=== PATIENT | female | born 1995 | race Hispanic/Latino ===

== ENCOUNTER 2017-10-05 07:33 | Emergency (ER) | payer SELFPAY ==
[2017-10-05] MEDS ORDERED: IBUPROFEN 400 MG TAB ONE (08:00)
[2017-10-05] MEDS ORDERED: NA CHLORIDE 0.9% 1,000 ML ONE (08:00)
[2017-10-05] MEDS ORDERED: LEVALBUTEROL 1.25 MG/3 ML NEB ONE ×2 (08:00→10:41)
--- NOTE | 2017-10-05 08:24 | RAD REPORT ---
EXAM DESCRIPTION: RAD - Chest Single View - 10/05/2017 8:13 am CLINICAL HISTORY: Cough, fever, shortness of breath COMPARISON: May 2016 TECHNIQUE: AP portable chest image was obtained 0756 hours . FINDINGS: Lungs are clear. Heart and vasculature are normal. No measurable pleural effusion and no p neumothorax. No gross bony abnormality seen. No acute aortic findings suspected. IMPRESSION: No acute cardiopulmonary process. No significant interval change.
[2017-10-05 08:41] LABS: Bicarbonate 22 mEq/L (21-31); Glucose Level 141 mg/dL (65-120); Lipase 32 U/L (22-51); Potassium 4.2 mEq/L (3.6-5.0); Sodium Level 136 mEq/L (135-145)
[2017-10-05 08:47] LABS: ALT/SGPT 35 IU/L (10-60); AST/SGOT 32 IU/L (10-42); Albumin 4.2 g/dL (3.2-5.5); Alkaline Phosphatase 101 IU/L (42-121); BUN Blood Urea Nitrogen 18 mg/dL (6-20); Bilirubin Direct 0.1 mg/dL (0-0.2); Protein, Total 8.4 g/dL (6.0-8.3)
--- NOTE | 2017-10-05 09:14 | EKG ---
Test Date: 2017-10-05 Test Time: 08:14:39 Customs Investigator: CINDY MEASUREMENT RESULTS: Intervals: Rate: 118 MD: 120 QRSD: 72 QT: 322 QTc: 451 Roscoe: P: 45 MD: 120 QRS: 79 T: 17 INTERPRETIVE STATEMENTS: Sinus tachycardia Otherwise normal ECG Compared to ECG 06/10/2016 01:25:26 No significant changes Electronically Signed On 10-05-17 09:14:18 CDT by Scott Donovan
[2017-10-05 09:23] LABS: Hematocrit 37.9 % (36.0-45.0); MCH 31.1 pg (27.0-35.0); MCV 90.8 fL (80-100); MPV 8.6 fL (7.6-11.3); RBC Red Blood Cell Count 4.17 M/uL (3.86-4.86)
[2017-10-05 09:47] LABS: Urine Blood 2+ (NEG); Urine Glucose NEGATIVE (NEG); Urine Protein 3+ (NEG); Urine Specific Gravity >1.030 (1.005-1.030); Urine pH 7.5 (5.0-7.0)
--- NOTE | 2017-10-05 10:00 | RAD REPORT ---
EXAM DESCRIPTION: CT - Chest For Pe Angio - 10/05/2017 9:49 am CLINICAL HISTORY: Cough, fever, shortness of breath COMPARISON: Chest films same date, PE study May 2016 TECHNIQUE: Dynamically enhanced 3 mm thick images of the chest were obtained during administration o f approximately 150mL Isovue 370 IV contrast. Coronal and oblique reconstruction images were generate d and reviewed. Exam utilizes a protocol to evaluate the pulmonary arterial tree. All CT scans are performed using dose optimization technique as appropriate and may include automated exposure control or mA/KV adjustment according to patient size. FINDINGS: Contrast density within the pulmonary arterial tree is not optimal but is felt to be suffi cient for diagnostic purposes. No pulmonary emboli seen. The aorta as imaged shows no acute or suspicious finding. No pericardial thickening or effusion. No infiltrate or mass in the lung parenchyma. Minimal scarring or atelectasis changes noted. No pleur al effusion or pleural thickening. No pneumothorax seen. No mediastinal or hilar suspicious masses. No chest wall masses or abnormal axillary lymphadenopathy. Limited imaging of the upper abdomen shows a pronounced fatty infiltration pattern of an enlarged saranya er. IMPRESSION: No pulmonary emboli identified. No other significant CT chest finding. Pronounced fatty infiltration of a partially imaged liver. Liver appears prominent in size.
[2017-10-05 10:23] LABS: Blood Morphology Comment NOT SEEN (NOT SEEN); Platelet Estimate ADEQ
[2017-10-05] MEDS ORDERED: METHYLPREDNISOLONE 125 MG INJ ONE (10:40)
[2017-10-05] MEDS ORDERED: AZITHROMYCIN 500 MG/250 ML BAG IV ONE (10:45)
--- NOTE | 2017-10-05 11:24 | ER ---
Nurse's Notes [facility] Name: Mckenzie Ornelas Age: 22 yrs Sex: Female : 1995 Arrival Date: 10/05/2017 Time: 07:35 Bed 6 Private MD: Diagnosis: Bronchitis, not specified as acute or chronic;Wheezing Presentation: 10/05 07:39 Presenting complaint: Patient states: fever, cough and shortness of breath that began ss approx 5-6 days ago. Transition of care: patient was not received from another setting of care. Onset of symptoms was September 30, 2017. Initial Sepsis Screen: Does the patient meet any 2 criteria? RR > 20 per min. HR > 90 bpm. Does the patient have a suspected source of infection? Yes: Productive cough/pneumonia. Care prior to arrival: None. 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 - Social history:: Smoking status: Patient/guardian denies using tobacco. - Family history:: not pertinent. - Hospitalizations: : No recent hospitalization is reported. Screenin:15 Abuse screen: Denies threats or abuse. Denies injuries from another. Nutritional sv screening: No deficits noted. Tuberculosis screening: No symptoms or risk factors identified. Fall Risk None identified. Assessment: 08:03 General: Appears in no apparent distress. uncomfortable, well developed, Behavior is sv calm, cooperative, appropriate for age. General: Reports fever. Pain: Denies pain. Neuro: Level of Consciousness is awake, alert, obeys commands, Oriented to person, place, time, situation, Moves all extremities. Full function Speech is normal. Cardiovascular: Thorax. Respiratory: Reports cough that is non-productive, Respiratory effort is even, unlabored, Respiratory pattern is regular, symmetrical, Breath sounds are diminished in left posterior upper lobe and left posterior lower lobe Breath sounds with wheezes bilaterally. Derm: Skin is normal. Musculoskeletal: Range of motion: intact in all extremities. 09:00 Reassessment: Patient appears in no apparent distress at this time. No changes from hb previously documented assessment. Patient and/or family updated on plan of care and expected duration. Pain level reassessed. 10:49 Reassessment: Patient appears in no apparent distress at this time. Patient and/or sv family updated on plan of care and expected duration. Pain level reassessed. Patient is alert, oriented x 3, equal unlabored respirations, skin warm/dry/pink. 11:16 Reassessment: Patient appears in no apparent distress at this time. Patient and/or sv family updated on plan of care and expected duration. Pain level reassessed. Patient is alert, oriented x 3, equal unlabored respirations, skin warm/dry/pink. Patient states feeling better. Patient states symptoms have improved. 11:25 Reassessment: Pt up for discharge but pt receiving IV antibiotic and is to receive sv another breathing treatment and magnesium sulfate IV. Vital Signs: 07:40 BP 130 / 88; Pulse 129; Resp 32; Temp 99.3(TE); Pulse Ox 93% on R/A; Height 4 ft. 11 ss in. (149.86 cm); Pain 0/10; 08:41 BP 125 / 67; Pulse 108; Resp 26; Pulse Ox 100% on 10% Nebulizer Mask; jb1 09:16 BP 130 / 82; Pulse 104; Resp 24; Pulse Ox 96% on 2 lpm NC; hb 10:04 BP 121 / 70; Pulse 101; Resp 24; Pulse Ox 96% on 2 lpm NC; jb1 11:02 BP 125 / 68; Pulse 99; Resp 22; Pulse Ox 97% on 2 lpm NC; jb1 ED Course: 07:35 Patient arrived in ED. as 07:40 Triage completed. ss 07:40 Arm band placed on right wrist. ss 07:42 Kvng Mejia MD is Attending Physician. rn 07:56 Amanda Smith RN is Primary Nurse. sv 08:00 Patient has correct armband on for positive identification. Placed in gown. Bed in low hb position. Call light in reach. Side rails up X 1. 08:04 X-ray completed. Portable x-ray completed in exam room. Patient tolerated procedure jb2 well. 08:05 XRAY CXR (1 view) In Process Unspecified. EDMS 08:05 Initial lab(s) drawn, by ED staff, sent to lab. First set of blood cultures drawn by ED sv staff. Inserted saline lock: 20 gauge in right antecubital area, using aseptic technique. ,using aseptic technique. done by Shivani Hayes RN Blood collected. 09:19 Radiology exam delayed due to test not completed at this time. jg1 09:23 Throat Culture Sent. sv 09:23 Urine Dipstick--Ancillary (enter results) Sent. sv 09:44 CT completed. Patient tolerated procedure well. Patient moved to CT via stretcher. jg1 09:50 CT Chest For PE Angio In Process Unspecified. EDMS 12:52 No provider procedures requiring assistance completed. IV discontinued, intact, hb bleeding controlled, No redness/swelling at site. Pressure dressing applied. Administered Medications: 08:05 Drug: Xopenex 1.25 mg Route: Inhalation; hb 08:05 Drug: Ibuprofen 800 mg Route: PO; hb 09:23 Follow up: Response: No adverse reaction sv 08:13 Drug: NS 0.9% 1000 ml Route: IV; Rate: 1000 ml; Site: right antecubital; hb 10:49 Drug: SOLU-Medrol 125 mg Route: IVP; Site: right antecubital; sv 11:16 Follow up: Response: No adverse reaction sv 10:49 Drug: Xopenex (3) 1.25 mg Route: Inhalation; sv 11:16 Follow up: Response: No adverse reaction; Marked relief of symptoms sv 11:16 Drug: Zithromax 500 mg Route: IVPB; Infused Over: 1 hrs; Site: right antecubital; sv 12:16 Follow up: Response: No adverse reaction; IV Status: Completed infusion; IV Intake: sv 250ml 11:30 Drug: AtroVENT Aerosol 0.5 mg Route: Inhalation; sv 11:30 Drug: Magnesium Sulfate 1 grams Route: IVPB; Infused Over: 1 hrs; Site: right sv antecubital; 12:30 Follow up: Response: No adverse reaction; IV Status: Completed infusion; IV Intake: sv 100ml Intake: 12:16 IV: 250ml; Total: 250ml. sv 12:30 IV: 100ml; Total: 350ml. sv Outcome: 11:23 Discharge ordered by MD. hdz 12:52 Discharged to home ambulatory. hb 12:52 Condition: stable 12:52 Discharge instructions given to patient, family, Instructed on discharge instructions, follow up and referral plans. medication usage, Demonstrated understanding of instructions, follow-up care, medications, Prescriptions given X 3. 12:53 Patient left the ED. hb Signatures: Dispatcher [employer] EDMS Sam Devi1 Amanda Smith, JEFFERY RN Bubba Willson2 Rachael Hawkins Amelia as Nieto, Roman, MD MD rn Smirch, Shelby, RN RN Shivani Jiménez RN RN hb
--- NOTE | 2017-10-05 11:24 | EDPHYS ---
Physician Documentation [facility] Name: Mckenzie Ornelas Age: 22 yrs Sex: Female : 1995 Arrival Date: 10/05/2017 Time: 07:35 Bed 6 Private MD: ED Physician Kvng Mejia HPI: 10/05 07:58 This 22 yrs old Female presents to ER via Ambulatory with complaints of Cough, rn Fever. 07:58 The patient or guardian reports cough, described as moderate, with productive sputum. rn Onset: The symptoms/episode began/occurred 3 day(s) ago. Severity of symptoms: At their worst the symptoms were moderate, in the emergency department the symptoms are unchanged. Modifying factors: The symptoms are alleviated by nothing, the symptoms are aggravated by nothing. The patient has not experienced similar symptoms in the past. Reports fever, cough, sob, for 3 days, worsening, green sputum, no sick contacts, no hx of dvt/PE, no risk factors for dvt/pe.. 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 - Social history:: Smoking status: Patient/guardian denies using tobacco. - Family history:: not pertinent. - Hospitalizations: : No recent hospitalization is reported. ROS: 07:58 Constitutional: Negative for weight loss, Eyes: Negative for injury, pain, redness, and furnace helper, ENT: + sore throat Neck: Negative for injury, pain, and swelling, Cardiovascular: Negative for chest pain, palpitations, and edema, Respiratory: + sob and cough Abdomen/GI: Negative for abdominal pain, nausea, vomiting, diarrhea, and constipation, Back: Negative for injury and pain, MS/Extremity: Negative for injury and deformity, Skin: Negative for injury, rash, and discoloration, Neuro: Negative for headache, weakness, numbness, tingling, and seizure. Exam: 07:58 Constitutional: This is a well developed, well nourished patient who is awake, alert, rn moderate tachypnea Head/Face: Normocephalic, atraumatic. Eyes: Pupils equal round and reactive to light, extra-ocular motions intact. Lids and lashes normal. Conjunctiva and sclera are non-icteric and not injected. Cornea within normal limits. Periorbital areas with no swelling, redness, or edema. ENT: mild pharyngela erythema, no stridor, no oral swelling, absent tonsils Neck: + cervical LAD Cardiovascular: tachycardic, regular, no murmur Respiratory: + moderate tachypnea, faint exp wheezing at bases. Abdomen/GI: Soft, non-tender, with normal bowel sounds. No distension or tympany. No guarding or rebound. No evidence of tenderness throughout. MS/ Extremity: Pulses equal, no cyanosis. Neurovascular intact. Full, normal range of motion. Equal circumference. Neuro: Awake and alert, GCS 15, oriented to person, place, time, and situation. Cranial nerves II-XII grossly intact. Motor strength 5/5 in all extremities. Sensory grossly intact. Cerebellar exam normal. Normal gait. Vital Signs: 07:40 BP 130 / 88; Pulse 129; Resp 32; Temp 99.3(TE); Pulse Ox 93% on R/A; Height 4 ft. 11 ss in. (149.86 cm); Pain 0/10; 08:41 BP 125 / 67; Pulse 108; Resp 26; Pulse Ox 100% on 10% Nebulizer Mask; jb1 09:16 BP 130 / 82; Pulse 104; Resp 24; Pulse Ox 96% on 2 lpm NC; hb 10:04 BP 121 / 70; Pulse 101; Resp 24; Pulse Ox 96% on 2 lpm NC; jb1 11:02 BP 125 / 68; Pulse 99; Resp 22; Pulse Ox 97% on 2 lpm NC; jb1 MDM: 07:42 Patient medically screened. rn 11:21 Response to treatment: the patient's symptoms have markedly improved after treatment, rn and as a result, I will discharge patient. Special discussion: I discussed with the patient/guardian in detail that at this point there is no indication for admission to the hospital. It is understood, however, that if the symptoms persist or worsen the patient needs to return immediately for re-evaluation. Based on the history and exam findings, there is no indication for further emergent testing or inpatient evaluation. I discussed with the patient/guardian the need to see the primary care provider for further evaluation of the symptoms. I discussed with the patient/guardian the need to see the electronic test technician for further evaluation of the symptoms. ED course: improved air movement both lungs, still faint wheezing, feels better, ct normal, most likely bronchitis with reactive airway disease, will dc home with steroids/abx/inhaler, and recommend outpt pulmonology eval. . 10/05 07:53 Order name: Blood Culture Adult (2) 10/05 07:53 Order name: BMP; Complete Time: 08:58 10/05 07:53 Order name: BNP; Complete Time: 10:10 10/05 07:53 Order name: CBC with Diff 10/05 07:53 Order name: Hepatic Function; Complete Time: 08:58 10/05 07:53 Order name: Lipase; Complete Time: 08:58 10/05 07:53 Order name: Troponin (emerg Dept Use Only); Complete Time: 08:58 10/05 07:53 Order name: Strep; Complete Time: 08:58 10/05 07:53 Order name: Flu; Complete Time: 08:58 10/05 07:53 Order name: Procalcitonin; Complete Time: 10:10 10/05 08:15 Order name: Urine Dipstick--Ancillary (enter results) [facility] 10/05 08:15 Order name: Urine --Ancillary (enter results); Complete Time: 10:10 [facility] 10/05 08:15 Order name: Urine Dipstick-Ancillary; Complete Time: 10:10 [facility] 10/05 08:49 Order name: Throat Culture [facility] 10/05 07:53 Order name: Urine Test (obtain specimen); Complete Time: 08:14 10/05 07:53 Order name: XRAY CXR (1 view); Complete Time: 08:30 10/05 07:53 Order name: EKG; Complete Time: 07:53 10/05 07:53 Order name: Cardiac monitoring; Complete Time: 08:13 10/05 07:53 Order name: EKG - Nurse/Tech; Complete Time: 08:13 10/05 08:31 Order name: CT Chest For PE Angio; Complete Time: 10:10 10/05 09:29 Order name: Manual Differential [facility] 10/05 12:21 Order name: Diet Regular; Complete Time: 12:22 hb 10/05 07:53 Order name: IV Saline Lock; Complete Time: 08:13 rn 10/05 07:53 Order name: Labs collected and sent; Complete Time: 08:14 rn 10/05 07:53 Order name: O2 Per Protocol; Complete Time: 08:14 rn 10/05 07:53 Order name: O2 Sat Monitoring; Complete Time: 08:14 rn 10/05 07:53 Order name: Urine Dipstick-Ancillary (obtain specimen); Complete Time: 08:14 rn Administered Medications: 08:05 Drug: Xopenex 1.25 mg Route: Inhalation; hb 08:05 Drug: Ibuprofen 800 mg Route: PO; hb 09:23 Follow up: Response: No adverse reaction sv 08:13 Drug: NS 0.9% 1000 ml Route: IV; Rate: 1000 ml; Site: right antecubital; hb 10:49 Drug: SOLU-Medrol 125 mg Route: IVP; Site: right antecubital; sv 11:16 Follow up: Response: No adverse reaction sv 10:49 Drug: Xopenex (3) 1.25 mg Route: Inhalation; sv 11:16 Follow up: Response: No adverse reaction; Marked relief of symptoms sv 11:16 Drug: Zithromax 500 mg Route: IVPB; Infused Over: 1 hrs; Site: right antecubital; sv 12:16 Follow up: Response: No adverse reaction; IV Status: Completed infusion; IV Intake: sv 250ml 11:30 Drug: AtroVENT Aerosol 0.5 mg Route: Inhalation; sv 11:30 Drug: Magnesium Sulfate 1 grams Route: IVPB; Infused Over: 1 hrs; Site: right sv antecubital; 12:30 Follow up: Response: No adverse reaction; IV Status: Completed infusion; IV Intake: sv 100ml Disposition: 10/05/17 11:23 Discharged to Home. Impression: Bronchitis, not specified as acute or chronic, Wheezing. - Condition is Stable. - Discharge Instructions: Acute Bronchitis, How to Use an Inhaler, Cough, Adult. - Prescriptions for Prednisone 20 mg Oral Tablet - take 3 tablet by ORAL route once daily for 5 days; 15 tablet. Zithromax Z- Fidel 250 mg Oral Tablet - take 1 tablet by ORAL route as directed for 5 days Day 1 - take two (2) tablets one time. Day 2, 3, 4 , 5 take one (1) tablet once daily.; 6 tablet. Albuterol Sulfate 90 mcg/actuation - inhale 1-2 puff by INHALATION route every 4-6 hours; 1 Inhaler. - Medication Reconciliation Form, Thank You Letter, Antibiotic Education, Prescription Opioid Use, Work release form form. - Follow up: Private Physician; When: As needed; Reason: Recheck today's complaints, Re-evaluation by your physician. - Problem is new. - Symptoms have improved. Signatures: Dispatcher [employer] Amanda Wolf, JEFFERY RN Kvng Weinberg MD MD rn Smirch, Shelby, RN RN ss Baxter, Heather, RN RN
[2017-10-05] MEDS ORDERED: MAGNESIUM SULFATE 1 gm IVPB 1 GM/100 ML BAG IV ONE (11:27)
[2017-10-05] MEDS ORDERED: IPRATROPIUM BROM 0.5MG/2.5ML ONE (11:27)
[2017-10-05 12:59] VITALS: TEMP 99.3
[2017-10-05 13:04] VITALS: BP 125/68; O2SAT 97
== END 2017-10-05 12:53 | disposition home or self-care (01) ==
LOC: ER 07:33
DX: J40 Bronchitis, not specified as acute or chronic (principal); R06.2 Wheezing; Z88.0 Allergy status to penicillin
CPT/HCPCS: 36415; 71045; 71275; 80048; 80076; 81003; 81025; 83690; 83880; 84145; 84484; 85025; 87040; 87070; 87081; 87804; 93005; 96365; 96375; 99285; J0456; J2930; J3475; J7030; Q9967

== ENCOUNTER 2018-01-02 21:31 | Emergency (ER) | payer SELFPAY ==
[2018-01-02 22:26] LABS: Urine Blood TRACE (NEG); Urine Glucose NEGATIVE (NEG); Urine Protein 3+ (NEG); Urine Specific Gravity >1.030 (1.005-1.030); Urine pH 6.5 (5.0-7.0)
[2018-01-02] MEDS ORDERED: predniSONE 20 MG TAB ONE (22:31)
[2018-01-02] MEDS ORDERED: ALBUTEROL 2.5 MG/3 ML NEB SOL ONE (22:31)
[2018-01-02] MEDS ORDERED: IPRATROPIUM BROM 0.5MG/2.5ML ONE (22:31)
[2018-01-02] MEDS ORDERED: ONDANSETRON 4 MG (ODT) TAB ONE (22:32)
[2018-01-02] MEDS ORDERED: NA CHLORIDE 0.9% 1,000 ML ONE (23:20)
--- NOTE | 2018-01-03 00:25 | ER ---
Nurse's Notes [facility] Name: Mckenzie Ornelas Age: 22 yrs Sex: Female : 1995 Arrival Date: 01/02/2018 Time: 21:46 Bed 13 Private MD: Diagnosis: Fever presenting with conditions classified elsewhere;Acute bronchitis;Dehydration Presentation: 01/02 21:46 Presenting complaint: Patient states: fever X2 days. pt c/o vomiting today. pt c/o body ak1 aches and headache. Transition of care: patient was not received from another setting of care. Onset of symptoms was January 01, 2018. Risk Assessment: Do you want to hurt yourself or someone else? Patient reports no desire to harm self or others. Initial Sepsis Screen: Does the patient meet any 2 criteria? No. Patient's initial sepsis screen is negative. Does the patient have a suspected source of infection? No. Patient's initial sepsis screen is negative. Care prior to arrival: None. 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 - Social history:: Smoking status: Patient/guardian denies using tobacco. - Ebola Screening: : No symptoms or risks identified at this time. Screenin:48 Abuse screen: Denies threats or abuse. Denies injuries from another. Nutritional ak1 screening: No deficits noted. Tuberculosis screening: No symptoms or risk factors identified. Fall Risk None identified. Assessment: 22:00 General: Appears in no apparent distress. uncomfortable, ill, Behavior is calm, bs1 cooperative, appropriate for age. Pain: Complains of pain in headache, bilateral ears. Neuro: Level of Consciousness is awake, alert, obeys commands, Oriented to person, place, time, situation, Appropriate for age Reports dizziness, headache weakness. Cardiovascular: Denies chest pain, shortness of breath, Heart tones S1 S2 present Capillary refill < 3 seconds Patient's skin is warm and dry. Respiratory: Airway is patent Trachea midline Respiratory effort is even, unlabored, Respiratory pattern is regular, symmetrical, Breath sounds are clear bilaterally. Respiratory: Reports cough that is non-productive. GI: Abdomen is round non-distended, Bowel sounds present X 4 quads. : No signs and/or symptoms were reported regarding the genitourinary system. EENT: Nares with drainage noted reports chest congestion. Derm: Skin is intact, Skin is pink, warm \T\ dry. normal. Musculoskeletal: No deficits noted. 23:45 Reassessment: Patient appears in no apparent distress at this time. Patient and/or bs1 family updated on plan of care and expected duration. Pain level reassessed. Patient is alert, oriented x 3, equal unlabored respirations, skin warm/dry/pink. Patient states feeling better. Patient states symptoms have improved. 01/03 00:45 Reassessment: Patient states understanding of DC instructions. bs1 Vital Signs: 01/02 21:48 BP 133 / 85; Pulse 119; Resp 18; Temp 99.2; Pulse Ox 96% on R/A; Weight 79.38 kg (R); ak1 Height 4 ft. 11 in. (149.86 cm) (R); Pain 6/10; 22:40 BP 116 / 82; Pulse 105; Resp 18; Pulse Ox 99% on R/A; bs1 23:40 BP 114 / 86; Pulse 101; Resp 18 S; Pulse Ox 99% on R/A; bs1 01/03 00:45 BP 110 / 67; Pulse 100; Resp 18; Temp 98.9(O); Pulse Ox 100% on R/A; Pain 0/10; bs1 01/02 21:48 Body Mass Index 35.35 (79.38 kg, 149.86 cm) ak1 ED Course: 01/02 21:46 Patient arrived in ED. ak1 21:47 Triage completed. ak1 21:48 Arm band placed on Patient placed in an exam room, on a stretcher, Patient notified of ak1 wait time. 21:56 Oliver Islas MD is Attending Physician. 22:00 Becca Max, JEFFERY is Primary Nurse. bs1 22:26 Patient moved to radiology via wheelchair. sw 22:30 X-ray completed. Patient tolerated procedure well. Patient moved back from radiology. sw 22:30 XRAY Chest Pa And Lat (2 Views) In Process Unspecified. EDMS 22:55 Patient has correct armband on for positive identification. Bed in low position. Call bs1 light in reach. Side rails up X 1. Pulse ox on. NIBP on. 23:24 Inserted saline lock: 22 gauge in left antecubital area, using aseptic technique. [id number] 01/03 00:43 No provider procedures requiring assistance completed. IV discontinued, bleeding bs1 controlled, No redness/swelling at site. Pressure dressing applied. Administered Medications: 01/02 22:41 Drug: Zofran 4 mg Route: PO; bs1 01/03 00:45 Follow up: Response: No adverse reaction bs1 01/02 22:41 Drug: Albuterol 2.5 mg Route: Inhalation; bs1 01/03 00:45 Follow up: Response: No adverse reaction bs1 01/02 22:41 Drug: AtroVENT Aerosol 0.5 mg Route: Inhalation; bs1 01/03 00:46 Follow up: Response: No adverse reaction bs1 01/02 22:41 Drug: predniSONE 40 mg Route: PO; bs1 01/03 00:45 Follow up: Response: No adverse reaction bs1 01/02 23:22 Drug: NS 0.9% 1000 ml Route: IV; Rate: 1 bolus; Site: left antecubital; bs1 01/03 00:45 Follow up: IV Status: Completed infusion bs1 Outcome: 00:24 Discharge ordered by MD. 00:43 Discharged to home ambulatory, with family. bs1 00:43 Condition: stable 00:43 Discharge instructions given to patient, Instructed on discharge instructions, follow up and referral plans. medication usage, Demonstrated understanding of instructions, follow-up care, medications, Prescriptions given X 3. 00:48 Patient left the ED. bs1 Signatures: Dispatcher [employer] EDMS Ronna Hassan RN RN ak1 Ivy Bain Oliver Islas MD MD gs Salazar, Brittany, RN RN bs1 Eder Denton ks6 Corrections: (The following items were deleted from the chart) 01/02 21:51 21:46 Acuity: MARY BETH 4 ak1 akBatsheva
--- NOTE | 2018-01-03 00:25 | EDPHYS ---
Physician Documentation [facility] Name: Mckenzie Ornelas Age: 22 yrs Sex: Female : 1995 Arrival Date: 01/02/2018 Time: 21:46 Bed 13 Private MD: ED Physician Oliver Islas HPI: 01/02 23:23 This 22 yrs old Female presents to ER via Ambulatory with unknown complaint. gs 23:23 The patient or guardian reports cough, described as moderate, difficulty breathing, flu gs symptoms, arthralgias, low-grade fever, myalgias. Onset: The symptoms/episode began/occurred gradually. Severity of symptoms: At their worst the symptoms were moderate, in the emergency department the symptoms are unchanged. Modifying factors: The symptoms are alleviated by Tylenol. Associated signs and symptoms: The patient has no apparent associated signs or symptoms, Pertinent positives: fever, vomiting, Pertinent negatives: chest pain, ear ache. The patient has experienced similar episodes in the past, a few times. 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 - Social history:: Smoking status: Patient/guardian denies using tobacco. - Ebola Screening: : No symptoms or risks identified at this time. ROS: 23:23 All other systems are negative. gs Exam: 23:23 Head/Face: Normocephalic, atraumatic. Eyes: Pupils equal round and reactive to light, gs extra-ocular motions intact. Lids and lashes normal. Conjunctiva and sclera are non-icteric and not injected. Cornea within normal limits. Periorbital areas with no swelling, redness, or edema. ENT: Nares patent. No nasal discharge, no septal abnormalities noted. Tympanic membranes are normal and external auditory canals are clear. Oropharynx with no redness, swelling, or masses, exudates, or evidence of obstruction, uvula midline. Mucous membranes moist. Neck: Trachea midline, no thyromegaly or masses palpated, and no cervical lymphadenopathy. Supple, full range of motion without nuchal rigidity, or vertebral point tenderness. No Meningismus. Chest/axilla: Normal chest wall appearance and motion. Nontender with no deformity. No lesions are appreciated. 23:23 Abdomen/GI: Soft, non-tender, with normal bowel sounds. No distension or tympany. No guarding or rebound. No evidence of tenderness throughout. Back: No spinal tenderness. No costovertebral tenderness. Full range of motion. Skin: Warm, dry with normal turgor. Normal color with no rashes, no lesions, and no evidence of cellulitis. MS/ Extremity: Pulses equal, no cyanosis. Neurovascular intact. Full, normal range of motion. Neuro: Awake and alert, GCS 15, oriented to person, place, time, and situation. Cranial nerves II-XII grossly intact. Motor strength 5/5 in all extremities. Sensory grossly intact. Cerebellar exam normal. Normal gait. 23:23 Constitutional: The patient appears alert, awake, non-toxic. 23:23 Cardiovascular: Rate: tachycardic, Rhythm: regular, Pulses: no pulse deficits are appreciated, Heart sounds: normal. 23:23 Respiratory: the patient does not display signs of respiratory distress, Respirations: normal, symetrical, no use of accessory muscles, Breath sounds: wheezing: expiratory is heard diffusely. Vital Signs: 21:48 BP 133 / 85; Pulse 119; Resp 18; Temp 99.2; Pulse Ox 96% on R/A; Weight 79.38 kg (R); ak1 Height 4 ft. 11 in. (149.86 cm) (R); Pain 6/10; 22:40 BP 116 / 82; Pulse 105; Resp 18; Pulse Ox 99% on R/A; bs1 23:40 BP 114 / 86; Pulse 101; Resp 18 S; Pulse Ox 99% on R/A; bs1 01/03 00:45 BP 110 / 67; Pulse 100; Resp 18; Temp 98.9(O); Pulse Ox 100% on R/A; Pain 0/10; bs1 01/02 21:48 Body Mass Index 35.35 (79.38 kg, 149.86 cm) ak1 MDM: 01/02 22:18 Patient medically screened. 23:23 Differential Diagnosis: Bronchitis Influenza Pneumonia. Data reviewed: vital signs, nurses notes. Response to treatment: the patient's symptoms have markedly improved after treatment, and as a result, I will discharge patient. 01/02 22:21 Order name: Urine Dipstick--Ancillary (enter results); Complete Time: 23:03 il 01/02 22:21 Order name: Urine --Ancillary (enter results); Complete Time: 23:03 il 01/02 22:19 Order name: XRAY Chest Pa And Lat (2 Views) Administered Medications: 22:41 Drug: Zofran 4 mg Route: PO; rust 01/03 00:45 Follow up: Response: No adverse reaction rust 01/02 22:41 Drug: Albuterol 2.5 mg Route: Inhalation; bs1 01/03 00:45 Follow up: Response: No adverse reaction rust 01/02 22:41 Drug: AtroVENT Aerosol 0.5 mg Route: Inhalation; 1 01/03 00:46 Follow up: Response: No adverse reaction rust 01/02 22:41 Drug: predniSONE 40 mg Route: PO; rust 01/03 00:45 Follow up: Response: No adverse reaction rust 01/02 23:22 Drug: NS 0.9% 1000 ml Route: IV; Rate: 1 bolus; Site: left antecubital; 1 01/03 00:45 Follow up: IV Status: Completed infusion bs1 Disposition: 01/03/18 00:24 Discharged to Home. Impression: Fever presenting with conditions classified elsewhere, Acute bronchitis, Dehydration. - Condition is Stable. - Discharge Instructions: Acute Bronchitis, Adult, Dehydration, Adult, Fever, Adult. - Prescriptions for Prednisone 20 mg Oral Tablet - take 1 tablet by ORAL route once daily for 5 days; 5 tablet. Zofran 4 mg Oral Tablet - take 1 tablet by ORAL route every 12 hours As needed; 6 tablet. Albuterol Sulfate 90 mcg/actuation - inhale 1-2 puff by INHALATION route every 4-6 hours; 1 Inhaler. - Medication Reconciliation Form, Thank You Letter, Antibiotic Education, Prescription Opioid Use, Work release form form. - Follow up: Private Physician; When: 2 - 3 days; Reason: Re-evaluation by your physician. Signatures: Dispatcher [employer] Ronna Hsu RN RN ak1 Oliver Islas MD MD gs Salazar, Brittany RN RN bs1 Corrections: (The following items were deleted from the chart) 00:48 00:24 01/03/2018 00:24 Discharged to Home. Impression: Fever presenting with conditions bs1 classified elsewhere; Acute bronchitis; Dehydration. Condition is Stable. Forms are Medication Reconciliation Form, Thank You Letter, Antibiotic Education, Prescription Opioid Use. Follow up: Private Physician; When: 2 - 3 days; Reason: Re-evaluation by your physician. gs
[2018-01-03 00:56] VITALS: BP 110/67; TEMP 98.9; O2SAT 100
--- NOTE | 2018-01-03 08:12 | RAD REPORT ---
EXAM DESCRIPTION: Heather Allison (2 Views)01/02/2018 10:34 pm CLINICAL HISTORY: Fever COMPARISON: September 2017 FINDINGS: The lungs appear clear of acute infiltrate. The heart is normal size IMPRESSION: No acute abnormalities displayed
== END 2018-01-03 00:48 | disposition home or self-care (01) ==
LOC: ER 21:31
DX: J20.9 Acute bronchitis, unspecified (principal); E86.0 Dehydration; Z88.0 Allergy status to penicillin
CPT/HCPCS: 71046; 81003; 81025; 96360; 99284; J7030; J7512

== ENCOUNTER 2018-10-07 01:56 | Emergency (ER) | payer SELFPAY ==
[2018-10-07] MEDS ORDERED: FAMOTIDINE 20 MG/2 ML VIAL IV ONE (02:40)
[2018-10-07] MEDS ORDERED: NA CHLORIDE 0.9% 1,000 ML ONE (02:40)
[2018-10-07] MEDS ORDERED: METOCLOPRAMIDE 10 MG/2mL INJ ONE (02:40)
[2018-10-07 03:10] LABS: Absolute Lymphocytes (CBC) 3.2 K/uL (0.7-4.9); Absolute Monocytes 0.4 K/uL (0.1-1.3); Absolute Neutrophil 5.3 K/uL (1.8-8.0); Basophils % 0.3 % (0-1.3); Eosinophils % 4.5 % (0-4.4); Lymphocytes % 34.4 % (15.3-44.8); RBC Red Blood Cell Count 3.93 M/uL (3.86-4.86)
[2018-10-07 03:36] LABS: ALT/SGPT 51 U/L (12-78); AST/SGOT 33 U/L (15-37); Albumin 3.8 g/dL (3.4-5.0); Alkaline Phosphatase 91 U/L (45-117); BUN Blood Urea Nitrogen 21 mg/dL (7-18); Bicarbonate 25 mmol/L (21-32); Bilirubin Direct 0.1 mg/dL (0-0.2); Bilirubin Total 0.8 mg/dL (0.2-1.0); Glucose Level 108 mg/dL (74-106); Lipase 169 U/L (73-393); Potassium 3.5 mmol/L (3.5-5.1); Protein, Total 7.8 g/dL (6.4-8.2); Sodium Level 142 mmol/L (136-145)
--- NOTE | 2018-10-07 03:53 | EDPHYS ---
Physician Documentation [facility] Name: Mckenzie Ornelas Age: 23 yrs Sex: Female : 1995 Arrival Date: 10/07/2018 Time: 01:59 Bed 5 Private MD: ED Physician Lauri Doyle HPI: 10/07 02:25 This 23 yrs old Female presents to ER via Ambulatory with complaints of cp Nausea/Vomiting, Headache, Dizziness, Abdominal Pain. 02:25 The patient presents to the emergency department with nausea, that is moderate, cp vomiting, that is intermittent, described as bilious, diarrhea, that is intermittent. 02:25 Onset: The symptoms/episode began/occurred 3 day(s) ago. cp 02:25 Associated signs and symptoms: Pertinent negatives: constipation, dysuria, fever, GI cp bleeding. [place]: 02:08 LMP 09/30/2018 jd3 Historical: - Allergies: 02:08 PENICILLINS; jd3 - Home Meds: 02:08 None [Active]; jd3 - PMHx: 02:08 None; jd3 - PSHx: 02:08 Tonsillectomy; Cholecystectomy; jd3 - Immunization history:: Adult Immunizations up to date. - Social history:: Smoking status: Patient/guardian denies using tobacco. - Ebola Screening: : Patient negative for fever greater than or equal to 101.5 degrees Fahrenheit, and additional compatible Ebola Virus Disease symptoms. ROS: 02:30 Constitutional: Positive for poor PO intake, Negative for body aches, chills, fever. cp 02:30 Eyes: Negative for injury, pain, redness, and discharge. cp 02:30 ENT: Negative for drainage from ear(s), ear pain, sore throat, difficulty swallowing, difficulty handling secretions. 02:30 Neck: Negative for pain with movement, pain at rest, stiffness, tenderness. 02:30 Cardiovascular: Negative for chest pain. 02:30 Respiratory: Negative for cough, shortness of breath, wheezing. 02:30 Abdomen/GI: Positive for abdominal pain, nausea and vomiting, diarrhea, Negative for constipation, hematemesis, black/tarry stool, rectal bleeding. 02:30 Back: Negative for pain at rest, pain with movement. 02:30 : Negative for urinary symptoms. 02:30 Skin: Negative for rash. 02:30 Neuro: Positive for dizziness, headache, Negative for altered mental status, weakness. cp 02:30 All other systems are negative. Exam: 02:45 Constitutional: The patient appears in no acute distress, alert, awake, non-toxic, well cp developed, well nourished. 02:45 Head/Face: Normocephalic, atraumatic. cp 02:45 Eyes: Periorbital structures: appear normal, Conjunctiva: normal, no exudate, no injection, Sclera: no appreciated abnormality, Lids and lashes: appear normal, bilaterally. 02:45 ENT: External ear(s): are unremarkable, Ear canal(s): are normal, clear, TM's: dullness, bilaterally, Nose: is normal, Mouth: Lips: moist, Oral mucosa: pink and intact, moist, Posterior pharynx: Airway: no evidence of obstruction, patent, Tonsils: are normal in appearance, swelling, is not appreciated, erythema, is not appreciated, exudate, is not appreciated. 02:45 Neck: ROM/movement: is normal, is supple, without pain, no range of motions limitations, no meningismus, no nuchal rigidity, Lymph nodes: no appreciated lymphadenopathy. 02:45 Chest/axilla: Inspection: normal, Palpation: is normal, no crepitus, no tenderness. 02:45 Cardiovascular: Rate: normal, Rhythm: regular. 02:45 Respiratory: the patient does not display signs of respiratory distress, Respirations: normal, no use of accessory muscles, no retractions, no splinting, no tachypnea, labored breathing, is not present, Breath sounds: are clear throughout, no decreased breath sounds, no stridor, no wheezing. 02:45 Abdomen/GI: Inspection: abdomen appears normal, Bowel sounds: active, all quadrants, Palpation: abdomen is soft and non-tender, in all quadrants, voluntary guarding, is not appreciated, involuntary guarding, is not appreciated. 02:45 Back: pain, is absent, ROM is normal. 02:45 Neuro: Orientation: to person, place \T\ time. Mentation: is normal, Cerebellar function: is grossly normal, Motor: moves all fours, strength is normal, Gait: is steady. Vital Signs: 02:08 BP 127 / 80; Pulse 66; Resp 16 S; Temp 98.5(O); Pulse Ox 100% on R/A; Weight 86.18 kg jd3 (R); Height 4 ft. 11 in. (149.86 cm) (R); Pain 0/10; 02:47 BP 115 / 80 Supine; Pulse 80; ao 02:48 BP 123 / 84 Sitting; Pulse 77 LA; ao 02:50 BP 109 / 75 Standing; Pulse 81 RA; ao 03:26 BP 97 / 59; Pulse 78; Resp 16; Pulse Ox 100% on R/A; ao 03:58 BP 104 / 68; Pulse 58; Resp 16; Temp 98.5; Pulse Ox 99% on R/A; ak1 02:08 Body Mass Index 38.37 (86.18 kg, 149.86 cm) jd3 MDM: 02:04 Patient medically screened. cp 03:00 Differential diagnosis: Nonspecific abd pain, gastritis, cholecystitis, pancreatitis, cp appendicitis, viral gastroenteritis, gastroenteritis. 03:51 Data reviewed: vital signs, nurses notes, lab test result(s), and as a result, I will cp discharge patient. 03:51 Counseling: I had a detailed discussion with the patient and/or guardian regarding: the cp historical points, exam findings, and any diagnostic results supporting the discharge/admit diagnosis, lab results, to return to the emergency department if symptoms worsen or persist or if there are any questions or concerns that arise at home. Response to treatment: the patient's symptoms have markedly improved after treatment, VSS. Symptoms markedly improved as patient observed sleeping in exam room. 10/07 02:58 Order name: Basic Metabolic Panel; Complete Time: 03:47 EDMS 10/07 03:48 Interpretation: Normal except: CL 109; GLUC 108; BUN 21. cp 10/07 02:19 Order name: Orthostatics; Complete Time: 02:49 cp 10/07 02:58 Order name: Liver (Hepatic) Function; Complete Time: 03:47 EDMS 10/07 02:58 Order name: Lipase; Complete Time: 03:47 EDMS 10/07 02:58 Order name: Creatinine (Radiology Only); Complete Time: 03:47 EDMS 10/07 02:58 Order name: CBC with Automated Diff; Complete Time: 03:47 EDMS 10/07 03:48 Interpretation: Normal except: MCV 94.2; EOSINOPHIL % 4.5. cp 10/07 02:19 Order name: IV Saline Lock; Complete Time: 02:42 cp 10/07 02:19 Order name: Labs collected and sent; Complete Time: 02:42 cp 10/07 02:19 Order name: Urine Dipstick-Ancillary (obtain specimen); Complete Time: 02:22 cp 10/07 02:19 Order name: Urine Test (obtain specimen); Complete Time: 02:22 cp 10/07 03:48 Order name: PO challenge; Complete Time: 03:52 cp Administered Medications: 02:35 Drug: Pepcid 20 mg Route: IVP; Site: right antecubital; ao 04:05 Follow up: Response: No adverse reaction ak1 02:35 Drug: NS 0.9% 1000 ml Route: IV; Rate: 1 bolus; Site: right antecubital; ao 04:05 Follow up: IV Status: Completed infusion; IV Intake: 1000ml ak1 02:36 Drug: Reglan 10 mg Route: IVP; Site: right antecubital; ao 04:05 Follow up: Response: No adverse reaction ak1 Disposition: 10/07/18 03:52 Discharged to Home. Impression: Nausea and vomiting, Diarrhea, unspecified, Headache. - Condition is Stable. - Discharge Instructions: Food Choices to Help Relieve Diarrhea, Adult, Dehydration, Adult, Diarrhea, Adult, Nausea and Vomiting, Adult. - Prescriptions for Pepcid 20 mg Oral Tablet - take 1 tablet by ORAL route every 12 hours for 10 days; 20 tablet. Zofran 4 mg Oral Tablet - take 1 tablet by ORAL route every 12 hours As needed; 20 tablet. - Family Work Release, Medication Reconciliation Form, Thank You Letter, Antibiotic Education, Prescription Opioid Use form. - Follow up: Private Physician; When: 1 - 2 days; Reason: Worsening of condition. - Problem is new. - Symptoms have improved. Addendum: 10/10/2018 11:11 Co-signature as Attending Physician, Lauri Doyle MD I agree with the assessment and c delaney plan of care. Signatures: Dispatcher [employer] Lauri Perkins MD MD cha Page, Corey, PA PA cp Ortiz, Alex RN Singh Du RN RN jd3 Krenek, Amber RN ak1 Corrections: (The following items were deleted from the chart) 10/07 04:08 03:52 10/07/2018 03:52 Discharged to Home. Impression: Nausea and vomiting; Diarrhea, jd3 unspecified; Headache. Condition is Stable. Forms are Medication Reconciliation Form, Thank You Letter, Antibiotic Education, Prescription Opioid Use. Follow up: Private Physician; When: 1 - 2 days; Reason: Worsening of condition. Problem is new. Symptoms have improved. cp 10/08 00:04 10/07 02:30 Neuro: Positive for headache, Negative for altered mental status, cp dizziness, weakness, cp 10/08 00:10/07 02:30 All other systems are negative, cp cp
--- NOTE | 2018-10-07 03:53 | ER ---
Nurse's Notes [facility] Name: Mckenzie Ornelas Age: 23 yrs Sex: Female : 1995 Arrival Date: 10/07/2018 Time: 01:59 Bed 5 Private MD: Diagnosis: Nausea and vomiting;Diarrhea, unspecified;Headache Presentation: 10/07 02:06 Presenting complaint: Patient states: "I have been feeling dizzy for the past few days jd3 and having nausea, vomiting and diarrhea. I am also getting hot flashes.". Transition of care: patient was not received from another setting of care. Onset of symptoms was October 07, 2018. Risk Assessment: Do you want to hurt yourself or someone else? Patient reports no desire to harm self or others. Initial Sepsis Screen: Does the patient meet any 2 criteria? No. Patient's initial sepsis screen is negative. Does the patient have a suspected source of infection? No. Patient's initial sepsis screen is negative. Care prior to arrival: None. 02:06 Method Of Arrival: Ambulatory jd3 02:06 Acuity: MARY BETH 3 jd3 TAFFY CANDY [employer]KER: 02:08 LMP 09/30/2018 jd3 Historical: - Allergies: 02:08 PENICILLINS; jd3 - Home Meds: 02:08 None [Active]; jd3 - PMHx: 02:08 None; jd3 - PSHx: 02:08 Tonsillectomy; Cholecystectomy; jd3 - Immunization history:: Adult Immunizations up to date. - Social history:: Smoking status: Patient/guardian denies using tobacco. - Ebola Screening: : Patient negative for fever greater than or equal to 101.5 degrees Fahrenheit, and additional compatible Ebola Virus Disease symptoms. Screenin:40 Abuse screen: Denies threats or abuse. Denies injuries from another. Nutritional ao screening: No deficits noted. Tuberculosis screening: No symptoms or risk factors identified. Fall Risk None identified. Assessment: 02:37 General: Appears in no apparent distress. comfortable, Behavior is calm, cooperative, ao appropriate for age. Pain: Denies pain. Neuro: Level of Consciousness is awake, alert, obeys commands, Oriented to person, place, time, situation, Appropriate for age Moves all extremities. Full function Speech is normal, Facial symmetry appears normal. Cardiovascular: Reports None Capillary refill < 3 seconds Patient's skin is warm and dry. Respiratory: Airway is patent Trachea midline Respiratory effort is even, unlabored, Respiratory pattern is regular, symmetrical. GI: Abdomen is non-distended, Reports lower abdominal pain, nausea, vomiting. : No signs and/or symptoms were reported regarding the genitourinary system. EENT: No signs and/or symptoms were reported regarding the EENT system. Derm: No signs and/or symptoms reported regarding the dermatologic system. Musculoskeletal: Circulation, motion, and sensation intact. Range of motion: intact in all extremities. 03:26 Reassessment: Patient appears in no apparent distress at this time. Patient is alert, ao oriented x 3, equal unlabored respirations, skin warm/dry/pink. Vital Signs: 02:08 BP 127 / 80; Pulse 66; Resp 16 S; Temp 98.5(O); Pulse Ox 100% on R/A; Weight 86.18 kg jd3 (R); Height 4 ft. 11 in. (149.86 cm) (R); Pain 0/10; 02:47 BP 115 / 80 Supine; Pulse 80; ao 02:48 BP 123 / 84 Sitting; Pulse 77 LA; ao 02:50 BP 109 / 75 Standing; Pulse 81 RA; ao 03:26 BP 97 / 59; Pulse 78; Resp 16; Pulse Ox 100% on R/A; ao 03:58 BP 104 / 68; Pulse 58; Resp 16; Temp 98.5; Pulse Ox 99% on R/A; ak1 02:08 Body Mass Index 38.37 (86.18 kg, 149.86 cm) jd3 ED Course: 01:59 Patient arrived in ED. am2 02:03 Lauri López PA is PHCP. cp 02:03 Lauri Doyle MD is Attending Physician. cp 02:04 Tawanda Nathan, JEFFERY is Primary Nurse. ao 02:07 Triage completed. jd3 02:10 Arm band placed on. jd3 02:40 Patient has correct armband on for positive identification. Pulse ox on. NIBP on. ao 02:44 Inserted saline lock: 20 gauge in right antecubital area, using aseptic technique. oe Blood collected. 03:59 No provider procedures requiring assistance completed. ak1 04:06 IV discontinued, intact, bleeding controlled, No redness/swelling at site. Pressure ak1 dressing applied. Administered Medications: 02:35 Drug: Pepcid 20 mg Route: IVP; Site: right antecubital; ao 04:05 Follow up: Response: No adverse reaction ak1 02:35 Drug: NS 0.9% 1000 ml Route: IV; Rate: 1 bolus; Site: right antecubital; ao 04:05 Follow up: IV Status: Completed infusion; IV Intake: 1000ml ak1 02:36 Drug: Reglan 10 mg Route: IVP; Site: right antecubital; ao 04:05 Follow up: Response: No adverse reaction ak1 Intake: 04:05 IV: 1000ml; Total: 1000ml. ak1 Outcome: 03:52 Discharge ordered by MD. cp 04:05 Discharged to home ambulatory, with family. ak1 04:05 Condition: good 04:05 Discharge instructions given to patient, family, Instructed on discharge instructions, follow up and referral plans. no drinking with medication, no driving heavy equipment, medication usage, Demonstrated understanding of instructions, follow-up care, medications, Prescriptions given X 2. 04:08 Patient left the ED. jd3 Signatures: Ronna Hassan RN RN ak1 Lauri López PA PA cp Ortiz, Alex, RN RN Arvind Alicea Amanda am2 Davies, Jonathon, RN RN jd3
[2018-10-07 09:27] VITALS: TEMP 98.5
[2018-10-07 09:35] VITALS: BP 104/68; O2SAT 99
== END 2018-10-07 04:08 | disposition home or self-care (01) ==
LOC: ER 01:56
DX: R11.2 Nausea with vomiting, unspecified (principal); R42 Dizziness and giddiness; R19.7 Diarrhea, unspecified; R51 Headache; Z88.0 Allergy status to penicillin
CPT/HCPCS: 36415; 80048; 80076; 83690; 85025; 96361; 96374; 96375; 99284; J2765; J7030

== ENCOUNTER 2019-06-12 23:21 | Emergency (ER) | payer SELFPAY ==
--- NOTE | 2019-06-13 00:03 | ER ---
Nurse's Notes [facility] Name: Mckenzie Ornelas Age: 24 yrs Sex: Female : 1995 Arrival Date: 06/12/2019 Time: 23:23 Bed 13 [facility] MD: Diagnosis: Influenza due to other identified influenza virus-B Presentation: 06/12 23:31 Presenting complaint: Patient states: "I think I have the flu. I have a sore back, jd3 vomiting, running nose and a cough.". Transition of care: patient was not received from another setting of care. Onset of symptoms was June 10, 2019. Risk Assessment: Do you want to hurt yourself or someone else? Patient reports no desire to harm self or others. Initial Sepsis Screen: Does the patient meet any 2 criteria? HR > 90 bpm. No. Patient's initial sepsis screen is negative. Does the patient have a suspected source of infection? No. Patient's initial sepsis screen is negative. Care prior to arrival: Medication(s) given: Tylenol and DayQuil taken at 2100. 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 - Social history:: Smoking status: Patient/guardian denies using tobacco. - Ebola Screening: : Patient negative for fever greater than or equal to 101.5 degrees Fahrenheit, and additional compatible Ebola Virus Disease symptoms. Screenin:36 Abuse screen: Denies threats or abuse. Nutritional screening: No deficits noted. jd3 Tuberculosis screening: No symptoms or risk factors identified. Fall Risk Ambulatory Aid- None/Bed Rest/Nurse Assist (0 pts). Gait- Normal/Bed Rest/Wheelchair (0 pts) Mental Status- Oriented to own ability (0 pts). Total Adames Fall Scale indicates No Risk (0-24 pts). Assessment: 23:34 General: Appears in no apparent distress. uncomfortable, Behavior is calm, cooperative, jd3 appropriate for age. Pain: Complains of pain in head, back and abdomen Quality of pain is described as aching. Neuro: Level of Consciousness is awake, alert, obeys commands, Oriented to person, place, time, situation. Cardiovascular: Denies chest pain, Capillary refill < 3 seconds Patient's skin is warm and dry. Respiratory: Reports cough that is persistent Airway is patent Respiratory effort is even, unlabored, Respiratory pattern is regular, symmetrical, Breath sounds with wheezes bilaterally. Denies shortness of breath. GI: Abdomen is round non-distended, Abd is soft and non tender X 4 quads. Reports nausea, vomiting. : No signs and/or symptoms were reported regarding the genitourinary system. EENT: No signs and/or symptoms were reported regarding the EENT system. Derm: Skin is intact, Skin is dry, Skin is normal, Skin temperature is warm. Musculoskeletal: Circulation, motion, and sensation intact. Range of motion: intact in all extremities. 06/13 00:21 Reassessment: Patient appears in no apparent distress at this time. Patient and/or jd3 family updated on plan of care and expected duration. Pain level reassessed. Patient is alert, oriented x 3, equal unlabored respirations, skin warm/dry/pink. reported understanding of discharge instructions. even and steady gait upon discharge. Vital Signs: 06/12 23:33 BP 120 / 75; Pulse 125; Resp 20 S; Temp 100.7(O); Pulse Ox 98% on R/A; Weight 81.65 kg jd3 (R); Height 4 ft. 11 in. (149.86 cm) (R); Pain 6/10; 06/13 00:24 Pulse 120; Resp 19 S; Pulse Ox 100% on R/A; jd3 06/12 23:33 Body Mass Index 36.36 (81.65 kg, 149.86 cm) jd3 ED Course: 06/12 23:23 Patient arrived in ED. cl3 23:24 [facility]C [facility]. snw 23:24 Cyrus Hubbard MD is Attending Physician. snw 23:30 Singh Castro RN is Primary Nurse. jd3 23:32 Triage completed. jd3 23:33 Arm band placed on. jd3 23:36 Patient has correct armband on for positive identification. Bed in low position. Call jd3 light in reach. Side rails up X 1. Adult w/ patient. 23:40 Flu and/or RSV swab sent to lab. Strep swab sent to lab. lt1 23:41 Strep Sent. lt1 23:41 Flu Sent. lt1 06/13 00:23 No provider procedures requiring assistance completed. Patient did not have IV access jd3 during this emergency room visit. Administered Medications: 00:15 Drug: Phenergan 25 mg Route: PO; jd3 00:24 Follow up: Response: Medication administered at discharge. jd3 00:15 Drug: Motrin 400 mg Route: PO; jd3 00:24 Follow up: Response: Medication administered at discharge. jd3 00:15 Drug: Tamiflu 75 mg Route: PO; jd3 00:25 Follow up: Response: Medication administered at discharge. jd3 Outcome: 00:02 Discharge ordered by . snw 00:23 Discharged to home ambulatory, with family. jd3 00:23 Condition: stable 00:23 Discharge instructions given to patient, family, Instructed on discharge instructions, follow up and referral plans. medication usage, Demonstrated understanding of instructions, follow-up care, medications, Prescriptions given X 2. 00:25 Patient left the ED. jd3 Signatures: Stella Gutierrez, FUNDS DEVELOPMENT DIRECTOR-C FUNDS DEVELOPMENT DIRECTOR-Singh Riley, RN RN jRosalinda Garcia lt1 Harris Mann cl3
--- NOTE | 2019-06-13 00:03 | EDPHYS ---
Physician Documentation [facility] Name: Mckenzie Ornelas Age: 24 yrs Sex: Female : 1995 Arrival Date: 06/12/2019 Time: 23:23 Bed 13 Private MD: ED Physician Cyrus Hubbard HPI: 06/13 00:14 This 24 yrs old Female presents to ER via Ambulatory with complaints of Flu snw Symptoms. 00:14 s/s started yesterday with congestion, fatigue, fever. Onset: The symptoms/episode snw began/occurred suddenly, 2 day(s) ago. Severity of symptoms: At their worst the symptoms were moderate severe in the emergency department the symptoms are unchanged. The patient has not experienced similar symptoms in the past. It is unknown whether or not the patient has recently seen a physician. 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 - Social history:: Smoking status: Patient/guardian denies using tobacco. - Ebola Screening: : Patient negative for fever greater than or equal to 101.5 degrees Fahrenheit, and additional compatible Ebola Virus Disease symptoms. ROS: 06/13 00:14 Eyes: Negative for injury, pain, redness, and discharge, ENT: Negative for injury, snw pain, and discharge, Neck: Negative for injury, pain, and swelling, Cardiovascular: Negative for chest pain, palpitations, and edema, Respiratory: Negative for shortness of breath, cough, wheezing, and pleuritic chest pain, Back: Negative for injury and pain, : Negative for injury, bleeding, discharge, and swelling, MS/Extremity: Negative for injury and deformity, Skin: Negative for injury, rash, and discoloration, Neuro: Negative for headache, weakness, numbness, tingling, and seizure. Constitutional: Positive for body aches, chills, fatigue, fever, malaise, poor PO intake. Abdomen/GI: Positive for nausea and vomiting. Exam: 00:13 Head/Face: Normocephalic, atraumatic. Eyes: Pupils equal round and reactive to light, snw extra-ocular motions intact. Lids and lashes normal. Conjunctiva and sclera are non-icteric and not injected. Cornea within normal limits. Periorbital areas with no swelling, redness, or edema. ENT: Nares patent. No nasal discharge, no septal abnormalities noted. Tympanic membranes are normal and external auditory canals are clear. Oropharynx with no redness, swelling, or masses, exudates, or evidence of obstruction, uvula midline. Mucous membranes moist. Neck: Trachea midline, no thyromegaly or masses palpated, and no cervical lymphadenopathy. Supple, full range of motion without nuchal rigidity, or vertebral point tenderness. No Meningismus. Chest/axilla: Normal chest wall appearance and motion. Nontender with no deformity. No lesions are appreciated. 00:13 Respiratory: Lungs have equal breath sounds bilaterally, clear to auscultation and percussion. No rales, rhonchi or wheezes noted. No increased work of breathing, no retractions or nasal flaring. Abdomen/GI: Soft, non-tender, with normal bowel sounds. No distension or tympany. No guarding or rebound. No evidence of tenderness throughout. Back: No spinal tenderness. No costovertebral tenderness. Full range of motion. MS/ Extremity: Pulses equal, no cyanosis. Neurovascular intact. Full, normal range of motion. Neuro: Awake and alert, GCS 15, oriented to person, place, time, and situation. Cranial nerves II-XII grossly intact. Motor strength 5/5 in all extremities. Sensory grossly intact. Cerebellar exam normal. Normal gait. 00:13 Constitutional: The patient appears alert, febrile, listless. 00:13 Cardiovascular: Rate: tachycardic, Rhythm: regular, Pulses: no pulse deficits are appreciated. 00:13 Skin: Appearance: normal except for affected area, Temperature: hot, Moisture: dry. Vital Signs: 06/12 23:33 BP 120 / 75; Pulse 125; Resp 20 S; Temp 100.7(O); Pulse Ox 98% on R/A; Weight 81.65 kg jd3 (R); Height 4 ft. 11 in. (149.86 cm) (R); Pain 6/10; 06/13 00:24 Pulse 120; Resp 19 S; Pulse Ox 100% on R/A; jd3 06/12 23:33 Body Mass Index 36.36 (81.65 kg, 149.86 cm) jd3 MDM: 06/12 23:35 Patient medically screened. snw 06/13 00:10 Data reviewed: vital signs, nurses notes. Data interpreted: Pulse oximetry: on room air snw is 98 %. Interpretation: normal. Counseling: I had a detailed discussion with the patient and/or guardian regarding: the historical points, exam findings, and any diagnostic results supporting the discharge/admit diagnosis, lab results, the need for outpatient follow up, to return to the emergency department if symptoms worsen or persist or if there are any questions or concerns that arise at home. Special discussion: Based on the history and exam findings, there is no indication for further emergent testing or inpatient evaluation. I discussed with the patient/guardian the need to see the primary care provider for further evaluation of the symptoms. 06/12 23:24 Order name: Flu; Complete Time: 23:59 snw 06/12 23:24 Order name: Strep; Complete Time: 00:09 snw 06/13 00:00 Order name: Throat Culture EDMS Administered Medications: 00:15 Drug: Phenergan 25 mg Route: PO; jd3 00:24 Follow up: Response: Medication administered at discharge. jd3 00:15 Drug: Motrin 400 mg Route: PO; jd3 00:24 Follow up: Response: Medication administered at discharge. jd3 00:15 Drug: Tamiflu 75 mg Route: PO; jd3 00:25 Follow up: Response: Medication administered at discharge. jd3 Disposition: 01:19 Co-signature as Attending Physician, Cyrus Hubbard MD I agree with the assessment and kdr plan of care. Disposition: 06/13/19 00:02 Discharged to Home. Impression: Influenza due to other identified influenza virus - B. - Condition is Stable. - Discharge Instructions: Fever, Adult, Influenza, Adult. - Prescriptions for Tamiflu 75 mg Oral Capsule - take 1 capsule by ORAL route every 12 hours for 5 days; 10 capsule. promethazine 25 mg Oral Tablet - take 1 tablet by ORAL route every 6 hours As needed; 20 tablet. - Work release form, Medication Reconciliation Form, Thank You Letter, Antibiotic Education, Prescription Opioid Use form. - Follow up: Emergency Department; When: As needed; Reason: Worsening of condition. Follow up: Private Physician; When: As needed; Reason: Worsening of condition. Signatures: Dispatcher [employer] Cyrus Lane MD MD [facility] Stella Gutierrez, CALL OUT CLERK-C CALL OUT CLERK-Csnw Singh Castro RN RN jd3 Corrections: (The following items were deleted from the chart) 00:25 00:02 06/13/2019 00:02 Discharged to Home. Impression: Influenza due to other jd3 identified influenza virus - B. Condition is Stable. Forms are Medication Reconciliation Form, Thank You Letter, Antibiotic Education, Prescription Opioid Use. Follow up: Emergency Department; When: As needed; Reason: Worsening of condition. Follow up: Private Physician; When: As needed; Reason: Worsening of condition. snw
[2019-06-13] MEDS ORDERED: IBUPROFEN 400 MG TAB ONE (00:13)
[2019-06-13] MEDS ORDERED: PROMETHAZINE 25 MG TABLET ONE (00:13)
[2019-06-13] MEDS ORDERED: OSELTAMIVIR 75 MG CAP ONE (00:14)
[2019-06-13 00:47] VITALS: BP 120/75; TEMP 100.7
[2019-06-13 00:48] VITALS: O2SAT 100
== END 2019-06-13 00:25 | disposition home or self-care (01) ==
LOC: ER 23:21
DX: J10.1 Influenza due to other identified influenza virus with other respiratory manifestations (principal); Z88.0 Allergy status to penicillin
CPT/HCPCS: 87070; 87081; 87804; 99283; Q0169

== ENCOUNTER 2020-07-07 02:27 | Emergency (ER) | payer SELFPAY ==
[2020-07-07] MEDS ORDERED: NA CHLORIDE 0.9% 1,000 ML ONE (03:42)
[2020-07-07] MEDS ORDERED: ONDANSETRON 4 MG/2 ML VIAL ONE (03:42)
[2020-07-07] MEDS ORDERED: FAMOTIDINE 20 MG/2 ML VIAL IV ONE (03:42)
[2020-07-07] MEDS ORDERED: MORPHINE 2 MG/ML SYR ONE (03:42)
[2020-07-07 04:07] LABS: Absolute Lymphocytes (CBC) 3.1 K/uL (0.7-4.9); Basophils % 0.6 % (0-1.3); Hematocrit 35.5 % (36.0-45.0); Lymphocytes % 38.1 % (15.3-44.8); MPV 8.9 fL (7.6-11.3)
[2020-07-07 04:14] LABS: Albumin 3.9 g/dL (3.4-5.0); Bilirubin Direct 0.1 mg/dL (0-0.2); Bilirubin Total 0.6 mg/dL (0.2-1.0); Potassium 3.5 mmol/L (3.5-5.1); Protein, Total 8.3 g/dL (6.4-8.2)
[2020-07-07 05:41] LABS: Urine Blood TRACE (NEG); Urine Glucose NEGATIVE (NEG); Urine Protein 2+ (NEG); Urine Specific Gravity >1.030 (1.005-1.030); Urine pH 5.5 (5.0-7.0)
[2020-07-07 05:41] LABS: Urine Specific Gravity >1.030 (1.005-1.030)
--- NOTE | 2020-07-07 06:01 | ER ---
Nurse's Notes [facility] Name: Mckenzie Ornelas Age: 25 yrs Sex: Female : 1995 Arrival Date: 07/07/2020 Time: 02:28 Bed 20 Private MD: Diagnosis: Nonspecific mesenteric lymphadenitis;Gastroenteritis Presentation: 07/07 02:44 Chief complaint: Patient states: N/V/D since 4 days ago; Denies fever; Reports son is lp1 now presenting with similar symptoms. Coronavirus screen: Client denies travel out of the [place] in the last 14 days. diarrhea, headache, vomiting. Ebola Screen: No symptoms or risks identified at this time. Initial Sepsis Screen: Does the patient meet any 2 criteria? No. Patient's initial sepsis screen is negative. Does the patient have a suspected source of infection? No. Patient's initial sepsis screen is negative. Risk Assessment: Do you want to hurt yourself or someone else? Patient reports no desire to harm self or others. Onset of symptoms was July 02, 2020. 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 - Social history:: Smoking status: Patient denies any tobacco usage or history of. Screenin:49 Abuse screen: Denies threats or abuse. Denies injuries from another. Nutritional lp1 screening: No deficits noted. Tuberculosis screening: No symptoms or risk factors identified. Fall Risk None identified. Assessment: 02:53 General: Appears in no apparent distress. Behavior is calm, cooperative, appropriate fu for age, Reports feeling ill for 2-3 days, Denies fever. Pain: Complains of pain in headache Pain does not radiate. Pain currently is 3 out of 10 on a pain scale. Quality of pain is described as aching. Neuro: Level of Consciousness is awake, alert, obeys commands, Oriented to person, place, time, situation, Moves all extremities. Gait is steady, Speech is normal, Facial symmetry appears normal. Cardiovascular: Denies chest pain, palpitations. Respiratory: Denies cough, shortness of breath. GI: Abdomen is round Reports lower abdominal pain, diarrhea, nausea, vomiting. EENT: No signs and/or symptoms were reported regarding the EENT system. Derm: No signs and/or symptoms reported regarding the dermatologic system. Musculoskeletal: No signs and/or symptoms reported regarding the musculoskeletal system. 04:19 Reassessment: Patient appears in no apparent distress at this time. Patient and/or fu family updated on plan of care and expected duration. Pain level reassessed. Patient is alert, oriented x 3, equal unlabored respirations, skin warm/dry/pink. patient resting in bed, IVF ongoing. 05:34 Reassessment: Patient and/or family updated on plan of care and expected duration. Pain ea level reassessed. Patient is alert, oriented x 3, equal unlabored respirations, skin warm/dry/pink. awaiting on CT results. 06:14 Reassessment: Patient and/or family updated on plan of care and expected duration. Pain ea level reassessed. Patient is alert, oriented x 3, equal unlabored respirations, skin warm/dry/pink. Discharge instruction given to patient, verbalized the understanding of instruction. Pt left ED ambulatory tolerating well. Vital Signs: 02:44 BP 144 / 98; Pulse 75; Resp 16; Temp 98.3(O); Pulse Ox 99% on R/A; Weight 86.18 kg (R); lp1 Height 4 ft. 11 in. (149.86 cm); Pain 0/10; 02:45 BP 127 / 87; Pulse 68; Resp 18; Temp 98.1(O); Pulse Ox 99% on R/A; Pain 3/10; fu 03:16 BP 117 / 81; Pulse 72; Resp 18; Pulse Ox 98% on R/A; Pain 0/10; fu 04:00 BP 116 / 85; Pulse 64; Resp 16; Pulse Ox 100% on R/A; fu 05:58 BP 124 / 84; Pulse 60; Resp 18; Temp 98.0; Pulse Ox 98% ; ea 02:44 Body Mass Index 38.37 (86.18 kg, 149.86 cm) lp1 ED Course: 02:28 Patient arrived in ED. am2 02:38 Jose E Youngblood MD is Attending Physician. mh7 02:38 Bandar Washburn, RN is Primary Nurse. fu 02:48 Triage completed. lp1 02:48 Arm band placed on. lp1 02:56 Patient has correct armband on for positive identification. Bed in low position. Call fu light in reach. Pulse ox on. NIBP on. 03:40 Inserted saline lock: 20 gauge in right antecubital area, using aseptic technique. ea Blood collected. 04:22 Warm blanket given. fu 06:03 Basic Metabolic Panel Sent. fu 06:03 CBC with Diff Sent. fu 06:03 Hepatic Function Sent. fu 06:04 Lipase Sent. fu 06:05 No provider procedures requiring assistance completed. fu 06:06 IV discontinued, bleeding controlled, Pressure dressing applied. fu 07:06 COVID-19 Sent. fu 12:46 CT Abd/Pelvis - IV Contrast Only In Process Unspecified. EDMS Administered Medications: 03:44 Drug: Pepcid 20 mg Route: IVP; Site: right antecubital; ea 05:06 Follow up: Response: No adverse reaction fu 03:45 Drug: NS 0.9% 1000 ml Route: IV; Rate: 1000 ml; Site: right antecubital; ea 05:05 Follow up: Response: No adverse reaction; IV Intake: 1000ml fu 06:17 Follow up: Response: No adverse reaction; IV Status: Completed infusion; IV Intake: ea 1000ml 03:45 Drug: morphine 2 mg Route: IVP; Site: right antecubital; ea 05:07 Follow up: Response: Pain is decreased fu 03:45 Drug: Zofran (Ondansetron) 4 mg Route: IVP; Site: right antecubital; ea 05:06 Follow up: Response: Nausea is decreased fu Intake: 05:05 IV: 1000ml; Total: 1000ml. fu 06:17 IV: 1000ml; Total: 2000ml. ea Outcome: 06:00 Discharge ordered by . [facility] 06:14 Discharged to home ambulatory. ea 06:14 Condition: stable 06:14 Discharge instructions given to patient, Instructed on discharge instructions, follow up and referral plans. medication usage, Demonstrated understanding of instructions, follow-up care, medications, Prescriptions given X 3. 06:17 Patient left the ED. ea Addendum: 07/10/2020 07:23 Addendum: COVID-19 Result: Negative result given to RN to notify pt. Left voice mail. a a5 12:33 Addendum: COVID-19 Result: Negative result given to RN to notify pt. Notified pt of a a5 negative COVID 19 swab results. Pt advised that even with a negative test result they should remain in isolation until symptom free for 3 days without medication. Pt also advised to return to the ED for worsening symptoms. Signatures: Dispatcher [employer] Karen Mina RN RN aa5 Anna Garrett RN RN lp1 Lupe Lucero am2 Olga Saleh RN RN ea Umadhay, Felix RN Jose E Leach MD MD 7
--- NOTE | 2020-07-07 06:01 | EDPHYS ---
Physician Documentation [facility] Name: Mckenzie Ornelas Age: 25 yrs Sex: Female : 1995 Arrival Date: 07/07/2020 Time: 02:28 Bed 20 Private MD: ED Physician Jose E Youngblood HPI: 07/07 03:24 This 25 yrs old Female presents to ER via Ambulatory with complaints of mh7 Nausea/Vomiting/Diarrhea. 03:24 The patient presents to the emergency department with nausea, that is moderate, mh7 vomiting, that is intermittent, diarrhea, that is intermittent, abdominal pain, of the epigastric area, right upper quadrant and left upper quadrant, described as intermittent, vague,\E\ waxing and waning, and does not radiate. Onset: The symptoms/episode began/occurred 4 day(s) ago. Possible causes: unknown. The symptoms are aggravated by nothing. The symptoms are alleviated by nothing. Associated signs and symptoms: Pertinent positives: abdominal pain, diarrhea, nausea, vomiting, Pertinent negatives: anorexia, belching, constipation, dysuria, fever, flatulence, GI bleeding, hematuria, vaginal discharge. Severity of symptoms: At their worst the symptoms were moderate 3 day(s) ago, in the emergency department the symptoms are unchanged. 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 - Social history:: Smoking status: Patient denies any tobacco usage or history of. ROS: 03:24 Constitutional: Negative for fever, chills, and weight loss, Eyes: Negative for injury, mh7 pain, redness, and discharge, ENT: Negative for injury, pain, and discharge, Neck: Negative for injury, pain, and swelling, Cardiovascular: Negative for chest pain, palpitations, and edema, Respiratory: Negative for shortness of breath, cough, wheezing, and pleuritic chest pain, Back: Negative for injury and pain, : Negative for injury, bleeding, discharge, and swelling, MS/Extremity: Negative for injury and deformity, Skin: Negative for injury, rash, and discoloration, Neuro: Negative for headache, weakness, numbness, tingling, and seizure, Psych: Negative for depression, anxiety, suicide ideation, homicidal ideation, and hallucinations, Allergy/Immunology: Negative for hives, rash, and allergies, Endocrine: Negative for neck swelling, polydipsia, polyuria, polyphagia, and marked weight changes, Hematologic/Lymphatic: Negative for swollen nodes, abnormal bleeding, and unusual bruising. Exam: 03:24 Constitutional: This is a well developed, well nourished patient who is awake, alert, mh7 and in no acute distress. Head/Face: Normocephalic, atraumatic. Eyes: Pupils equal round and reactive to light, extra-ocular motions intact. Lids and lashes normal. Conjunctiva and sclera are non-icteric and not injected. Cornea within normal limits. Periorbital areas with no swelling, redness, or edema. Neck: Trachea midline, no thyromegaly or masses palpated, and no cervical lymphadenopathy. Supple, full range of motion without nuchal rigidity, or vertebral point tenderness. No Meningismus. Chest/axilla: Normal chest wall appearance and motion. Nontender with no deformity. No lesions are appreciated. Cardiovascular: Regular rate and rhythm with a normal S1 and S2. No gallops, murmurs, or rubs. Normal PMI, no JVD. No pulse deficits. Respiratory: Lungs have equal breath sounds bilaterally, clear to auscultation and percussion. No rales, rhonchi or wheezes noted. No increased work of breathing, no retractions or nasal flaring. 03:24 Back: No spinal tenderness. No costovertebral tenderness. Full range of motion. Skin: Warm, dry with normal turgor. Normal color with no rashes, no lesions, and no evidence of cellulitis. MS/ Extremity: Pulses equal, no cyanosis. Neurovascular intact. Full, normal range of motion. Neuro: Awake and alert, GCS 15, oriented to person, place, time, and situation. Cranial nerves II-XII grossly intact. Motor strength 5/5 in all extremities. Sensory grossly intact. Cerebellar exam normal. Normal gait. Psych: Awake, alert, with orientation to person, place and time. Behavior, mood, and affect are within normal limits. 03:24 Abdomen/GI: Inspection: obese Bowel sounds: normal, in all quadrants, Palpation: moderate abdominal tenderness, in the epigastric area, right upper quadrant and left upper quadrant, Rectal exam: the exam is deferred, because of patient request, Indicators: McBurney's point is not tender, Oconnell's sign is negative, Rovsing's sign is negative, Obturator sign is negative, Psoas sign is negative, Liver: no appreciated palpable abnormalities, Hernia: not appreciated. Vital Signs: 02:44 BP 144 / 98; Pulse 75; Resp 16; Temp 98.3(O); Pulse Ox 99% on R/A; Weight 86.18 kg (R); lp1 Height 4 ft. 11 in. (149.86 cm); Pain 0/10; 02:45 BP 127 / 87; Pulse 68; Resp 18; Temp 98.1(O); Pulse Ox 99% on R/A; Pain 3/10; fu 03:16 BP 117 / 81; Pulse 72; Resp 18; Pulse Ox 98% on R/A; Pain 0/10; fu 04:00 BP 116 / 85; Pulse 64; Resp 16; Pulse Ox 100% on R/A; fu 05:58 BP 124 / 84; Pulse 60; Resp 18; Temp 98.0; Pulse Ox 98% ; ea 02:44 Body Mass Index 38.37 (86.18 kg, 149.86 cm) lp1 MDM: 05:57 Differential diagnosis: Nonspecific abd pain, gastritis, pancreatitis, viral mh7 gastroenteritis, gastroenteritis. Data reviewed: vital signs, nurses notes, old medical records, lab test result(s), CBC, electrolytes, urinalysis, radiologic studies, CT scan. Data interpreted: Pulse oximetry: on room air is 100 %. Interpretation: normal. Counseling: I had a detailed discussion with the patient and/or guardian regarding: the historical points, exam findings, and any diagnostic results supporting the discharge/admit diagnosis, lab results, radiology results, the need for outpatient follow up, to return to the emergency department if symptoms worsen or persist or if there are any questions or concerns that arise at home. Response to treatment: the patient's symptoms have resolved after treatment, the patient's blood pressure is in an acceptable range, mental status has returned to baseline, the patient no longer shows bradycardia, the patient is not short of breath, the patient is not tachycardic, the patient's pain is gone, the patient's temperature has normalized, the patient is now symptom free, patient is well hydrated. 06:00 Patient medically screened. [facility] 07/07 03:22 Order name: Basic Metabolic Panel [facility] 07/07 03:22 Order name: CBC with Diff [facility] 07/07 03:22 Order name: Hepatic Function [facility] 07/07 03:22 Order name: Lipase [facility] 07/07 03:41 Order name: Urine Dipstick--Ancillary (enter results) [facility] 07/07 03:41 Order name: Urine --Ancillary (enter results) [facility] 07/07 04:05 Order name: CT Abd/Pelvis - IV Contrast Only [facility] 07/07 04:14 Order name: Basic Metabolic Panel; Complete Time: 05:03 [facility] 07/07 04:14 Order name: Liver (Hepatic) Function; Complete Time: 05:03 [facility] 07/07 04:14 Order name: Lipase; Complete Time: 05:03 [facility] 07/07 04:36 Order name: CBC with Automated Diff; Complete Time: 05:03 [facility] 07/07 05:41 Order name: Urine --Ancillary; Complete Time: 05:42 [facility] 07/07 05:41 Order name: Urine Dipstick-Ancillary; Complete Time: 05:42 [facility] 07/07 06:10 Order name: COVID-19 07/07 03:22 Order name: IV Saline Lock; Complete Time: 03:47 [facility] 07/07 03:22 Order name: Labs collected and sent; Complete Time: 03:47 [facility] 07/07 03:22 Order name: Urine Dipstick-Ancillary (obtain specimen); Complete Time: 03:40 [facility] Administered Medications: 03:44 Drug: Pepcid 20 mg Route: IVP; Site: right antecubital; ea 05:06 Follow up: Response: No adverse reaction fu 03:45 Drug: NS 0.9% 1000 ml Route: IV; Rate: 1000 ml; Site: right antecubital; ea 05:05 Follow up: Response: No adverse reaction; IV Intake: 1000ml fu 06:17 Follow up: Response: No adverse reaction; IV Status: Completed infusion; IV Intake: ea 1000ml 03:45 Drug: morphine 2 mg Route: IVP; Site: right antecubital; ea 05:07 Follow up: Response: Pain is decreased fu 03:45 Drug: Zofran (Ondansetron) 4 mg Route: IVP; Site: right antecubital; ea 05:06 Follow up: Response: Nausea is decreased fu Disposition: 07/07/20 06:00 Discharged to Home. Impression: Nonspecific mesenteric lymphadenitis, Gastroenteritis. - Condition is Stable. - Discharge Instructions: Mesenteric Adenitis, Pediatric, Viral Gastroenteritis, Adult, [id number]. - Prescriptions for Zofran ODT 4 mg Oral tablet,disintegrating - place 1 tablet by TRANSLINGUAL route every 8 hours As needed; 10 tablet. Bentyl 20 mg Oral Tablet - take 1 tablet by ORAL route every 6 hours As needed; 20 tablet. Pepcid 20 mg Oral Tablet - take 1 tablet by ORAL route every 12 hours for 5 days; 10 tablet. - Work release form, Medication Reconciliation Form, Thank You Letter, Antibiotic Education, Prescription Opioid Use form. - Follow up: Private Physician; When: 1 - 2 days; Reason: Worsening of condition, Recheck today's complaints, Continuance of care, Re-evaluation by your physician. - Problem is new. - Symptoms have improved. Signatures: Dispatcher [employer] EDMS Anna Garrett RN RN 1 Olga Saleh RN RN ea Holmes, Maurice, MD MD [facility] Bandar Washburn RN Corrections: (The following items were deleted from the chart) 06:17 06:00 07/07/2020 06:00 Discharged to Home. Impression: Nonspecific mesenteric ea lymphadenitis; Gastroenteritis. Condition is Stable. Forms are Medication Reconciliation Form, Thank You Letter, Antibiotic Education, Prescription Opioid Use. Follow up: Private Physician; When: 1 - 2 days; Reason: Worsening of condition, Recheck today's complaints, Continuance of care, Re-evaluation by your physician. Problem is new. Symptoms have improved. mh7
[2020-07-07 06:27] VITALS: BP 124/84; TEMP 98; O2SAT 98
--- NOTE | 2020-07-07 15:07 | RAD REPORT ---
EXAM DESCRIPTION: CT Abdomen and Pelvis With Intravenous Contrast CLINICAL HISTORY: Abd pain;Nausea / vomiting TECHNIQUE: Axial computed tomography images of the abdomen and pelvis with intravenous contrast. S agittal and coronal reformatted images were created and reviewed. This CT exam was performed using one or more of the following dose reduction techniques: automated exposure control, adjustment of t he mA and/or kV according to patient size, and/or use of iterative reconstruction technique. COMPARISON: No relevant prior studies available. FINDINGS: Limitations: None. Lung bases: No abnormality noted. Pleural space: No abnormality noted. Heart: No abnormality noted. Mediastinum: No abnormality noted. ABDOMEN: Liver: Fatty liver. Gallbladder and bile ducts: Cholecystectomy. Pancreas: Homogeneous enhancement. No mass, inflammation or ductal dilation. Spleen: No abnormality noted. Adrenals: Visualized portions appear normal. Kidneys and ureters: Small cyst right kidney. Left kidney appears normal. No stone or hydrone phrosis. Stomach and bowel: No distension or mucosal thickening. No inflammation noted. PELVIS: Appendix: No findings to suggest acute appendicitis. Bladder: No filling defects to suggest mass or large stone. No inflammation. Reproductive: No abnormalities noted. ABDOMEN and PELVIS: Intraperitoneal space: No free air. No significant fluid collection. Bones/joints: No acute change noted. Soft tissues: No abnormality noted. Vasculature: No abdominal aortic aneurysm. Lymph nodes: There are increased numbers of normal sized lymph nodes in one enlarged lymph node i n the right lower quadrant mesentery measuring short axis dimension 1.2 cm. Tubes, lines and devices: Intrauterine contraceptive device in good position. IMPRESSION: 1. Prominent and minimally enlarged mesenteric lymph nodes which may reflect mesenteri c adenitis. 2. No inflammatory process or intestinal obstruction. Electronically signed by: Lachelle Hale MD 07/07/2020 5:13 AM KEY MAKER Due to temporary technical issues with the PACS/Fluency reporting system, reports are being signed by the in house radiologists without review as a courtesy to insure prompt reporting. The interpreting radiologist is fully responsible for the content of the report.
== END 2020-07-07 06:17 | disposition home or self-care (01) ==
LOC: ER 02:27
DX: K52.9 Noninfective gastroenteritis and colitis, unspecified (principal); I88.0 Nonspecific mesenteric lymphadenitis; E66.9 Obesity, unspecified; Z68.38 Body mass index [BMI] 38.0-38.9, adult; Z20.822 Contact with and (suspected) exposure to COVID-19
CPT/HCPCS: 36415; 74177; 80048; 80076; 81003; 81025; 83690; 85025; 96361; 96374; 96375; 99284; J2270; J2405; J7030; Q9967; U0002

== ENCOUNTER 2021-02-25 16:00 | Emergency (ER) | payer SELFPAY ==
[2021-02-25 16:30] LABS: Urine Blood 3+ (Negative); Urine Glucose Negative (Negative); Urine Protein 3+ (Negative); Urine Specific Gravity 1.025 (1.005-1.030)
[2021-02-25] MEDS ORDERED: ACETAMINOPHEN 500 MG TAB ONE (16:56)
[2021-02-25] MEDS ORDERED: NA CHLORIDE 0.9% 1,000 ML ONE (16:56)
[2021-02-25 17:17] LABS: Absolute Lymphocytes (CBC) 0.8 K/uL (0.7-4.9); Basophils % 0.3 % (0-1.3); Hematocrit 36.2 % (36.0-45.0); Lymphocytes % 6.3 % (15.3-44.8); MPV 8.3 fL (7.6-11.3); RBC Red Blood Cell Count 3.98 M/uL (3.86-4.86); Urine Appearance CLOUDY (Clear); Urine Bilirubin NEGATIVE (Negative); Urine Blood 3+ (Negative); Urine Color DK YELLOW (Yellow); Urine Glucose TRACE (Negative); Urine Protein 2+ (Negative)
[2021-02-25 17:28] LABS: Urine RBC <5 /HPF (NONE SEEN)
[2021-02-25 17:29] LABS: Urine Bacteria 20-50 /HPF (<20)
[2021-02-25 17:31] LABS: Albumin 3.8 g/dL (3.4-5.0); Bilirubin Direct 0.2 mg/dL (0-0.2); Bilirubin Total 1.1 mg/dL (0.2-1.0); Potassium 3.9 mmol/L (3.5-5.1); Protein, Total 8.5 g/dL (6.4-8.2)
[2021-02-25 18:17] LABS: Blood Morphology Comment NOT SEEN (NOT SEEN); Platelet Estimate ADEQ; White Blood Cell Scan OK (OK)
[2021-02-25 18:32] LABS: Urine Specific Gravity/Preg 1.025 (1.005-1.030)
--- NOTE | 2021-02-25 19:05 | RAD REPORT ---
EXAM DESCRIPTION: CTAbdomen Pelvis W Contrast - 02/25/2021 6:55 pm CLINICAL HISTORY: Abdominal pain. lower abdomen pain COMPARISON: Abdomen Pelvis W Contrast dated 07/07/2020 TECHNIQUE: Biphasic CT imaging of the abdomen and pelvis was performed with 100 ml non-ionic IV cont rast. All CT scans are performed using dose optimization technique as appropriate and may include automated exposure control or mA/KV adjustment according to patient size. FINDINGS: The lung bases are clear. Cholecystectomy. The liver demonstrates diffuse fatty infiltration. The spleen, pancreas, adrenal glands and kidneys a re within normal limits. Small benign cysts are present in both kidneys. No bowel obstruction, free air, free fluid or abscess. The appendix is not identified as a discrete structure, however, no secondary findings of appendicitis are identified. No evidence of significan t lymphadenopathy. No suspicious bony findings. IUD is present in the uterus. IMPRESSION: No acute intra-abdominal or pelvic finding. Prominent fatty liver.
[2021-02-25] MEDS ORDERED: CEFTRIAXONE 1000 MG/VIAL ONE (20:42)
[2021-02-25] MEDS ORDERED: NA CHLORIDE 0.9% 0 ML ONE (20:42)
[2021-02-25] MEDS ORDERED: METRONIDAZOLE 500mg IVPB 500 MG/100 ML BAG IV ONE (20:42)
[2021-02-25] MEDS ORDERED: NA CHLORIDE 0.9% 50 ML ONE (20:43)
[2021-02-25] MEDS ORDERED: KETOROLAC 30 MG/ML INJ ONE (20:59)
--- NOTE | 2021-02-25 21:09 | RAD REPORT ---
EXAM DESCRIPTION: US - Transvaginal Study Probe - 02/25/2021 8:58 pm CLINICAL HISTORY: ABD PAIN Pelvic pain. COMPARISON: No comparisons FINDINGS: The uterus is normal in size, shape and echotexture. The uterus measures . IUD is appropriately located in the fundal endometrium. Both ovaries are normal in size, shape and echotexture. The right ovary measures 3.0 x 2.3 cm. The left ovary measures 3.2 x 2.2 cm. No ovarian or parovarian lesions. No adnexal masses. Normal Doppler blood flow was demonstrated to both ovaries. No significant pelvic ascites. IMPRESSION: IUD is appropriately located in the fundal endometrium.Otherwise, unremarkable study.
--- NOTE | 2021-02-25 21:40 | EDPHYS ---
Physician Documentation [facility] Name: Mckenzie Ornelas Age: 25 yrs Sex: Female : 1995 Arrival Date: 02/25/2021 Time: 16:04 Bed 12 Private MD: ED Physician Kvng Mejia HPI: 02/25 17:00 This 25 yrs old Female presents to ER via Ambulatory with complaints of cp Nausea, Fever. 17:00 The patient reports fever, with an emergency department temperature of 101.3 degrees cp Fahrenheit. Onset: The symptoms/episode began/occurred today. 17:00 The patient presents with abdominal pain in the lower abdomen. The symptoms radiate to cp lower back. 17:00 Associated signs and symptoms: Pertinent positives: fever, nausea, vaginal discharge, cp vaginal bleeding, Pertinent negatives: constipation, diarrhea, vomiting. The symptoms are described as achy. Severity of pain: in the emergency department the pain is unchanged despite home interventions. 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 - Social history:: Smoking status: Patient denies any tobacco usage or history of. ROS: 17:05 Constitutional: Positive for fever, Negative for body aches, poor PO intake. cp 17:05 Eyes: Negative for injury, pain, redness, and discharge. cp 17:05 ENT: Positive for sore throat, Negative for drainage from ear(s), ear pain, difficulty swallowing, difficulty handling secretions. 17:05 Cardiovascular: Negative for chest pain. 17:05 Respiratory: Negative for cough, shortness of breath, wheezing. 17:05 Abdomen/GI: Positive for abdominal pain, nausea, Negative for diarrhea, constipation. 17:05 Back: Positive for radiated pain, of the low back area. 17:05 : Positive for vaginal bleeding, vaginal discharge, Negative for urinary symptoms. 17:05 Skin: Negative for rash. 17:05 Neuro: Negative for altered mental status, dizziness, headache, weakness. 17:05 All other systems are negative. Exam: 17:10 Constitutional: The patient appears in no acute distress, alert, awake, non-toxic, well cp developed, well nourished, uncomfortable. 17:10 Head/Face: Normocephalic, atraumatic. cp 17:10 Eyes: Periorbital structures: appear normal, Conjunctiva: normal, no exudate, no injection, Sclera: no appreciated abnormality, Lids and lashes: appear normal, bilaterally. 17:10 ENT: External ear(s): are unremarkable, Ear canal(s): are normal, clear, TM's: dullness, bilaterally, Nose: is normal, Mouth: Lips: moist, Oral mucosa: moist, Posterior pharynx: Airway: no evidence of obstruction, patent, Tonsils: no enlargement, no exudate, swelling, is not appreciated, erythema, that is mild, exudate, is not appreciated. 17:10 Neck: ROM/movement: is normal, is supple, without pain, no range of motions limitations, no meningismus, Lymph nodes: no appreciated lymphadenopathy. 17:10 Chest/axilla: Inspection: normal, Palpation: is normal, no crepitus, no tenderness. 17:10 Cardiovascular: Rate: tachycardic, Rhythm: regular. 17:10 Respiratory: the patient does not display signs of respiratory distress, Respirations: normal, no use of accessory muscles, no retractions, labored breathing, is not present, Breath sounds: are clear throughout, no decreased breath sounds, no stridor, no wheezing. 17:10 Abdomen/GI: Inspection: abdomen appears normal, Bowel sounds: active, all quadrants, Palpation: soft, in all quadrants, moderate abdominal tenderness, in the right lower quadrant and left lower quadrant, rebound tenderness, is not appreciated, involuntary guarding, is not appreciated. 17:10 Back: pain, that is mild, of the low back area, ROM is normal. 17:10 Skin: cellulitis, is not appreciated, no rash present. 20:45 : Pelvic Exam: External exam: is normal, Speculum exam: mild bleeding, no cervicitis, cp os that is closed, IUD string noted, no tissue in cervix is seen, no tissue in vagina is seen, bimanual exam reveals cervical motion tenderness, uterine tenderness, right adnexal tenderness, left adnexal tenderness, discharge, bloody, the nurse was present for the exam, Sexual behavior: the patient is sexually active, and reports a single partner, method of control is IUD. Vital Signs: 16:13 BP 119 / 81; Pulse 116; Resp 19; Temp 101.3(O); Pulse Ox 100% ; Weight 88.45 kg; Height jl7 4 ft. 11 in. (149.86 cm); Pain 0/10; 16:40 BP 124 / 84; Pulse 111; Resp 20; Pulse Ox 100% on R/A; Pain 0/10; ld1 17:52 BP 128 / 79; Pulse 101; Resp 19; Pulse Ox 100% ; ld1 21:51 BP 130 / 80; Pulse 87; Resp 17; Temp 98.2; Pulse Ox 100% on R/A; ch4 16:13 Body Mass Index 39.38 (88.45 kg, 149.86 cm) jl7 MDM: 16:28 Patient medically screened. cp 18:00 Differential diagnosis: bronchitis, pneumonia UTI, meningitis, appendicitis, PID, cp sepsis. 21:38 Data reviewed: vital signs, nurses notes, lab test result(s), radiologic studies, CT cp scan, ultrasound. 21:38 Counseling: I had a detailed discussion with the patient and/or guardian regarding: the cp historical points, exam findings, and any diagnostic results supporting the discharge/admit diagnosis, lab results, radiology results, the need for outpatient follow up, an OB/Gyne specialist, to return to the emergency department if symptoms worsen or persist or if there are any questions or concerns that arise at home. Response to treatment: the patient's symptoms have markedly improved after treatment, VSS. Fever resolved and pain improved. Patient appears non-toxic. Will discharge to home for continued monitoring. 02/25 16:30 Order name: Urine Dipstick-Ancillary; Complete Time: 16:58 EDMS 02/25 16:58 Interpretation: Normal except: UKET Trace; UBLD 3+; UPROT 3+; UESTR Trace. cp 02/25 16:32 Order name: Urine --Ancillary (enter results); Complete Time: 18:35 bd 02/25 17:02 Order name: Basic Metabolic Panel; Complete Time: 17:43 EDMS 02/25 17:43 Interpretation: Normal except: CL 109; GLUC 154; GFR 86. cp 02/25 17:02 Order name: Liver (Hepatic) Function; Complete Time: 17:43 [facility] 02/25 17:44 Interpretation: Normal except: BILIT 1.1; TP 8.5; GLOB 4.7; A/G 0.8. 02/25 17:02 Order name: Lipase; Complete Time: 17:43 [facility] 02/25 17:02 Order name: CBC with Automated Diff [facility] 02/25 17:25 Interpretation: Normal except: WBC 12.60; KVNG% 89.2; LYM% 6.3; NEUT A 11.2. 02/25 16:59 Order name: CT Abd/Pelvis - IV Contrast Only; Complete Time: 19:13 02/25 19:14 Interpretation: Report reviewed. 02/25 17:02 Order name: Urinalysis W/Microscopic; Complete Time: 17:43 [facility] 02/25 17:45 Interpretation: Normal except: UBLD 3+; UPROT 2+; UESTR 1+; UBACT 20-50; SQEPI 5-10. 02/25 17:30 Order name: Urine Culture [facility] 02/25 17:49 Order name: Influenza Screen (A ; Complete Time: 18:35 [facility] 02/25 17:49 Order name: Group A Streptococcus Rapid Sc; Complete Time: 18:35 [facility] 02/25 18:08 Order name: Throat Culture [facility] 02/25 18:17 Order name: CBC Smear Scan; Complete Time: 18:35 [facility] 02/25 19:29 Order name: GC (GONORR/CHLAMYDIA) Probe 02/25 19:29 Order name: Wet Prep; Complete Time: 21:22 02/25 20:05 Order name: SARS-COV-2 RT PCR; Complete Time: 21:22 [facility] 02/25 20:13 Order name: US Transvaginal Study (Probe); Complete Time: 21:22 02/25 16:20 Order name: Urine Dipstick-Ancillary (obtain specimen); Complete Time: 16:31 02/25 16:20 Order name: Urine Test (obtain specimen); Complete Time: 16:31 02/25 16:29 Order name: IV Saline Lock; Complete Time: 16:59 02/25 16:29 Order name: Labs collected and sent; Complete Time: 16:59 02/25 21:38 Order name: PO challenge; Complete Time: 21:46 cp Administered Medications: 16:59 Drug: Tylenol 1000 mg Route: PO; ld1 16:59 Follow up: Response: No adverse reaction ld1 16:59 Drug: NS 0.9% 1000 ml Route: IV; Rate: 1 bolus; Site: left antecubital; ld1 20:21 Drug: Rocephin (cefTRIAXone) 1 grams Route: IV; Rate: bolus; Site: left antecubital; ch4 20:52 Drug: metroNIDAZOLE 500 mg Volume: 100 ml; Route: IVPB; Infused Over: 30 mins; Site: ch4 left antecubital; 20:52 Drug: Ketorolac 15 mg Route: IVP; Site: left antecubital; ch4 21:51 Drug: Doxycycline 100 mg Route: PO; ch4 Disposition Summary: 02/25/21 21:39 Discharge Ordered Location: Home cp Problem: new cp Symptoms: have improved cp Condition: Stable cp Diagnosis - Female pelvic inflammatory disease, unspecified cp Followup: cp - With: Lei Dominguez MD - When: 2 - 3 days - Reason: Recheck today's complaints Discharge Instructions: - Discharge Summary Sheet cp - Pelvic Inflammatory Disease cp - Pelvic Pain, Female cp Forms: - Medication Reconciliation Form cp - Thank You Letter cp - Antibiotic Education cp - Prescription Opioid Use cp Prescriptions: - Naprosyn 500 mg Oral Tablet - take 1 tablet by ORAL route 2 times per day take with food; 20 tablet; Refills: cp 0, Product Selection Permitted - Zofran 4 mg Oral Tablet - take 1 tablet by ORAL route every 12 hours As needed; 20 tablet; Refills: 0, cp Product Selection Permitted - Doxycycline Hyclate 100 mg Oral Tablet - take 1 tablet by ORAL route every 12 hours; 20 tablet; Refills: 0, Product cp Selection Permitted - Metronidazole 500 mg Oral Tablet - take 1 tablet by ORAL route every 8 hours; 30 tablet; Refills: 0, Product cp Selection Permitted Addendum: 03/02/2021 08:26 Co-signature as Attending Physician, Kvng Mejia MD I agree with the assessment and r n plan of care. Attestation: The patient's history, exam findings, diagnostics, and a summary of any interventions or procedures was reviewed in detail with Lauri YE. Signatures: Dispatcher [employer] EDMS Kvng Mejia MD MD rn Lauri López PA PA cp Leal, Jahala RN RN jl7 Charlee Hernandez RN RN ld1 Kim Templeton, JEFFERY RN ch4 Corrections: (The following items were deleted from the chart) 02/25 18:29 18:19 UA MICROSCOPIC+U.LAB.BRZ ordered. EDMS EDMS 18:29 18:19 BASIC METABOLIC PANEL+C.LAB.BRZ ordered. EDMS EDMS 18: 18:19 CBC+H.LAB.BRZ ordered. EDMS EDMS 18:29 18:19 HEPATIC FUNCTION+C.LAB.BRZ ordered. EDMS EDMS 18:29 18:19 LIPASE+C.LAB.BRZ ordered. EDMS EDMS 18:30 18:19 CORONAVIRUS+MR.LAB.BRZ ordered. EDMS EDMS 18:30 18:19 Influenza Screen (A \T\ B)+BA.LAB.BRZ ordered. EDMS EDMS 18:30 18:19 Group A Streptococcus Rapid Sc+BA.LAB.BRZ ordered. EDMS EDMS
--- NOTE | 2021-02-25 21:40 | ER ---
Nurse's Notes [facility] Name: Mckenzie Ornelas Age: 25 yrs Sex: Female : 1995 Arrival Date: 02/25/2021 Time: 16:04 Bed 12 Private MD: Diagnosis: Female pelvic inflammatory disease, unspecified Presentation: 02/25 16:13 Chief complaint: Patient states: Sore throat last night, fever and nausea today. Also jl7 15 days late on menstrual period, normally 28 day cycle, reports starting today and the blood is black, reports having contraction like abdominal cramping about a week ago with no blood noted, currently has an IUD that's been in place 4 years. Coronavirus screen: Vaccine status: Patient reports being unvaccinated. fever, nausea, sore throat, Client presents with at least one sign or symptom that may indicate coronavirus-19. Standard/surgical mask placed on the client. Provider contacted for isolation considerations. Ebola Screen: No symptoms or risks identified at this time. Initial Sepsis Screen: Does the patient meet any 2 criteria? No. Patient's initial sepsis screen is negative. Does the patient have a suspected source of infection? No. Patient's initial sepsis screen is negative. Risk Assessment: Do you want to hurt yourself or someone else? Patient reports no desire to harm self or others. Onset of symptoms was February 24, 2021. 16:13 Method Of Arrival: Ambulatory [facility] 16:13 Acuity: MARY BETH 3 jl7 Triage Assessment: 16:18 General: Appears in no apparent distress. uncomfortable, Behavior is calm, cooperative, jl7 appropriate for age. Pain: Complains of pain in right lower quadrant and left lower quadrant Pain currently is 0 out of 10 on a pain scale. Quality of pain is described as crampy. GI: Reports nausea. 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 - Social history:: Smoking status: Patient denies any tobacco usage or history of. Screenin:40 Abuse screen: Denies threats or abuse. Denies injuries from another. Nutritional ld1 screening: No deficits noted. Tuberculosis screening: No symptoms or risk factors identified. Fall Risk None identified. Assessment: 16:40 General: Appears in no apparent distress. comfortable, Behavior is calm, cooperative, ld1 appropriate for age. 16:40 Pain: Denies pain. Neuro: Level of Consciousness is awake, alert, confused, Oriented to ld1 person, place, time, situation. Cardiovascular: Capillary refill < 3 seconds Patient's skin is warm and dry. Respiratory: Airway is patent Respiratory effort is even, unlabored, Respiratory pattern is regular, symmetrical. GI: Abdomen is round non-distended, Reports nausea. : No signs and/or symptoms were reported regarding the genitourinary system. EENT: No signs and/or symptoms were reported regarding the EENT system. Derm: No signs and/or symptoms reported regarding the dermatologic system. Musculoskeletal: No signs and/or symptoms reported regarding the musculoskeletal system. 17:52 Reassessment:. Reassessment: Patient appears in no apparent distress at this time. No ld1 changes from previously documented assessment. Patient is alert, oriented x 3, equal unlabored respirations, skin warm/dry/pink. 21:52 Reassessment: Patient is alert, oriented x 3, equal unlabored respirations, skin ch4 warm/dry/pink. Patient states feeling better. Patient states symptoms have improved. Vital Signs: 16:13 BP 119 / 81; Pulse 116; Resp 19; Temp 101.3(O); Pulse Ox 100% ; Weight 88.45 kg; Height jl7 4 ft. 11 in. (149.86 cm); Pain 0/10; 16:40 BP 124 / 84; Pulse 111; Resp 20; Pulse Ox 100% on R/A; Pain 0/10; ld1 17:52 BP 128 / 79; Pulse 101; Resp 19; Pulse Ox 100% ; ld1 21:51 BP 130 / 80; Pulse 87; Resp 17; Temp 98.2; Pulse Ox 100% on R/A; ch4 16:13 Body Mass Index 39.38 (88.45 kg, 149.86 cm) jl7 ED Course: 16:04 Patient arrived in ED. mr 16:18 Triage completed. jl7 16:18 Arm band placed on right wrist. jl7 16:20 Lauri López PA is PHCP. cp 16:20 Kvng Mejia MD is Attending Physician. cp 16:40 Patient has correct armband on for positive identification. Placed in gown. Bed in low ld1 position. Call light in reach. Side rails up X2. Pulse ox on. NIBP on. Door closed. Noise minimized. Warm blanket given. 16:40 Inserted saline lock: 20 gauge in left antecubital area, using aseptic technique. Blood ld1 collected. 18:55 CT Abd/Pelvis - IV Contrast Only In Process Unspecified. EDMS 19:18 Charlee Hernandez, RN is Primary Nurse. ld1 19:48 Assist provider with pelvic exam: Set up pelvic tray. Performed by Lauri YE ch4 Specimens sent to lab. Patient tolerated well. 19:56 Wet Prep Sent. ch4 19:56 GC (GONORR/CHLAMYDIA) Probe Sent. ch4 20:58 US Transvaginal Study (Probe) In Process Unspecified. EDMS 21:39 Lei Dominguez MD is Referral Physician. cp 21:52 IV discontinued, intact, bleeding controlled, No redness/swelling at site. ch4 Administered Medications: 16:59 Drug: Tylenol 1000 mg Route: PO; ld1 16:59 Follow up: Response: No adverse reaction ld1 16:59 Drug: NS 0.9% 1000 ml Route: IV; Rate: 1 bolus; Site: left antecubital; ld1 20:21 Drug: Rocephin (cefTRIAXone) 1 grams Route: IV; Rate: bolus; Site: left antecubital; ch4 20:52 Drug: metroNIDAZOLE 500 mg Volume: 100 ml; Route: IVPB; Infused Over: 30 mins; Site: ch4 left antecubital; 20:52 Drug: Ketorolac 15 mg Route: IVP; Site: left antecubital; ch4 21:51 Drug: Doxycycline 100 mg Route: PO; ch4 Outcome: 21:39 Discharge ordered by MD. cp 21:57 Patient left the ED. ch4 Signatures: Dispatcher [employer] EDWA Salome Badillo Lauri López PA PA cp Leal, Jahala, RN RN jl7 Charlee Hernandez, JEFFERY RN ld1 Kim Templeton RN RN ch4 Corrections: (The following items were deleted from the chart) 17:52 17:50 Reassessment: Patient appears in no apparent distress at this time. Patient is ld1 alert/active/playful, equal unlabored respirations, skin warm/dry/pink. ld1 17:53 17:50 Pulse 106bpm; Resp 19bpm; Pulse Ox 100% RA; ld1 ld1
[2021-02-25 22:08] VITALS: O2SAT 100
[2021-02-25 22:12] VITALS: BP 130/80; TEMP 98.2
[2021-02-25] MEDS ORDERED: DOXYCYCLINE 100 MG CAP PO ONE (22:12)
[2021-03-03 03:49] LABS: C.trachomatis RNA,TMA Not Detected (Not Detected)
== END 2021-02-25 21:57 | disposition home or self-care (01) ==
LOC: ER 16:00
DX: N73.9 Female pelvic inflammatory disease, unspecified (principal); Z88.0 Allergy status to penicillin; Z20.822 Contact with and (suspected) exposure to COVID-19
CPT/HCPCS: 36415; 74177; 76830; 80048; 80076; 81001; 81003; 81025; 83690; 85025; 87070; 87081; 87086; 87088; 87210; 87490; 87590; 87804; 96374; 96375; 99284; J7030; Q9967; U0003

== ENCOUNTER 2022-03-10 16:38 | Emergency (ER) | payer SELFPAY ==
--- NOTE | 2022-03-10 17:04 | EDPHYS ---
Physician Documentation [facility] Name: Mckenzie Ornelas Age: 26 yrs Sex: Female : 1995 Arrival Date: 03/10/2022 Time: 16:40 Bed IW1 Private MD: ED Physician Kvng Mejia HPI: 03/10 16:59 This 26 yrs old Female presents to ER via Ambulatory with complaints of Cough, rn Congestion. 16:59 The patient or guardian reports cough. Onset: The symptoms/episode began/occurred 1 rn month(s) ago. Severity of symptoms: At their worst the symptoms were moderate, in the emergency department the symptoms have improved. Modifying factors: The symptoms are alleviated by nothing, the symptoms are aggravated by nothing. The patient has not experienced similar symptoms in the past. The patient has been recently seen by a physician:. Pt reports sick earlier in month, overall much better, s/p abx and steroids. No fever. Reports here because her work told her she needs clearance. Otherwise would not have come to ER. . 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 - Social history:: Smoking status: Patient denies any tobacco usage or history of. - Family history:: not pertinent. - Hospitalizations: : No recent hospitalization is reported. ROS: 16:59 Constitutional: Negative for fever, chills, and weight loss, Eyes: Negative for injury, rn pain, redness, and discharge, ENT: neg for congestion Neck: Negative for injury, pain, and swelling, Cardiovascular: Negative for chest pain, palpitations, and edema, Respiratory: + cough, neg for sob Abdomen/GI: Negative for abdominal pain, nausea, vomiting, diarrhea, and constipation, Back: Negative for injury and pain, MS/Extremity: Negative for injury and deformity, Skin: Negative for injury, rash, and discoloration, Neuro: Negative for headache, weakness, numbness, tingling, and seizure. Exam: 16:59 Constitutional: This is a well developed, well nourished patient who is awake, alert, rn and in no acute distress. Eyes: Periorbital areas with no swelling, redness, or edema. ENT: Clear bilateral TM Cardiovascular: Regular rate and rhythm. No pulse deficits. Respiratory: No increased work of breathing, no retractions or nasal flaring. MS/ Extremity: Pulses equal, no cyanosis. Neuro: Awake and alert, GCS 15 Vital Signs: 16:47 BP 140 / 80; Pulse 86; Resp 16; Temp 98.2(TE); Pulse Ox 100% on R/A; bm7 MDM: 16:41 Patient medically screened. rn 16:59 Differential Diagnosis: Upper Respiratory Infection Viral Syndrome. Differential rn Diagnosis: Allergic Rhinitis. Data reviewed: vital signs, nurses notes. Data reviewed: and as a result, I will discharge patient. Counseling: I had a detailed discussion with the patient and/or guardian regarding: the historical points, exam findings, and any diagnostic results supporting the discharge/admit diagnosis, the need for outpatient follow up, to return to the emergency department if symptoms worsen or persist or if there are any questions or concerns that arise at home. Special discussion: I discussed with the patient/guardian in detail that at this point there is no indication for admission to the hospital. It is understood, however, that if the symptoms persist or worsen the patient needs to return immediately for re-evaluation. 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
--- NOTE | 2022-03-10 17:04 | ER ---
Nurse's Notes [facility] Name: Mckenzie Ornelas Age: 26 yrs Sex: Female : 1995 Arrival Date: 03/10/2022 Time: 16:40 Bed IW1 Private MD: Diagnosis: Cough;Viral illness Presentation: 03/10 16:56 Chief complaint: Patient states: I have had a cough and congestion for a month and I bm7 got sent home from [place] to see what is going on. Coronavirus screen: At this time, the client does not indicate any symptoms associated with coronavirus-19. Ebola Screen: No symptoms or risks identified at this time. Resp Distress? No respiratory distress is noted at this time. Initial Sepsis Screen: Does the patient meet any 2 criteria? No. Patient's initial sepsis screen is negative. Does the patient have a suspected source of infection? No. Patient's initial sepsis screen is negative. Risk Assessment: Do you want to hurt yourself or someone else? Patient reports no desire to harm self or others. Onset of symptoms is unknown. 16:56 Method Of Arrival: Ambulatory [facility] 16:56 Acuity: MARY BETH 4 7 Triage Assessment: 16:48 General: Appears in no apparent distress. uncomfortable, Behavior is calm, cooperative, bm7 appropriate for age. Pain: Complains of pain in right ear and left ear. EENT: Tympanic membrane clear on right ear and left ear Oral mucosa is moist. Reports nasal congestion nasal discharge pain in right ear and left ear. Neuro: No deficits noted. Cardiovascular: No deficits noted. Respiratory: Reports cough that is non-productive, persistent Airway is patent Respiratory effort is even, unlabored, Respiratory pattern is regular, symmetrical, Breath sounds are clear bilaterally. GI: No deficits noted. No signs and/or symptoms were reported involving the gastrointestinal system. : No deficits noted. No signs and/or symptoms were reported regarding the genitourinary system. Derm: No deficits noted. No signs and/or symptoms reported regarding the dermatologic system. Musculoskeletal: No deficits noted. No signs and/or symptoms reported regarding the musculoskeletal system. 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 Historical: - Allergies: 16:48 PENICILLINS; [facility] - Home Meds: 16:48 None [Active]; bm7 - PMHx: 16:48 None; bm7 - PSHx: 16:48 Cholecystectomy; Tonsillectomy; bm7 - Immunization history:: Adult Immunizations up to date. - Social history:: Smoking status: Patient denies any tobacco usage or history of. - Family history:: not pertinent. - Hospitalizations: : No recent hospitalization is reported. Screenin:53 Abuse screen: Denies threats or abuse. Nutritional screening: No deficits noted. bm7 Tuberculosis screening: No symptoms or risk factors identified. Fall Risk None identified. Assessment: 16:53 Reassessment: No changes from previously documented assessment. bm7 Vital Signs: 16:47 BP 140 / 80; Pulse 86; Resp 16; Temp 98.2(TE); Pulse Ox 100% on R/A; bm7 ED Course: 16:40 Patient arrived in ED. rg4 16:41 Kvng Mejia MD is Attending Physician. rn 16:47 Arm band placed on right wrist. bm7 16:53 Patient has correct armband on for positive identification. Client placed on continuous bm7 cardiac and pulse oximetry monitoring. NIBP monitoring applied. 16:53 No provider procedures requiring assistance completed. Patient did not have IV access bm7 during this emergency room visit. Patient maintains SpO2 saturation greater than 95% on room air. 16:57 Triage completed. bm7 17:40 Mame Jacobson RN is Primary Nurse. iw Administered Medications: No medications were administered Medication: 16:53 VIS not applicable for this client. bm7 Outcome: 16:53 Discharged to home ambulatory, with family. bm7 16:53 Condition: good 16:53 Discharge instructions given to patient, family, Instructed on discharge instructions, follow up and referral plans. medication usage, Demonstrated understanding of instructions, follow-up care, medications, Prescriptions given X 17:03 Discharge ordered by . rn 17:40 Patient left the ED. iw Signatures: Mame Jacobson RN RN iw Kvng Mejia MD MD rn Garcia, Rubi 4 Becca Aguiar RN RN 7
[2022-03-12 10:06] VITALS: BP 140/80; TEMP 98.2; O2SAT 100
== END 2022-03-10 17:40 | disposition home or self-care (01) ==
LOC: ER 16:38
DX: B34.9 Viral infection, unspecified (principal); Z88.0 Allergy status to penicillin
CPT/HCPCS: 99284

== ENCOUNTER 2024-05-28 01:03 | Emergency (ER) | payer OTHER, SELFPAY ==
--- OUTSIDE RECORDS SUMMARY | 2024-05-28 01:10 | XMS REPORT | Continuity of Care Document ---
Author Name Unknown Address [address] [facility] [address] [place] [address] [facility] thconnect Address [address] [facility] [address] [place] [address] Care Team Providers Care Head Librarian Name Role Phone ADONAY CHAMPAGNE Primary Care Physician Unav shan Nurse, Anil Childschmelly Rgv [facility] Obgyn Attending Clini JENNIFER Jay Attending Clinician Unavaila hillary NurseAnilchmelly Rgv Cprit Obgyn Attending Clini Jennifer Jay CNM Attending Clinician [phone] ADONAY CHAMPAGNE Attending Clinician Unavail able SAYRA BOOGIE Attending Clinician Unavailable Adonay Garcia Attending Clinician + Doctor Unassigned, [place] Attending Clinician U navailable Visit, Nyasia Nurse Attending Clinician Unava ilNATALIO Beckham Attending Clinician Francine Burrows MD, Natalio Lugo Attending Clinician + [phone] Hallie Sosa MD Attending Clinician [phone] Henrry Phan MD Attending Clinician + LATESHA HARVEY Attending Clinician Unavail able Risk, Obk-Qhfil-Ka/High Attending Clinician Tonyav Latesha Haq NP Attending Clinician [phone] JOHN NAVAS Attending Clinician Unav ailable 1, [facility] Attending Clinician Unavailab flip Navas MD, John Guerrero Attending Clinician + LASHON PRADO Attending Clinician Unavailable LASHON PRADO Attending Clinician Unavailable Mona IGLESIAS, Simon M Attending Clinician + [phone] Lashon Prado MD Attending Clinician + [phone] Gabbi Velazquez RN Attending Clinician Unavailable VITALY LOPEZ Attending Clinician Unavailable Uziel IGLESIAS, Vitaly Lagunas Attending Clinician [phone] Negra Cowart RN Attending Clinician Unavailabl HALLIE Wilson Attending Clinician Unavailable Ultrasound, Ang-Mfm Attending Clinician Unavaila hillary Wheeler MD, Ernestina Attending Clinician + Lab, Ang-Rmchp Attending Clinician Unavailable Amanda Schreiber MD Attending Clinician [phone] AMANDA SCHREIBER Attending Clinician Unavailable Jatin Collado MD Attending Clinician [phone] Alex PAC, K Zaira Attending Clinician [phone] Teena Whaley NP Attending Clinician [phone] TEENA WHALEY Attending Clinician Unavailable Provider, [facility] Temp Attending Clinician Tonya vailable TEETEE WHIPPLE Attending Clinician Unavailable TEETEE WHIPPLE Attending Clinician Unavailable 2, [facility] Attending Clinician Unavailab Teetee Morgan MD Attending Clinician [phone] RAMIN NICE Attending Clinician Unavailable Ramin Nice DO Attending Clinician [phone] ERNESTINA JONES Attending Clinician Unav ailable NATALIO BURROWS Admitting Clinician Unavaildread Burrows MD, Natalio Lugo Admitting Clinician [phone] LASHON PRADO Admitting Clinician Unavailable Lashon Prado MD Admitting Clinician + [phone] John Navas MD Admitting Clinician + VIOLA NAVASMemo ZACARIASUVBOGIAruna Admitting Clinician Unav ailable VITALY LOPEZ Admitting Clinician Unavailable Vitaly Lopez MD Admitting Clinician [phone] HALLIE SOSA Admitting Clinician Unavailable Hallie Sosa MD Admitting Clinician [phone] AMANDA SCHREIBER Admitting Clinician Unavailable Amanda Schreiber MD Admitting Clinician [phone] Payers Payer Name Policy Type Policy Number Effective Date Expirati on Date Source [employer] [facility] [id number] 2022 00:00:00 Problems Condition Name Condition Details Condition Category Status Onset Date Resolution Date Last Treatment Date Treating Clinician Comments Source Elevated blood pressure reading without diagnosis of hypertensi on Elevated blood pressure reading without diagnosis of hypertensi on Disease Active 08-18 00:00: 00 [facility] Need for HPV vaccinatio n Need for HPV vaccinatio n Disease Active 07-08 00:00: 00 [facility] Obesity (BMI 30-39.9) Obesity (BMI 30-39.9) Disease Active 2022-06 00:00: 00 [facility] History of tubal ligation History of tubal ligation Disease Active 2022-06 00:00: 00 [facility] Declines flu vaccine Declines flu vaccine Disease Active 2022-06 00:00: 00 [facility] History of depression History of depression Disease Active 11-30 00:00: 00 Overview: Formattin g of this note might be different from the original. Reports last on meds x1year ago [facility] Obesity (BMI 30-39.9) Obesity (BMI 30-39.9) Disease Active 07-08 00:00: 00 [facility] Abnormal maternal glucose tolerance, antepartum Abnormal maternal glucose tolerance, antepartum Disease Resolve d 2022-0617 00:00: 00 2023-08-19 00:00:00 2023-08-19 08:20:11 [facility] Anemia of mother in , antepartum Anemia of mother in , antepartum Disease Resolve d 2022-06 1-17 00:00: 00 2023-08-19 00:00:00 2023-08-19 08:21:23 [facility] Susceptibl e to varicella (non-immun e), currently Susceptibl e to varicella (non-immun e), currently Disease Resolve d 2022-0 6-21 00:00: 00 2023-08-19 00:00:00 2023-08-19 08:20:20 Overview: Formattin g of this note might be different from the original. Address pp [facility] S/P section S/P section Disease Resolve d 1-10 00:00: 00 2023-07-08 00:00:00 2023-07-08 09:29:31 [facility] Preeclamps ia, third trimester Preeclamps ia, third trimester Disease Resolve d 2022-06 2-20 00:00: 00 2023-07-08 00:00:00 2023-07-08 09:29:32 [facility] Recurrent UTI (urinary tract infection) complicati ng Recurrent UTI (urinary tract infection) complicati ng Disease Resolve d 6-23 00:00: 00 2023-07-08 00:00:00 2023-07-08 09:29:43 Overview: Formattin g of this note might be different from the original. Pending chloe-still positive [facility] History of pre-eclamp jorden History of pre-eclamp jorden Disease Resolve d 6-20 00:00: 00 2023-07-08 00:00:00 2023-07-08 09:29:36 Overview: Formattin g of this note might be different from the original. In both [facility] Supervisio n of high-risk Supervisio n of high-risk Disease Resolve d 6-20 00:00: 00 2023-07-08 00:00:00 2023-07-08 09:29:30 [facility] Multiparit y Multiparit y Disease Resolve d 6-20 00:00: 00 2023-07-08 00:00:00 2023-07-08 09:29:34 [facility] 35 weeks gestation of 35 weeks gestation of Disease Resolve d 2023-0 1-04 00:00: 00 2023-06-22 00:00:00 2023-06-22 19:03:26 [facility] Obesity in Obesity in Disease Resolve d 1- 00:00: 00 2023-06-22 00:00:00 2023-06-22 19:05:36 [facility] 32 weeks gestation of 32 weeks gestation of Disease Resolve d 2022-1 2-20 00:00: 00 2023-06-04 00:00:00 2023-06-04 06:00:28 [facility] Elevated blood pressure affecting , antepartum Elevated blood pressure affecting , antepartum Disease Resolve d 2022-1 2-20 00:00: 00 2023-06-04 00:00:00 2023-06-04 06:00:32 [facility] 30 weeks gestation of 30 weeks gestation of Disease Resolve d 2022-1 2-05 00:00: 00 2023-06-04 00:00:00 2023-06-04 06:00:27 [facility] Normal spontaneou s vaginal delivery Normal spontaneou s vaginal delivery Disease Resolve d 1 00:00: 00 2022-11-30 00:00:00 2022-11-30 14:47:45 [facility] Pre-eclamp jorden in third trimester Pre-eclamp jorden in third trimester Disease Resolve d 07-08 00:00: 00 2016-08-23 00:00:00 2016-08-23 11:05:45 [facility] History of pre-eclamp jorden in prior , currently , third trimester History of pre-eclamp jorden in prior , currently , third trimester Disease Resolve d 07-08 00:00: 00 2016-08-23 00:00:00 2016-08-23 11:05:45 [facility] Anemia affecting in third trimester Anemia affecting in third trimester Disease Resolve d 07-08 00:00: 00 2016-08-23 00:00:00 2016-08-23 11:05:45 [facility] 36 weeks gestation of 36 weeks gestation of Disease Resolve d 07-08 00:00: 00 2016-07-10 00:00:00 2016-07-10 08:29:19 [facility] Insufficie nt care in third trimester Insufficie nt care in third trimester Disease Resolve d 07-08 00:00: 00 2016-07-10 00:00:00 2016-07-10 08:29:11 [facility] History of forceps delivery in prior , currently History of forceps delivery in prior , currently Disease Resolve d 07-08 00:00: 00 2016-07-10 00:00:00 2016-07-10 08:28:30 [facility] Allergies, Adverse Reactions, Alerts Allergy Name Allergy Type Status Severity Reaction(s) Onset Date Inactive Date Treating Clinician Comments Source Penicill ins Propensi ty to adverse reaction s Active Rash 2015-06 00:00: 00 [facility] PENICILL INS Drug Class Active Rash 2015-06 00:00: 00 [facility] Penicill ins Propensi ty to adverse reaction s Active Rash 2015-06 00:00: 00 [facility] Social History Social Habit Start Date Stop Date Quantity Comments Source ASSERTION 2022-10-28 00:00:00 [facility] Gender identity [facility] Exposure to SARS-CoV-2 (event) Not sure [facility] Alcohol intake 2023-08-19 00:00:00 2023-08-19 00:00:00 0 /d [facility] Alcoholic beverage intake 2023-08-19 00:00:00 2023-08-19 00:00:00 0 /d [facility] Tobacco use and exposure 2023-06-16 00:00:00 2023-06-16 00:00:00 Smokeless tobacco non-user [facility] History of Social function 2023-05-17 00:00:00 2023-05-17 00:00:00 [facility] Sex assigned at 1995 00:00:00 1995 00:00:00 [facility] Smoking Status Start Date Stop Date Source Never smoked tobacco [facility] Medications Ordered Medication Name Filled Medication Name Start Date Stop Date Current Medication? Ordering Clinician Indication Dosage Frequency Signature (SIG) Comments Components Source NIFEdipine ER 30 mg tablet 08-18 00:00: 00 Yes [id number] 30mg Take 1 tablet by mouth in the morning. [facility] buPROPion XL 150 mg 24 hr tablet 08-18 00:00: 00 Yes [id number] 150mg Take 1 tablet by mouth in the morning. [facility] vit no.124/iron /folic ( VITAMIN ORAL) 06-20 06:14: 58 06-20 00:00 :00 No Take by mouth. [facility] buPROPion XL (WELLBUTRIN XL) tablet 150 mg 06-20 05:00: 00 Yes 150mg 150 mg, Oral, Q24H ABX, First dose on 06/19/23 at 2300, Until Discontinu ed, Routine [facility] [id number] fum-folic () 27 mg iron- 1 mg folic tablet 06-20 00:00: 00 08-18 00:00 :00 No [id number] 1{tbl} Take 1 tablet by mouth in the morning. [facility] docusate 100 mg capsule 06-20 00:00: 00 08-18 00:00 :00 No [id number] 200mg Take 2 capsules by mouth once daily as needed for Constipati on. [facility] ferrous sulfate 325 mg (65 mg iron) tablet 06-20 00:00: 00 08-18 00:00 :00 No [id number] 325mg Take 1 tablet by mouth in the morning and 1 tablet in the evening. [facility] ibuprofen 600 mg tablet 06-20 00:00: 00 08-18 00:00 :00 No [id number] 600mg Take 1 tablet by mouth every 6 (six) hours as needed (Pain). Take with food or milk. [facility] buPROPion XL 150 mg 24 hr tablet 06-20 00:00: 00 08-18 00:00 :00 No [id number] 150mg Take 1 tablet by mouth in the morning. [facility] NIFEdipine ER 30 mg tablet 06-20 00:00: 00 08-18 00:00 :00 No [id number] 30mg Take 1 tablet by mouth in the morning. [facility] HYDROcodone -acetaminop hen 5-325 mg tablet 06-20 00:00: 00 07-01 05:59 :00 No [id number] 1{tbl} Take 1 tablet by mouth every 6 (six) hours as needed (Pain scale above 4) for up to 10 days. Do not exceed 3 grams of acetaminop hen in 24 hours. Indication s: acute pain [facility] acetaminoph en (TYLENOL) tablet 650 mg 06-19 13:08: 11 Yes 650mg 650 mg, Oral, Q6HPRN, Starting on Tue06/19/23 at 0708, Until Discontinu ed, Routine, Pain (scale 4-6) [facility] polyethylen e glycol 3350 powder 17 g 06-19 12:31: 02 Yes 17g 17 g, Oral, PRN, Starting on Tue06/19/23 at 0631, Until Discontinu ed, Routine, Constipati on [facility] D5W-LR IV infusion 1,000 mL 06-18 01:15: 00 Yes 1000mL at 75 mL/hr, IV Infusion, CONTINUOUS , Starting on Tue06/17/23 at 1915, Until Discontinu ed, Routine [facility] ibuprofen (IBU) tablet 600 mg 06-18 00:00: 00 Yes 600mg 600 mg, Oral, Q6H, First dose on Tue06/17/23 at 1800, Until Discontinu ed, Routine [facility] rho(D) immune globulin (RHOGAM) syringe 300 mcg 06-17 19:47: 57 Yes 300ug 300 mcg, Intramuscu lar, ONCE, For 1 dose, Conditiona l, Routine [facility] human papillomav vac,9-debbi(P F) (GARDASIL-9 ) syringe 0.5 mL 06-17 19:47: 53 Yes .5mL 0.5 mL, Intramuscu lar, ONCE-PRIOR TO DISCHARGE, 1 dose, Starting on Tue06/17/23 at 1347, Until Discontinu ed, Routine, Give vaccine prior to discharge [facility] diphenhydrA MINE (BENADRYL) injection 25 mg 06-17 19:47: 53 Yes 25mg 25 mg, Slow IV Push, Q6HPRN, Starting on Tue06/17/23 at 1347, Until Discontinu ed, Routine, Itching [facility] diphenhydrA MINE (BENADRYL) tablet 25 mg 06-17 19:47: 53 Yes 25mg 25 mg, Oral, Q6HPRN, Starting on Tue06/17/23 at 1347, Until Discontinu ed, Routine, Sleep, Itching [facility] ondansetron (ZOFRAN (PF)) injection 4 mg 06-17 19:47: 53 Yes 4mg 4 mg, Slow IV Push, Q8HPRN, Starting on Tue06/17/23 at 1347, Until Discontinu ed, Routine, Nausea and Vomiting (N/V) [facility] bisacodyL (DULCOLAX) suppository 10 mg 06-17 19:47: 53 Yes 10mg 10 mg, Rectal, QDAILYPRN, Starting on Tue06/17/23 at 1347, Until Discontinu ed, Routine, Constipati on [facility] simethicone (GAS RELIEF (SIMETHICON E)) chewable tablet 160 mg 06-17 19:47: 53 Yes 160mg 160 mg, Oral, PC+HSPRN, Starting on Tue06/17/23 at 1347, Until Discontinu ed, Routine, Gas [facility] docusate (COLACE) capsule 200 mg 06-17 19:47: 53 Yes 200mg 200 mg, Oral, QDAILYPRN, Starting on Tue06/17/23 at 1347, Until Discontinu ed, Routine, Constipati on [facility] magnesium hydroxide (MILK OF MAGNESIA) 400 mg/5 mL suspension 30 mL 06-17 19:47: 53 Yes 30mL 30 mL, Oral, QDAILYPRN, Starting on Tue06/17/23 at 1347, Until Discontinu ed, Routine, Constipati on [facility] lactated ringers IV infusion 1,000 mL 06-17 19:47: 53 Yes 1000mL at 125 mL/hr, 1,000 mL, IV Infusion, PRN, 1 dose, Starting on Tue06/17/23 at 1347, Until Discontinu ed, Routine [facility] HYDROcodone -acetaminop hen (NORCO 5) 5-325 mg tablet 2 tablet 06-17 19:47: 53 06-19 13:08 :32 No 2{tbl} 2 tablet, Oral, Q6HPRN, Starting on Tue06/17/23 at 1347, Until 06/19/23 at 0708, Routine, Pain (scale 7-10), Alternate with Ibuprofen [facility] HYDROcodone -acetaminop hen (NORCO 5) 5-325 mg tablet 1 tablet 06-17 19:47: 53 06-19 13:08 :32 No 1{tbl} 1 tablet, Oral, Q6HPRN, Starting on Tue06/17/23 at 1347, Until 06/19/23 at 0708, Routine, Pain (scale 4-6), Alternate with Ibuprofen [facility] labetaloL (NORMODYNE) injection 40 mg 06-17 16:30: 00 06-17 15:32 :00 No 40mg 40 mg, Slow IV Push, ONCE, 1 dose, On Tue06/17/23 at 1030, Routine [facility] HYDROcodone -acetaminop hen (NORCO) 10-325 mg tablet 1 tablet 06-17 16:23: 48 06-17 19:17 :00 No 1{tbl} 1 tablet, Oral, Q6HPRN, 1 dose, Starting on Tue06/17/23 at 1023, Until Tue06/17/23 at 1317, Routine, Pain (scale 7-10) [facility] sodium citrate-cit madina acid (BICITRA) 500-334 mg/5 mL solution 30 mL 06-17 15:43: 43 06-17 16:05 :00 No 30mL 30 mL, Oral, PRE-PROCED URE ONCE, 1 dose, Starting on Tue06/17/23 at 0943, Until Tue06/17/23 at 1005, Routine, Surgery [facility] ceFAZolin (ANCEF) 2,000 mg in NaCl 0.9% (NS) 100 mL MINI-BAG 06-17 15:43: 21 06-17 19:47 :55 No 2000mg 2,000 mg, IV Piggyback, O.R. HOLDING ONCE, Starting on Tue06/17/23 at 0943, Until Tue06/17/23 at 1347, Administer over 30 Minutes, 100 mL
Reas on for Anti-Infec tive: Surgical Prophylaxi s
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
Duration of therapy: within 24 hours of surgery [facility] labetaloL (NORMODYNE) injection 20 mg 06-17 15:04: 00 06-17 15:11 :00 No 20mg 20 mg, Slow IV Push, ONCE, 1 dose, On Tue06/17/23 at 0915, Routine [facility] vit no.124/iron /folic ( VITAMIN ORAL) 06-17 12:19: 42 Yes Take by mouth. [facility] acetaminoph en (TYLENOL) tablet 1,000 mg 06-17 11:15: 00 06-17 10:26 :00 No 1000mg 1,000 mg, Oral, ONCE, 1 dose, On Tue06/17/23 at 0515, Routine [facility] diphenhydrA MINE (BENADRYL) tablet 25 mg 06-17 03:55: 21 06-17 19:47 :55 No 25mg 25 mg, Oral, Q4HPRN, Starting on Tue06/16/23 at 2155, Until Tue06/17/23 at 1347, Routine, Itching [facility] ropivacaine 0.2 % (NAROPIN (PF)) epidural infusion 06-17 00:58: 00 Yes Epidural, CONTINUOUS PRN, Starting on Tue06/16/23 at 1858, Until Discontinu ed, Routine, Intra-op [facility] lidocaine-e pinephrine (XYLOCAINE W/EPINEPHRI NE) 1.5 %-1:200,000 injection 06-17 00:58: 00 Yes Epidural, ONCE INTRA PROCEDURE, Starting on Samia 06/16/23 at 1858, Until Discontinu ed, Routine, Intra-op [facility] labetaloL (NORMODYNE) injection 20 mg 06-17 00:15: 00 06-16 23:24 :00 No 20mg 20 mg, Slow IV Push, ONCE, 1 dose, On Tue06/16/23 at 1815, Routine [facility] sodium citrate-cit madina acid (BICITRA) 500-334 mg/5 mL solution 30 mL 06-17 00:01: 20 06-17 00:44 :00 No 30mL 30 mL, Oral, PRE-PROCED URE ONCE, 1 dose, Starting on Tue06/16/23 at 1801, Until Discontinu ed, Routine, Surgery/Pr ocedure [facility] lactated ringers IV infusion 500 mL 06-17 00:01: 20 06-17 01:15 :20 No 500mL at 999 mL/hr, 500 mL, IV Infusion, PRN - SEE INSTRUCTIO NS, 1 dose, Starting on Tue06/16/23 at 1801, Until Tue06/16/23 at 1915, Routine [facility] acetaminoph en (TYLENOL) tablet 1,000 mg 06-17 00:00: 00 06-16 23:04 :00 No 1000mg 1,000 mg, Oral, ONCE, 1 dose, On Samia 06/16/23 at 1800, Routine [facility] ondansetron (ZOFRAN (PF)) injection 4 mg 06-16 20:27: 52 06-17 19:47 :55 No 4mg 4 mg, Slow IV Push, Q6HPRN, Nausea and Vomiting (N/V), Starting on Samia 06/16/23 at 1427
Do ses of ondansetro n 16 mg and above need to be administer ed via IV piggyback. For Dose >=24mg ECG monitoring is advisable.
[facility] D5W-LR IV infusion 1,000 mL 06-16 19:45: 00 06-17 19:47 :55 No 1000mL at 75 mL/hr, IV Infusion, CONTINUOUS , Starting on Samia 06/16/23 at 1345, Until Tue06/17/23 at 1347, BRENDA [facility] oxytocin (PITOCIN) 30 units in NS 500 mL IV infusion 06-16 19:34: 38 06-17 16:24 :18 No 2mU/min at 2-40 mL/hr, IV Infusion, TITRATE, Starting on Samia 06/16/23 at 1334, Until 06/17/23 at 1024, BRENDA [facility] D5W-LR IV infusion 1,000 mL 06-16 19:32: 20 06-17 19:47 :55 No 1000mL at 1-125 mL/hr, IV Infusion, TITRATE, Starting on Samia 06/16/23 at 1332, Until 06/17/23 at 1347, Routine [facility] labetaloL (NORMODYNE) injection 20 mg 06-16 19:30: 00 06-16 19:37 :00 No 20mg 20 mg, Slow IV Push, ONCE, 1 dose, On Samia 06/16/23 at 1345, Routine [facility] vit no.124/iron /folic ( VITAMIN ORAL) 06-16 10:58: 44 Yes Take by mouth. [facility] vit no.124/iron /folic ( VITAMIN ORAL) 2022-06 14:34: 28 Yes Take by mouth. [facility] vit no.124/iron /folic ( VITAMIN ORAL) 2022-06 00:02: 03 Yes Take by mouth. [facility] vitamin w/FA tablet 1 tablet 2022-06 15:00: 00 Yes 1{tbl} 1 tablet, Oral, DAILY, First dose on Tue06/02/23 at 0900, Until Discontinu ed, Routine [facility] Nitrofurant oin&Nit. Macrocryst (MACROBID) 100 mg capsule 100 mg 2022-06 14:30: 00 06-03 13:59 :00 No 100mg 100 mg, Oral, BID, 2 doses, First dose on Tue06/02/23 at 0830, Last dose on Tue06/02/23 at 2000, Routine
Reason for Anti-Infec tive: Documented Infection< br>Documen roslyn Infection Site: Urine
D uration of Therapy: Other (see Comments) [facility] vit no.124/iron /folic ( VITAMIN ORAL) 2022-06 12:35: 36 Yes Take by mouth. [facility] alum-mag hydroxide-s imeth (MAG-AL PLUS) 200-200-20 mg/5 mL suspension 30 mL 2022-06 02:14: 18 Yes 30mL 30 mL, Oral, Q6HPRN, Starting on Tue06/01/23 at 2013, Until Discontinu ed, Routine, Indigestio n [facility] docusate (COLACE) capsule 200 mg 2022-06 02:14: 18 Yes 200mg 200 mg, Oral, QHSPRN, Starting on Tue06/01/23 at 2013, Until Discontinu ed, Routine, Constipati on [facility] magnesium hydroxide (MILK OF MAGNESIA) 400 mg/5 mL suspension 30 mL 2022-06 02:14: 18 Yes 30mL 30 mL, Oral, QDAILYPRN, Starting on Tue06/01/23 at 2013, Until Discontinu ed, Routine, Constipati on [facility] Nitrofurant oin&Nit. Macrocryst (MACROBID) 100 mg capsule 2022-06 00:00: 00 06-20 00:00 :00 No [id number] 100mg Take 1 capsule by mouth in the morning for 30 days. [facility] buPROPion XL (WELLBUTRIN XL) 150 mg 24 hr tablet 2022-06 00:00: 00 06-20 00:00 :00 No [id number] 150mg Take 1 tablet by mouth in the morning. [facility] Nitrofurant oin&Nit. Macrocryst (MACROBID) 100 mg capsule 2022-06 00:00: 00 05-31 05:59 :00 No [id number] 100mg Take 1 capsule by mouth in the morning and 1 capsule in the evening. Do all this for 10 days. [facility] SERTraline (ZOLOFT) 50 mg tablet 2022-06 00:00: 00 06-20 00:00 :00 No [id number] 50mg Take 1 tablet by mouth in the morning. [facility] vit no.124/iron /folic ( VITAMIN ORAL) 2022-06 22:56: 39 Yes Take by mouth. [facility] vit no.124/iron /folic ( VITAMIN ORAL) 2022-06 14:08: 25 Yes Take by mouth. [facility] Iron Fum & P-FA-Vit B & C No.9 (INTEGRA PLUS) 125 mg iron- 1 mg Cap 2022-06 00:00: 00 06-20 00:00 :00 No [id number] 1{capsu le} Take 1 capsule by mouth in the morning. [facility] Nitrofurant oin&Nit. Macrocryst 100 mg capsule 2022-06 00:00: 00 06-20 00:00 :00 No [id number] 100mg Take 1 capsule by mouth in the morning and 1 capsule in the evening. [facility] vit no.124/iron /folic ( VITAMIN ORAL) 2022-06 1-03 17:22: 03 Yes Take by mouth. [facility] sulfamethox azole-trime thoprim 800-160 mg per tablet 2022-06 0-05 00:00: 00 03-23 04:59 :00 No [id number] 1{tbl} Take 1 tablet by mouth in the morning and 1 tablet in the evening. Do all this for 5 days. [facility] fluconazole 150 mg tablet 2022-06 0-02 00:00: 00 03-19 04:59 :00 No [id number] 150mg Take 1 tablet by mouth every 72 (seventy-t wo) hours for 2 doses. [facility] acetaminoph en (TYLENOL) tablet 650 mg 02-08 01:00: 00 02-08 01:05 :00 No 650mg 650 mg, Oral, ONCE, 1 dose, On Tue02/07/23 at 2000, BRENDA [facility] Nitrofurant oin&Nit. Macrocryst (MACROBID) 100 mg capsule 02-01 00:00: 00 02-12 04:59 :00 No [id number] 100mg Take 1 capsule by mouth in the morning and 1 capsule in the evening. Do all this for 10 days. [facility] cephALEXin (KEFLEX) 500 mg capsule 12-31 00:00: 00 01-11 04:59 :00 No [id number] 500mg Take 1 capsule by mouth 4 (four) times daily for 10 days. [facility] Nitrofurant oin&Nit. Macrocryst (MACROBID) 100 mg capsule 12-03 00:00: 00 12-14 04:59 :00 No [id number] 100mg Take 1 capsule by mouth in the morning and 1 capsule in the evening. Do all this for 10 days. [facility] vit no.124/iron /folic ( VITAMIN ORAL) 11-30 14:33: 48 Yes Take by mouth. [facility] multivitami n ( VITAMIN) tablet 11-30 00:00: 00 Yes [id number] 1{tbl} Take 1 tablet by mouth in the morning. [facility] multivitami n ( VITAMIN) tablet 11-30 00:00: 00 06-20 00:00 :00 No [id number] 1{tbl} Take 1 tablet by mouth in the morning. [facility] ondansetron 4 mg disintegrat ing tablet 07-08 00:00: 00 06-20 00:00 :00 No [id number] 4mg Take 1 tablet by mouth every 8 (eight) hours as needed for Nausea and Vomiting (N/V). [facility] cephALEXin (KEFLEX) 500 mg capsule 07-08 00:00: 00 07-16 05:59 :00 No [id number] 500mg Take 1 capsule by mouth 3 (three) times daily for 7 days. [facility] Immunizations Ordered Immunization Name Filled Immunization Name Date Status Comments Source HPV9 2016-07-10 00:00:00 Completed [facility] Influenza Virus Vaccine Quad IM 3+ 2016-07-10 00:00:00 Completed [facility] HPV9 2016-07-10 00:00:00 Completed [facility] Influenza Virus Vaccine Quad IM 3+ 2016-07-10 00:00:00 Completed [facility] HPV9 2016-07-10 00:00:00 Completed [facility] Influenza Virus Vaccine Quad IM 3+ 2016-07-10 00:00:00 Completed [facility] HPV9 2016-07-10 00:00:00 Completed [facility] Influenza Virus Vaccine Quad IM 2016-07-10 00:00:00 Completed [facility] HPV9 2016-07-10 00:00:00 Completed [facility] Influenza Virus Vaccine Quad IM 3+ 2016-07-10 00:00:00 Completed [facility] HPV9 2016-07-10 00:00:00 Completed [facility] Influenza Virus Vaccine Quad IM 3+ 2016-07-10 00:00:00 Completed [facility] HPV9 2016-07-10 00:00:00 Completed [facility] Influenza Virus Vaccine Quad IM 3+ YRS 2016-07-10 00:00:00 Completed [facility] HPV9 2016-07-10 00:00:00 Completed [facility] Influenza Virus Vaccine Quad IM 3+ YRS 2016-07-10 00:00:00 Completed [facility] HPV9 2016-07-10 00:00:00 Completed [facility] Influenza Virus Vaccine Quad IM 3+ YRS 2016-07-10 00:00:00 Completed [facility] HPV9 2016-07-10 00:00:00 Completed [facility] HPV9 2016-07-10 00:00:00 Completed [facility] Influenza Virus Vaccine Quad IM 3+ YRS 2016-07-10 00:00:00 Completed [facility] Influenza Virus Vaccine Quad IM 3+ YRS 2016-07-10 00:00:00 Completed [facility] HPV9 2016-07-10 00:00:00 Completed [facility] Influenza Virus Vaccine Quad IM 3+ YRS 2016-07-10 00:00:00 Completed [facility] HPV9 2016-07-10 00:00:00 Completed [facility] Influenza Virus Vaccine Quad IM 3+ YRS 2016-07-10 00:00:00 Completed [facility] HPV9 2016-07-10 00:00:00 Completed [facility] Influenza Virus Vaccine Quad IM 3+ YRS 2016-07-10 00:00:00 Completed [facility] HPV9 2016-07-10 00:00:00 Completed [facility] Influenza Virus Vaccine Quad IM 3+ YRS 2016-07-10 00:00:00 Completed [facility] HPV9 2016-07-10 00:00:00 Completed [facility] Influenza Virus Vaccine Quad IM 3+ YRS 2016-07-10 00:00:00 Completed [facility] HPV9 2016-07-10 00:00:00 Completed [facility] Influenza Virus Vaccine Quad IM 3+ YRS 2016-07-10 00:00:00 Completed [facility] HPV9 2016-07-10 00:00:00 Completed [facility] Influenza Virus Vaccine Quad IM 3+ YRS 2016-07-10 00:00:00 Completed [facility] HPV9 2016-07-10 00:00:00 Completed [facility] Influenza Virus Vaccine Quad IM 3+ YRS 2016-07-10 00:00:00 Completed [facility] HPV9 2016-07-10 00:00:00 Completed [facility] Influenza Virus Vaccine Quad IM 3+ YRS 2016-07-10 00:00:00 Completed [facility] TDAP 2016-06-17 00:00:00 Completed [facility] TDAP 2016-06-17 00:00:00 Completed [facility] TDAP 2016-06-17 00:00:00 Completed [facility] TDAP 2016-06-17 00:00:00 Completed [facility] TDAP 2016-06-17 00:00:00 Completed [facility] TDAP 2016-06-17 00:00:00 Completed [facility] TDAP 2016-06-17 00:00:00 Completed [facility] TDAP 2016-06-17 00:00:00 Completed [facility] TDAP 2016-06-17 00:00:00 Completed [facility] TDAP 2016-06-17 00:00:00 Completed [facility] TDAP 2016-06-17 00:00:00 Completed [facility] TDAP 2016-06-17 00:00:00 Completed [facility] TDAP 2016-06-17 00:00:00 Completed [facility] TDAP 2016-06-17 00:00:00 Completed [facility] TDAP 2016-06-17 00:00:00 Completed [facility] TDAP 2016-06-17 00:00:00 Completed [facility] TDAP 2016-06-17 00:00:00 Completed [facility] TDAP 2016-06-17 00:00:00 Completed [facility] TDAP 2016-06-17 00:00:00 Completed [facility] TDAP 2016-06-17 00:00:00 Completed [facility] Influenza Virus Vaccine Quad IM 3+ YRS Unknown Completed [facility] HPV9 Unknown Completed [facility] TDAP Unknown Completed [facility] TDAP Unknown Completed [facility] HPV9 Unknown Completed [facility] Influenza Virus Vaccine Quad IM 3+ YRS Unknown Completed [facility] TDAP Unknown Completed [facility] HPV9 Unknown Completed [facility] Influenza Virus Vaccine Quad IM 3+ YRS Unknown Completed [facility] TDAP Unknown Completed [facility] HPV9 Unknown Completed [facility] Influenza Virus Vaccine Quad IM 3+ YRS Unknown Completed [facility] HPV9 Unknown Completed [facility] Influenza Virus Vaccine Quad IM 3+ YRS Unknown Completed [facility] TDAP Unknown Completed [facility] TDAP Unknown Completed [facility] HPV9 Unknown Completed [facility] Influenza Virus Vaccine Quad IM 3+ YRS Unknown Completed [facility] TDAP Unknown Completed [facility] HPV9 Unknown Completed [facility] Influenza Virus Vaccine Quad IM 3+ YRS Unknown Completed [facility] TDAP Unknown Completed [facility] HPV9 Unknown Completed [facility] Influenza Virus Vaccine Quad IM 3+ YRS Unknown Completed [facility] HPV9 Unknown Completed [facility] Influenza Virus Vaccine Quad IM 3+ YRS Unknown Completed [facility] TDAP Unknown Completed [facility] TDAP Unknown Completed [facility] HPV9 Unknown Completed [facility] Influenza Virus Vaccine Quad IM 3+ YRS Unknown Completed [facility] TDAP Unknown Completed [facility] HPV9 Unknown Completed [facility] Influenza Virus Vaccine Quad IM 3+ YRS Unknown Completed [facility] TDAP Unknown Completed [facility] HPV9 Unknown Completed [facility] Influenza Virus Vaccine Quad IM 3+ YRS Unknown Completed [facility] TDAP Unknown Completed [facility] HPV9 Unknown Completed [facility] Influenza Virus Vaccine Quad IM 3+ YRS Unknown Completed [facility] HPV9 Unknown Completed [facility] Influenza Virus Vaccine Quad IM 3+ YRS Unknown Completed [facility] TDAP Unknown Completed [facility] TDAP Unknown Completed [facility] HPV9 Unknown Completed [facility] Influenza Virus Vaccine Quad IM 3+ YRS Unknown Completed [facility] TDAP Unknown Completed [facility] HPV9 Unknown Completed [facility] Influenza Virus Vaccine Quad IM 3+ YRS Unknown Completed [facility] TDAP Unknown Completed [facility] HPV9 Unknown Completed [facility] Influenza Virus Vaccine Quad IM 3+ YRS Unknown Completed [facility] TDAP Unknown Completed [facility] HPV9 Unknown Completed [facility] Influenza Virus Vaccine Quad IM 3+ YRS Unknown Completed [facility] TDAP Unknown Completed [facility] HPV9 Unknown Completed [facility] Influenza Virus Vaccine Quad IM 3+ YRS Unknown Completed [facility] TDAP Unknown Completed [facility] HPV9 Unknown Completed [facility] Influenza Virus Vaccine Quad IM 3+ YRS Unknown Completed [facility] TDAP Unknown Completed [facility] HPV9 Unknown Completed [facility] Influenza Virus Vaccine Quad IM 3+ YRS Unknown Completed [facility] TDAP Unknown Completed [facility] HPV9 Unknown Completed [facility] Influenza Virus Vaccine Quad IM 3+ YRS Unknown Completed [facility] TDAP Unknown Completed [facility] HPV9 Unknown Completed [facility] Influenza Virus Vaccine Quad IM 3+ YRS Unknown Completed [facility] TDAP Unknown Completed [facility] HPV9 Unknown Completed [facility] Influenza Virus Vaccine Quad IM 3+ YRS Unknown Completed [facility] TDAP Unknown Completed [facility] HPV9 Unknown Completed [facility] Influenza Virus Vaccine Quad IM 3+ YRS Unknown Completed [facility] TDAP Unknown Completed [facility] HPV9 Unknown Completed [facility] Influenza Virus Vaccine Quad IM 3+ YRS Unknown Completed [facility] TDAP Unknown Completed [facility] HPV9 Unknown Completed [facility] Influenza Virus Vaccine Quad IM 3+ YRS Unknown Completed [facility] TDAP Unknown Completed [facility] HPV9 Unknown Completed [facility] Influenza Virus Vaccine Quad IM 3+ YRS Unknown Completed [facility] TDAP Unknown Completed [facility] HPV9 Unknown Completed [facility] Influenza Virus Vaccine Quad IM 3+ YRS Unknown Completed [facility] TDAP Unknown Completed [facility] HPV9 Unknown Completed [facility] Influenza Virus Vaccine Quad IM 3+ YRS Unknown Completed [facility] TDAP Unknown Completed [facility] HPV9 Unknown Completed [facility] Influenza Virus Vaccine Quad IM 3+ YRS Unknown Completed [facility] Influenza Virus Vaccine Quad IM 3+ YRS Unknown Completed [facility] TDAP Unknown Completed [facility] HPV9 Unknown Completed [facility] TDAP Unknown Completed [facility] HPV9 Unknown Completed [facility] Influenza Virus Vacc[facility] Quad IM 3+ YRS Unknown Completed [facility] TDAP Unknown Completed [facility] HPV9 Unknown Completed [facility] Influenza Virus Vaccine Quad IM 3+ YRS Unknown Completed [facility] TDAP Unknown Completed [facility] HPV9 Unknown Completed [facility] Influenza Virus Vaccine Quad IM 3+ YRS Unknown Completed [facility] TDAP Unknown Completed [facility] HPV9 Unknown Completed [facility] Influenza Virus Vaccine Quad IM 3+ YRS Unknown Completed [facility] TDAP Unknown Completed [facility] HPV9 Unknown Completed [facility] Influenza Virus Vaccine Quad IM 3+ YRS Unknown Completed [facility] TDAP Unknown Completed [facility] HPV9 Unknown Completed [facility] Influenza Virus Vaccine Quad IM 3+ YRS Unknown Completed [facility] TDAP Unknown Completed [facility] HPV9 Unknown Completed [facility] Influenza Virus Vaccine Quad IM 3+ YRS Unknown Completed [facility] TDAP Unknown Completed [facility] HPV9 Unknown Completed [facility] Influenza Virus Vaccine Quad IM 3+ YRS Unknown Completed [facility] TDAP Unknown Completed [facility] HPV9 Unknown Completed [facility] Influenza Virus Vaccine Quad IM 3+ YRS Unknown Completed [facility] TDAP Unknown Completed [facility] HPV9 Unknown Completed [facility] Influenza Virus Vaccine Quad IM 3+ YRS Unknown Completed [facility] TDAP Unknown Completed [facility] HPV9 Unknown Completed [facility] Influenza Virus Vaccine Quad IM 3+ YRS Unknown Completed [facility] TDAP Unknown Completed [facility] HPV9 Unknown Completed [facility] Influenza Virus Vaccine Quad IM 3+ YRS Unknown Completed [facility] TDAP Unknown Completed [facility] HPV9 Unknown Completed [facility] Influenza Virus Vaccine Quad IM 3+ YRS Unknown Completed [facility] TDAP Unknown Completed [facility] HPV9 Unknown Completed [facility] Influenza Virus Vaccine Quad IM 3+ YRS Unknown Completed [facility] TDAP Unknown Completed [facility] HPV9 Unknown Completed [facility] Influenza Virus Vaccine Quad IM 3+ YRS Unknown Completed [facility] TDAP Unknown Completed [facility] HPV9 Unknown Completed [facility] Influenza Virus Vaccine Quad IM 3+ YRS Unknown Completed [facility] TDAP Unknown Completed [facility] HPV9 Unknown Completed [facility] Influenza Virus Vaccine Quad IM 3+ YRS Unknown Completed [facility] TDAP Unknown Completed [facility] HPV9 Unknown Completed [facility] Influenza Virus Vaccine Quad IM 3+ YRS Unknown Completed [facility] TDAP Unknown Completed [facility] HPV9 Unknown Completed [facility] Influenza Virus Vaccine Quad IM 3+ YRS Unknown Completed [facility] TDAP Unknown Completed [facility] HPV9 Unknown Completed [facility] Influenza Virus Vaccine Quad IM 3+ YRS Unknown Completed [facility] TDAP Unknown Completed [facility] HPV9 Unknown Completed [facility] Influenza Virus Vaccine Quad IM 3+ YRS Unknown Completed [facility] TDAP Unknown Completed [facility] HPV9 Unknown Completed [facility] Influenza Virus Vaccine Quad IM 3+ YRS Unknown Completed [facility] TDAP Unknown Completed [facility] HPV9 Unknown Completed [facility] Influenza Virus Vaccine Quad IM 3+ YRS Unknown Completed [facility] TDAP Unknown Completed [facility] HPV9 Unknown Completed [facility] Influenza Virus Vaccine Quad IM 3+ YRS Unknown Completed [facility] HPV9 Unknown Completed [facility] Influenza Virus Vaccine Quad IM 3+ YRS Unknown Completed [facility] TDAP Unknown Completed [facility] TDAP Unknown Completed [facility] HPV9 Unknown Completed [facility] Influenza Virus Vaccine Quad IM 3+ YRS Unknown Completed [facility] TDAP Unknown Completed [facility] HPV9 Unknown Completed [facility] Influenza Virus Vaccine Quad IM 3+ YRS Unknown Completed [facility] TDAP Unknown Completed [facility] HPV9 Unknown Completed [facility] Influenza Virus Vaccine Quad IM 3+ YRS Unknown Completed [facility] Vital Signs Vital Name Observation Time Observation Value Comments S ource Systolic blood pressure 2023-08-19 14:43:00 145 mm[Hg] [facility] Diastolic blood pressure 2023-08-19 14:43:00 85 mm[Hg] [facility] Heart rate 2023-08-19 14:39:00 69 /min [facility] Body temperature 2023-08-19 14:39:00 35.78 Ifrah [facility] Respiratory rate 2023-08-19 14:39:00 18 /min [facility] Body height 2023-08-19 14:39:00 149.9 cm [facility] Body weight 2023-08-19 14:39:00 83.099 kg [facility] BMI 2023-08-19 14:39:00 37.00 kg/m2 [facility] Systolic blood pressure 2023-07-08 14:55:00 137 mm[Hg] [facility] Diastolic blood pressure 2023-07-08 14:55:00 90 mm[Hg] [facility] Heart rate 2023-07-08 14:55:00 90 /min [facility] Body temperature 2023-07-08 14:55:00 35.78 Ifrah [facility] Respiratory rate 2023-07-08 14:55:00 18 /min [facility] Body height 2023-07-08 14:55:00 149.9 cm [facility] Body weight 2023-07-08 14:55:00 79.561 kg [facility] BMI 2023-07-08 14:55:00 35.43 kg/m2 [facility] Systolic blood pressure 2023-06-24 14:23:00 158 mm[Hg] [facility] Diastolic blood pressure 2023-06-24 14:23:00 101 mm[Hg] [facility] Heart rate 2023-06-24 14:23:00 93 /min [facility] Body temperature 2023-06-24 14:22:00 36.11 Ifrah [facility] Respiratory rate 2023-06-24 14:22:00 18 /min [facility] Body height 2023-06-24 14:22:00 149.9 cm [facility] Body weight 2023-06-24 14:22:00 78.926 kg [facility] BMI 2023-06-24 14:22:00 35.14 kg/m2 [facility] Systolic blood pressure 2023-06-20 18:07:00 148 mm[Hg] [facility] Diastolic blood pressure 2023-06-20 18:07:00 81 mm[Hg] [facility] Heart rate 2023-06-20 18:07:00 76 /min [facility] Body temperature 2023-06-20 18:07:00 36.83 Ifrah [facility] Respiratory rate 2023-06-20 18:07:00 18 /min [facility] Oxygen saturation in Arterial blood by Pulse oximetry 2023-06-20 18:07:00 96 /min [facility] Body height 2023-06-16 17:10:00 149.9 cm [facility] Body weight 2023-06-16 17:10:00 88.95 kg [facility] BMI 2023-06-16 17:10:00 39.59 kg/m2 [facility] Systolic blood pressure 2023-06-17 20:17:00 148 mm[Hg] [facility] Diastolic blood pressure 2023-06-17 20:17:00 92 mm[Hg] [facility] Heart rate 2023-06-17 20:17:00 76 /min [facility] Respiratory rate 2023-06-17 20:17:00 19 /min [facility] Oxygen saturation in Arterial blood by Pulse oximetry 2023-06-17 20:17:00 100 /min [facility] Body temperature 2023-06-17 19:14:00 35.44 Ifrah [facility] Body height 2023-06-16 17:10:00 149.9 cm [facility] Body weight 2023-06-16 17:10:00 88.95 kg [facility] BMI 2023-06-16 17:10:00 39.59 kg/m2 [facility] Systolic blood pressure 2023-06-16 15:32:00 162 mm[Hg] [facility] Diastolic blood pressure 2023-06-16 15:32:00 98 mm[Hg] [facility] Heart rate 2023-06-16 14:48:00 81 /min [facility] Body temperature 2023-06-16 14:46:00 35.83 Ifrah [facility] Respiratory rate 2023-06-16 14:46:00 18 /min [facility] Body height 2023-06-16 14:46:00 149.9 cm [facility] Body weight 2023-06-16 14:46:00 88.565 kg [facility] BMI 2023-06-16 14:46:00 39.44 kg/m2 [facility] Systolic blood pressure 2023-06-10 15:09:00 140 mm[Hg] [facility] Diastolic blood pressure 2023-06-10 15:09:00 77 mm[Hg] [facility] Heart rate 2023-06-10 14:35:00 82 /min [facility] Body temperature 2023-06-10 14:35:00 35.5 Ifrah [facility] Respiratory rate 2023-06-10 14:35:00 18 /min [facility] Body height 2023-06-10 14:35:00 149.9 cm [facility] Body weight 2023-06-10 14:35:00 87.363 kg [facility] BMI 2023-06-10 14:35:00 38.90 kg/m2 [facility] Systolic blood pressure 2023-06-08 20:10:00 157 mm[Hg] [facility] Diastolic blood pressure 2023-06-08 20:10:00 95 mm[Hg] [facility] Heart rate 2023-06-08 20:10:00 68 /min [facility] Respiratory rate 2023-06-08 20:10:00 20 /min [facility] Oxygen saturation in Arterial blood by Pulse oximetry 2023-06-08 20:10:00 100 /min [facility] Body temperature 2023-06-08 18:45:00 36.56 Ifrah [facility] Body height 2023-06-08 18:45:00 149.9 cm [facility] Systolic blood pressure 2023-06-08 14:55:00 150 mm[Hg] [facility] Diastolic blood pressure 2023-06-08 14:55:00 100 mm[Hg] [facility] Heart rate 2023-06-08 14:44:00 67 /min [facility] Body temperature 2023-06-08 14:44:00 36 Ifrah [facility] Respiratory rate 2023-06-08 14:44:00 18 /min [facility] Body height 2023-06-08 14:44:00 149.9 cm [facility] Body weight 2023-06-08 14:44:00 87.363 kg [facility] BMI 2023-06-08 14:44:00 38.90 kg/m2 [facility] Systolic blood pressure 2023-06-04 05:30:00 119 mm[Hg] [facility] Diastolic blood pressure 2023-06-04 05:30:00 86 mm[Hg] [facility] Heart rate 2023-06-04 05:30:00 64 /min [facility] Oxygen saturation in Arterial blood by Pulse oximetry 2023-06-04 05:30:00 97 /min [facility] Respiratory rate 2023-06-04 05:00:00 16 /min [facility] Body temperature 2023-06-04 03:25:00 36.56 Ifrah [facility] Body height 2023-06-04 03:25:00 149.9 cm [facility] Body weight 2023-06-04 03:25:00 88.225 kg [facility] BMI 2023-06-04 03:25:00 39.28 kg/m2 [facility] Systolic blood pressure 2023-06-02 17:07:00 140 mm[Hg] [facility] Diastolic blood pressure 2023-06-02 17:07:00 88 mm[Hg] [facility] Heart rate 2023-06-02 17:07:00 70 /min [facility] Body temperature 2023-06-02 17:07:00 36.56 Ifrah [facility] Respiratory rate 2023-06-02 17:07:00 16 /min [facility] Oxygen saturation in Arterial blood by Pulse oximetry 2023-06-02 17:07:00 98 /min [facility] Body height 2023-06-01 22:52:00 149.9 cm [facility] Body weight 2023-06-01 22:52:00 88.587 kg [facility] BMI 2023-06-01 22:52:00 39.45 kg/m2 [facility] Systolic blood pressure 2023-06-01 19:23:00 144 mm[Hg] [facility] Diastolic blood pressure 2023-06-01 19:23:00 106 mm[Hg] [facility] Heart rate 2023-06-01 19:23:00 70 /min [facility] Body temperature 2023-06-01 19:20:00 36.33 Ifrah [facility] Respiratory rate 2023-06-01 19:20:00 18 /min [facility] Body height 2023-06-01 19:20:00 149.9 cm [facility] Body weight 2023-06-01 19:20:00 87.629 kg [facility] BMI 2023-06-01 19:20:00 39.02 kg/m2 [facility] Heart rate 2023-05-19 04:15:00 66 /min [facility] Oxygen saturation in Arterial blood by Pulse oximetry 2023-05-19 04:15:00 99 /min [facility] Systolic blood pressure 2023-05-19 04:00:00 118 mm[Hg] [facility] Diastolic blood pressure 2023-05-19 04:00:00 77 mm[Hg] [facility] Body temperature 2023-05-19 02:41:00 36.78 Ifrah [facility] Respiratory rate 2023-05-19 02:21:00 18 /min [facility] Body height 2023-05-19 02:21:00 149.9 cm [facility] Body weight 2023-05-19 02:21:00 86.32 kg [facility] BMI 2023-05-19 02:21:00 38.44 kg/m2 [facility] Systolic blood pressure 2023-05-17 19:30:00 127 mm[Hg] [facility] Diastolic blood pressure 2023-05-17 19:30:00 84 mm[Hg] [facility] Heart rate 2023-05-17 19:30:00 82 /min [facility] Oxygen saturation in Arterial blood by Pulse oximetry 2023-05-17 19:30:00 99 /min [facility] Body temperature 2023-05-17 18:39:00 36.61 Ifrah [facility] Respiratory rate 2023-05-17 18:39:00 18 /min [facility] Body height 2023-05-17 18:39:00 149.9 cm [facility] Body weight 2023-05-17 18:39:00 84.188 kg [facility] BMI 2023-05-17 18:39:00 37.47 kg/m2 [facility] Systolic blood pressure 2023-05-17 15:32:00 140 mm[Hg] [facility] Diastolic blood pressure 2023-05-17 15:32:00 95 mm[Hg] [facility] Heart rate 2023-05-17 14:55:00 68 /min [facility] Body temperature 2023-05-17 14:55:00 36 Ifrah [facility] Respiratory rate 2023-05-17 14:55:00 18 /min [facility] Body height 2023-05-17 14:55:00 149.9 cm [facility] Body weight 2023-05-17 14:55:00 84.188 kg [facility] BMI 2023-05-17 14:55:00 37.49 kg/m2 [facility] Systolic blood pressure 2023-05-03 14:37:00 124 mm[Hg] [facility] Diastolic blood pressure 2023-05-03 14:37:00 89 mm[Hg] [facility] Heart rate 2023-05-03 14:37:00 77 /min [facility] Body temperature 2023-05-03 14:37:00 36.39 Ifrah [facility] Respiratory rate 2023-05-03 14:37:00 18 /min [facility] Body height 2023-05-03 14:37:00 149.9 cm [facility] Body weight 2023-05-03 14:37:00 83.689 kg [facility] BMI 2023-05-03 14:37:00 37.26 kg/m2 [facility] Systolic blood pressure 2023-04-21 16:44:00 132 mm[Hg] [facility] Diastolic blood pressure 2023-04-21 16:44:00 90 mm[Hg] [facility] Heart rate 2023-04-21 16:44:00 74 /min [facility] Body temperature 2023-04-21 16:44:00 35.83 Ifrah [facility] Respiratory rate 2023-04-21 16:44:00 18 /min [facility] Body height 2023-04-21 16:44:00 149.9 cm [facility] Body weight 2023-04-21 16:44:00 82.918 kg [facility] BMI 2023-04-21 16:44:00 36.92 kg/m2 [facility] Heart rate 2023-04-15 21:30:00 77 /min [facility] Oxygen saturation in Arterial blood by Pulse oximetry 2023-04-15 21:30:00 99 /min [facility] Systolic blood pressure 2023-04-15 19:15:00 112 mm[Hg] [facility] Diastolic blood pressure 2023-04-15 19:15:00 80 mm[Hg] [facility] Body temperature 2023-04-15 19:15:00 37 Ifrah [facility] Respiratory rate 2023-04-15 19:15:00 18 /min [facility] Body height 2023-04-15 18:43:00 149.9 cm [facility] Body weight 2023-04-15 18:43:00 82.101 kg [facility] BMI 2023-04-15 18:43:00 36.56 kg/m2 [facility] Systolic blood pressure 2023-03-14 14:29:00 131 mm[Hg] [facility] Diastolic blood pressure 2023-03-14 14:29:00 88 mm[Hg] [facility] Heart rate 2023-03-14 14:29:00 81 /min [facility] Body temperature 2023-03-14 14:29:00 36.33 Ifrah [facility] Respiratory rate 2023-03-14 14:29:00 18 /min [facility] Body height 2023-03-14 14:29:00 149.9 cm [facility] Body weight 2023-03-14 14:29:00 82.356 kg [facility] BMI 2023-03-14 14:29:00 36.67 kg/m2 [facility] Systolic blood pressure 2023-02-08 00:30:00 125 mm[Hg] [facility] Diastolic blood pressure 2023-02-08 00:30:00 89 mm[Hg] [facility] Heart rate 2023-02-08 00:30:00 113 /min [facility] Body temperature 2023-02-08 00:30:00 38.11 Ifrah [facility] Respiratory rate 2023-02-08 00:30:00 17 /min [facility] Body height 2023-02-08 00:30:00 149.9 cm [facility] Body weight 2023-02-08 00:30:00 83.008 kg [facility] BMI 2023-02-08 00:30:00 36.96 kg/m2 [facility] Oxygen saturation in Arterial blood by Pulse oximetry 2023-02-08 00:30:00 97 /min [facility] Systolic blood pressure 2023-01-27 20:56:00 125 mm[Hg] [facility] Diastolic blood pressure 2023-01-27 20:56:00 69 mm[Hg] [facility] Heart rate 2023-01-27 20:56:00 68 /min [facility] Body temperature 2023-01-27 20:56:00 36.44 Ifrah [facility] Respiratory rate 2023-01-27 20:56:00 20 /min [facility] Body height 2023-01-27 20:56:00 149.9 cm [facility] Body weight 2023-01-27 20:56:00 83.008 kg [facility] BMI 2023-01-27 20:56:00 36.96 kg/m2 [facility] Systolic blood pressure 2022-12-28 15:30:00 130 mm[Hg] [facility] Diastolic blood pressure 2022-12-28 15:30:00 80 mm[Hg] [facility] Heart rate 2022-12-28 15:30:00 69 /min [facility] Body temperature 2022-12-28 15:30:00 35.94 Ifrah [facility] Respiratory rate 2022-12-28 15:30:00 18 /min [facility] Body height 2022-12-28 15:30:00 149.9 cm [facility] Body weight 2022-12-28 15:30:00 83.961 kg [facility] BMI 2022-12-28 15:30:00 37.39 kg/m2 [facility] Systolic blood pressure 2022-11-30 19:22:00 133 mm[Hg] [facility] Diastolic blood pressure 2022-11-30 19:22:00 84 mm[Hg] [facility] Heart rate 2022-11-30 19:22:00 68 /min [facility] Body temperature 2022-11-30 19:22:00 36.06 Ifrah [facility] Respiratory rate 2022-11-30 19:22:00 18 /min [facility] Body height 2022-11-30 19:22:00 149.9 cm [facility] Body weight 2022-11-30 19:22:00 85.367 kg [facility] BMI 2022-11-30 19:22:00 38.01 kg/m2 [facility] Systolic blood pressure 2021-07-08 05:52:00 143 mm[Hg] [facility] Diastolic blood pressure 2021-07-08 05:52:00 106 mm[Hg] [facility] Heart rate 2021-07-08 05:52:00 87 /min [facility] Body temperature 2021-07-08 05:52:00 37.28 Ifrah [facility] Respiratory rate 2021-07-08 05:52:00 20 /min [facility] Body height 2021-07-08 05:52:00 149.9 cm [facility] Body weight 2021-07-08 05:52:00 88.724 kg [facility] BMI 2021-07-08 05:52:00 39.51 kg/m2 [facility] Oxygen saturation in Arterial blood by Pulse oximetry 2021-07-08 05:52:00 98 /min [facility] Procedures Procedure Date / Time Performed Performing Clinician Source GARDASIL 9 (HPV 9V) VACCINE 2023-07-08 15:06:40 Adonay Champagne [facility] DME/SUPPLY JUSTIFICATION 2023-07-07 06:01:00 Doc tor Unassigned, [place] [facility] CBC WITH DIFF 2023-06-18 10:26:00 Chastity Velásquez [facility] CBC WITH DIFF 2023-06-18 10:26:00 Chastity Velásquez [facility] VENOUS CORD GAS 2023-06-17 17:03:00 Vivien Greenwood Mai [facility] VENOUS CORD GAS 2023-06-17 17:03:00 Vivien Greenwood Mai [facility] SECTION 2023-06-17 16:00:00 [facility] 2023-06-17 16:00:00 [facility] 2023-06-17 16:00:00 [facility] T[facility] 2023-06-17 16:00:00 Hallie Sosa [facility] CENTRAL NEURAXIAL BLOCK 2023-06-17 00:40:00 Melly Hirsch [facility] RESPIRATORY PANEL BY PCR 2023-06-16 20:59:00 Jenusaiti s, [facility] COVID-19 (ID NOW RAPID TESTING) 2023-06-16 20:59:00 Jenusaitis, [facility] LAB ONLY COVID INTERPRETATION 2023-06-16 20:59:00 Jenusaitis, [facility] RESPIRATORY PANEL BY PCR 2023-06-16 20:59:00 Jenusaiti s, [facility] COVID-19 (ID NOW RAPID TESTING) 2023-06-16 20:59:00 Jenusaitis, [facility] LAB ONLY COVID INTERPRETATION 2023-06-16 20:59:00 Jenusaitis, [facility] HB ABO GROUPING 2023-06-16 19:59:00 Vivien Greenwood Mai [facility] RHO (D) IMMUNE GLOBULIN 2023-06-16 19:59:00 El-Eishy, Alfarooq Y [facility] HB ABO GROUPING 2023-06-16 19:59:00 Vivien Greenwood Mai [facility] RHO (D) IMMUNE GLOBULIN 2023-06-16 19:59:00 El-Eishy, Alfarooq Y [facility] SGOT (ASPARTATE AMINO TRANSFER) 2023-06-16 17:39:00 Bin [facility] CREATININE 2023-06-16 17:39:00 Sulemapriti [facility] ALANINE AMINO TRANSFERASE(SGPT 2023-06-16 17:39:[facility] LACTATE DEHYDROGENASE 2023-06-16 17:39:00 Bin [facility] URIC ACID 2023-06-16 17:39:00 Bin [facility] CBC WITH DIFF 2023-06-16 17:39:00 Bin [facility] HEPATITIS B SURFACE ANTIGEN 2023-06-16 17:39:00 Frnaces Greenwood Mai [facility] HIV 1/2 AG-AB WITH REFLEX 2023-06-16 17:39:00 Frances Sanchez Mai [facility] SYPHILIS IGG/IGM 2023-06-16 17:39:00 Warren Greenwood Mai [facility] SGOT (ASPARTATE AMINO TRANSFER) 2023-06-16 17:39:00 Bin [facility] CREATININE 2023-06-16 17:39:00 Sulemapriti [facility] ALANINE AMINO TRANSFERASE(SGPT 2023-06-16 17:39:00 Sulemapriti [facility] LACTATE DEHYDROGENASE 2023-06-16 17:39:00 Sulemapriti [facility] URIC ACID 2023-06-16 17:39:00 Bin [facility] CBC WITH DIFF 2023-06-16 17:39:00 Bin [facility] HEPATITIS B SURFACE ANTIGEN 2023-06-16 17:39:00 Frances Greenwood Mai [facility] HIV 1/2 AG-AB WITH REFLEX 2023-06-16 17:39:00 Frances Sanchez Mai [facility] SYPHILIS IGG/IGM 2023-06-16 17:39:00 Warren Greenwood Mai [facility] NON-STRESS TEST 2023-06-16 16:57:51 Maurice Harvey [facility] POCT URINALYSIS 2023-06-16 14:47:00 Adonay Champagne [facility] HOSPITAL ADMISSION 2023-06-16 06:01:00 Doctor Un assigned, [place] [facility] DME/SUPPLY JUSTIFICATION 2023-06-14 06:01:00 Doc tor Unassigned, [place] [facility] DME/SUPPLY JUSTIFICATION 2023-06-14 06:01:00 Doc tor Unassigned, [place] [facility] NON-STRESS TEST 2023-06-10 15:39:22 Mikhail Champagne [facility] NON-STRESS TEST 2023-06-10 15:30:19 Mikhail Champagne [facility] POCT URINALYSIS 2023-06-10 14:38:00 Adonay Champagne [facility] SECOND AND THIRD TRIMESTER ULTRASOUND 2023-06-09 15:34:00 Adonay Champagne [facility] SGOT (ASPARTATE AMINO TRANSFER) 2023-06-08 19:06:00 Luna [facility] CREATININE 2023-06-08 19:06:00 Luna [facility] ALANINE AMINO TRANSFERASE(SGPT 2023-06-08 19:06:00 Luna [facility] LACTATE DEHYDROGENASE 2023-06-08 19:06:00 Luna [facility] URIC ACID 2023-06-08 19:06:00 Luna [facility] CBC WITH DIFF 2023-06-08 19:06:[address] [facility] URINALYSIS 2023-06-08 19:06:00 Luna [facility] PROTEIN CREAT RATIO URINE RANDOM 2023-06-08 19:06:00 Luna carlos alberto [facility] NON-STRESS TEST 2023-06-08 15:52:30 Mikhail Champagne [facility] POCT URINALYSIS 2023-06-08 14:46:00 Adonay Champagne [facility] CONSENT/REFUSAL FOR DIAGNOSIS AND TREATMENT 2023-06-08 06:01:00 Doctor Unassigned, [place] [facility] CONSENT/REFUSAL FOR DIAGNOSIS AND TREATMENT 2023-06-03 06:01:00 Doctor Unassigned, [place] [facility] HB ABO GROUPING 2023-06-02 03:23:00 Nohelia Fabian [facility] SGOT (ASPARTATE AMINO TRANSFER) 2023-06-02 00:20:00 Nola Delgado [facility] CREATININE 2023-06-02 00:20:00 Nola Delgado [facility] ALANINE AMINO TRANSFERASE(SGPT 2023-06-02 00:20:00 Nola Delgado [facility] LACTATE DEHYDROGENASE 2023-06-02 00:20:00 Sindy Delgado [facility] URIC ACID 2023-06-02 00:20:00 Nola Delgado [facility] CBC WITH DIFF 2023-06-02 00:20:00 Nola Delgado [facility] URINALYSIS 2023-06-02 00:20:00 Nola Delgado [facility] PROTEIN CREAT RATIO URINE RANDOM 2023-06-02 00:20:00 Nola Delgado [facility] POCT URINALYSIS 2023-06-01 19:21:00 Adonay Champagne [facility] HOSPITAL ADMISSION 2023-06-01 06:01:00 Doctor Un assigned, [place] [facility] DME/SUPPLY JUSTIFICATION 2023-05-25 06:01:00 Doc tor Unassigned, [place] [facility] NOTICE OF PRIVACY PRACTICES 2023-05-19 02:14:04 Doctor Unassigned, [place] [facility] CONSENT/REFUSAL FOR DIAGNOSIS AND TREATMENT 2023-05-19 02:13:46 Doctor Unassigned, [place] [facility] POCT URINALYSIS 2023-05-17 14:58:00 Adonay Champagne [facility] SECOND AND THIRD TRIMESTER ULTRASOUND 2023-05-17 14:38:00 Adonay Champagne [facility] ONCOLOGY CONSENTS 2023-05-17 06:01:00 Doctor Tonya ssigned, [place] [facility] TDAP VACCINE, >11 YRS, IM 2023-05-03 14:51:52 Jennifer Taveras [facility] POCT URINALYSIS 2023-05-03 14:39:00 Adonay Champagne [facility] POCT URINALYSIS 2023-05-03 14:37:00 Adonay Champagne [facility] STERILIZATION CONSENT FORM 2023-05-03 06:01:00 Doctor Unassigned, [place] [facility] POCT URINALYSIS 2023-04-21 16:46:00 Adonay Champagne [facility] URINALYSIS 2023-04-15 19:50:00 Adum, [facility] ADC CLC OR LCC ONLY - WET PREP 2023-04-15 19:50:00 Adum, Amanda Dacosta [facility] ASSIGNMENT OF BENEFITS 2023-04-15 18:39:07 Docto r Unassigned, [place] [facility] CONSENT/REFUSAL FOR DIAGNOSIS AND TREATMENT 2023-04-15 18:37:57 Doctor Unassigned, [place] [facility] SECOND AND THIRD TRIMESTER ULTRASOUND 2023-04-07 14:07:00 Adonay Champagne [facility] POCT URINALYSIS 2023-03-14 14:30:00 Adonay Champagne [facility] SECOND AND THIRD TRIMESTER ULTRASOUND 2023-02-24 16:23:00 Adonay Champagne [facility] ASSIGNMENT OF BENEFITS 2023-02-08 01:11:05 Docto r Unassigned, [place] [facility] NOTICE OF PRIVACY PRACTICES 2023-02-08 00:30:37 Doctor Unassigned, [place] [facility] CONSENT/REFUSAL FOR DIAGNOSIS AND TREATMENT 2023-02-08 00:30:03 Doctor Unassigned, [place] [facility] POCT URINALYSIS 2023-01-27 00:00:00 Adonay Champagne [facility] NIPT-[id number] GENOTYPING - SEQUENOM 2023-01-25 05:01:00 Doctor Unassigned, [place] [facility] FIRST TRIMESTER TRISOMY SCRN 2023-01-13 14:50:00 Adonay Champange [facility] FIRST TRIMESTER ULTRASOUND 2023-01-13 14:36:00 Adonay Champagne [facility] POCT URINALYSIS 2022-12-28 15:33:00 Adonay Chamapgne [facility] POCT TEST 2022-11-30 19:12:00 Stevie Champagne [facility] POCT URINALYSIS W/O SPECIFIC GRAVITY 2022-11-30 19:12:00 Adonay Champagne [facility] ASSIGNMENT OF BENEFITS 2022-11-30 18:41:56 Docto r Unassigned, [place] [facility] RAPID STREP SCREEN FOR GROUP A 2021-07-08 06:17:00 Ramin Nice [facility] COVID-19 (ID NOW RAPID TESTING) 2021-07-08 06:17:00 Ramin Nice [facility] URINALYSIS 2021-07-08 06:13:00 [facility] RAPID INFLUENZA A/B 2021-07-08 06:13:00 Maria Eugenia Nice [facility] Encounters Start Date/Time End Date/Time Encounter Type Admission Type Attending [facility] Facility Care Department Encounter ID Source 2024-02-08 14:00:00 2024-02-08 14:00:00 Outpatient R [facility] [id number] [facility] 2024-01-26 00:00:00 2024-01-26 13:32:17 Letter (Out) Nurse, Anil Rmchmelly Rgv Cprit Obgyn Nurse, Anil Rmchp Rgv Cprit Obgyn [facility] CONTROL PANEL ASSEMBLER [facility] .[id number] 350.1.13.10 [id number] [id number] [facility] 2024-01-26 13:00:00 2024-01-26 13:00:00 Outpatient R JENNIFER STANTON [facility] [id number] [facility] 2024-01-10 00:00:00 2024-01-10 13:24:07 Letter (Out) Nurse, Anil Rmchp Rgv Cprit Obgyn [facility] CONTROL PANEL ASSEMBLER [facility] ..840.114 350.1.13.10 [id number] [id number] [facility] 2023-11-10 09:30:00 2023-11-10 09:30:00 Outpatient R [facility] [id number] [facility] 2023-08-19 08:00:00 2023-08-19 09:08:56 Outpatient R JENNIFER STANTON [facility] [id number] [facility] 2023-08-19 08:00:00 2023-08-19 09:08:56 Office Visit Jennifer Stanton [facility] CONTROL PANEL ASSEM[employer]ER [facility] ..114 350.1.13.10 [id number] [id number] [facility] 2023-07-08 09:00:00 2023-07-08 09:28:23 Outpatient R ADONAY CHAMPAGNE [facility] [id number] [facility] 2023-07-08 09:00:00 2023-07-08 09:28:23 Routine Visit Adonay Champagne [facility] CONTROL PANEL ASSEM[employer]ER [facility] 1..114 350.1.13.10 4.2.7.2.686 [id number] [facility] 2023-07-07 00:00:00 2023-07-07 00:00:00 Orders Only Doctor Unassigned, [place] [facility] ..114 350.1.13.10 [id number] [id number] [facility] 2023-06-30 00:00:00 2023-06-30 00:00:00 Patient Secure Msg Adonay Champagne [facility] [employer] PANEL ASSEM[employer]ER [facility] 1.0.114 350.1.13.10 4.2.7.2.686 [id number] [facility] 2023-06-26 00:00:00 2023-06-26 00:00:00 Encounter [facility] [id number] 350.1.13.10 4.2.7.2.686 [id number] [facility] 2023-06-24 08:30:00 2023-06-24 09:13:19 Outpatient R JENNIFER STANTON [facility] [id number] [facility] 2023-06-24 08:30:00 2023-06-24 09:13:19 Nurse Visit Visit, Ang-Rmchp Nurse Jennifer Stanton [facility] CONTR[employer] PANEL ASSEM[employer]ER [facility] 1..840.114 350.1.13.10 4.2.7.2.686 [id number] [facility] 2023-06-23 14:30:00 2023-06-23 14:30:00 Outpatient R [facility] [id number] [facility] 2023-06-21 00:00:00 2023-06-21 00:00:00 Telephone Adonay Champagne [facility] CONTROL PANEL ASSEM[employer]ER [facility] 1..840.114 350.1.13.10 4.2.7.2.686 [id number] [facility] 2023-06-16 10:58:00 2023-06-20 12:59:00 Inpatient P NATALIO BURROWS [facility] [id number] [facility] 2023-06-16 10:58:00 2023-06-20 12:59:00 Hospital Encounter Natalio Burrows [facility] [id number] 350.1.13.10 4.2.7.2.686 [id number] [facility] 2023-06-20 08:30:00 2023-06-20 08:30:00 Outpatient R ADONAY CHAMPAGNE [facility] [id number] [facility] 2023-06-20 00:00:00 2023-06-20 00:00:00 Abstract Adonay Champagne [facility] CONTROL PANEL ASSEMBLER [facility] [place] 1.2.840.114 350.1.13.10 4.2.7.2.686 [id number] 107 [id number] [facility] 2023-06-20 00:00:00 2023-06-20 00:00:00 Telephone Adonay Champagne [facility] CONTROL PANEL ASSEMBLER [facility] [place] 1.2.840.114 350.1.13.10 4.2.7.2.686 [id number] [facility] 2023-06-20 00:00:00 2023-06-20 00:00:00 Abstract Adonay Champagne [facility] CONTROL PANEL ASSEMBLER [facility] 1.2.840.114 350.1.13.10 4.2.7.2.686 [id number] 107 [id number] [facility] 2023-06-17 13:15:00 2023-06-17 15:28:00 Surgery Hallie Sosa [facility] 1.2.840.114 350.1.13.10 4.2.7.2.686 [id number] [id number] [facility] 2023-06-17 00:00:00 2023-06-17 00:00:00 Refill Adonay Champagne [facility] CONTROL PANEL ASSEMBLER [facility] 1.2.840.114 350.1.13.10 4.2.7.2.686 [id number] 107 [id number] [facility] 2023-06-16 18:40:00 2023-06-16 18:40:00 Anesthesia Event Henrry Clements [facility] 1.2.840.114 350.1.13.10 4.2.7.2.686 [id number] [facility] 2023-06-16 08:15:00 2023-06-16 09:48:51 Outpatient R LATESHA HARVEY [facility] [id number] [facility] 2023-06-16 08:15:00 2023-06-16 09:48:51 Routine Visit Risk, Ang-Rmchp-N p/High Adonay Champagne Kristin N [facility] CONTROL PANEL ASSEMBLER [facility] [place] .114 350.1.13.10 4.2.7.2.686 [id number] 107 [id number] [facility] 2023-06-16 00:00:00 2023-06-16 00:00:00 Orders Only Doctor Unassigned, [place] [facility] .114 350.1.13.10 4.2.7.2.686 [id number] [facility] 2023-06-10 08:30:00 2023-06-10 09:29:55 Outpatient R ADONAY CHAMPAGNE [facility] [id number] [facility] 2023-06-10 08:30:00 2023-06-10 09:29:55 Routine Visit Adonay Champagne [facility] CONTROL PANEL ASSEMBLER [facility] [place] .114 350.1.13.10 4.2.7.2.686 [id number] 107 [id number] [facility] 2023-06-09 09:15:00 2023-06-09 09:30:19 Outpatient P JOHN NAVAS [facility] [id number] [facility] 2023-06-09 09:15:00 2023-06-09 09:30:19 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 Ikuvsethgiaruna [facility] CONTROL PANEL ASSEMBLER [facility] 1.114 350.1.13.10 4.2.7.2.686 [id number] [facility] 2023-06-08 12:27:00 2023-06-08 14:34:00 Outpatient P NATALIO BURROWS [facility] [id number] [facility] 2023-06-08 12:27:00 2023-06-08 14:34:00 Hospital Encounter Natalio Burrows [facility] 1.840.114 350.1.13.10 4.2.7.2.686 [id number] [facility] 2023-06-08 08:30:00 2023-06-08 09:41:06 Outpatient R ADONAY CHAMPAGNE [facility] [id number] [facility] 2023-06-08 08:30:00 2023-06-08 09:41:06 Routine Visit Adonay Champagne [facility] CONTROL PANEL ASSEMBLER [facility] 1.840.114 350.1.13.10 4.2.7.2.686 [id number] [facility] 2023-06-03 20:48:00 2023-06-04 00:01:00 Outpatient P LASHON PRADO SHANNON [facility] [id number] [facility] 2023-06-03 20:48:00 2023-06-04 00:01:00 Hospital Encounter Simon Dunn Shannon M [facility] 1.840.114 350.1.13.10 4.2.7.2.686 [id number] [facility] 2023-06-03 00:00:00 2023-06-03 00:00:00 Orders Only Doctor Unassigned, [place] [facility] 1.840.114 350.1.13.10 4.2.7.2.686 [id number] [facility] 2023-06-01 16:42:00 2023-06-02 12:30:00 Hospital Encounter Natalio Burrows Chasey Ikuvbogie [facility] 1.840.114 350.1.13.10 4.2.7.2.686 [id number] [facility] 2023-06-01 16:42:00 2023-06-02 12:30:00 Outpatient P JOHN NAVAS [facility] [id number] [facility] 2023-06-01 13:00:00 2023-06-01 14:12:51 Routine Visit Adonay Champagne [facility] CONTROL PANEL ASSEMBLER [facility] 1.0.114 350.1.13.10 4.2.7.2.686 [id number] [facility] 2023-06-01 13:00:00 2023-06-01 14:12:51 Outpatient R ADONAY CHAMPAGNE [facility] [id number] [facility] 2023-06-01 00:00:00 2023-06-01 00:00:00 Orders Only Doctor Unassigned, [place] [facility] 1.20.114 350.1.13.10 4.2.7.2.686 [id number] [facility] 2023-05-27 00:00:00 2023-05-27 00:00:00 Nurse Triage Gabbi Velazquez [facility] 1.2.114 350.1.13.10 4.2.7.2.686 [id number] [id number] [facility] 2023-05-25 00:00:00 2023-05-25 00:00:00 Orders Only Doctor Unassigned, [place] [facility] 1.2840.114 350.1.13.10 4.2.7.2.686 [id number] [facility] 2023-05-23 00:00:00 2023-05-23 00:00:00 Telephone Adonay Champagne [facility] CONTROL PANEL ASSEMBLER [facility] [place] 1.2.840.114 350.1.13.10 4.2.7.2.686 [id number] 107 [id number] [facility] 2023-05-23 00:00:00 2023-05-23 00:00:00 Telephone Adonay Champagne [facility] CONTROL PANEL ASSEMBLER [facility] [place] 1.2.840.114 350.1.13.10 4.2.7.2.686 [id number] 107 [id number] [facility] 2023 00:00:00 2023 00:00:00 Telephone Adonay Champagne [facility] CONTROL PANEL ASSEMBLER [facility] [place] 1.2.840.114 350.1.13.10 4.2.7.2.686 [id number] 107 [id number] [facility] 2023 00:00:00 2023 00:00:00 Abstract Adonay Champagne [facility] CONTROL PANEL ASSEMBLER [facility] [place] 1.2.840.114 350.1.13.10 4.2.7.2.686 [id number] 107 [id number] [facility] 2023-05-19 00:00:00 2023-05-19 00:00:00 Telephone Adonay Champagne [facility] CONTROL PANEL ASSEMBLER [facility] [place] 1.2.840.114 350.1.13.10 4.2.7.2.686 [id number] [facility] 2023-05-18 20:25:00 2023-05-18 22:34:00 Outpatient X VITALY LOPEZ [facility] [id number] [facility] 2023-05-18 20:25:00 2023-05-18 22:34:00 Emergency Vitaly Lopez [facility] 1.2.840.114 350.1.13.10 4.2.7.2.686 [id number] [id number] [facility] 2023-05-18 00:00:00 2023-05-18 00:00:00 Patient Secure Msg Adonay Champagne [facility] CONTROL PANEL ASSEMBLER [facility] [place] 1.2.840.114 350.1.13.10 4.2.7.2.686 [id number] [facility] 2023-05-18 00:00:00 2023-05-18 00:00:00 Nurse Triage Negra Cowart [facility] 1.0.114 350.1.13.10 4.2.7.2.686 [id number] [id number] [facility] 2023-05-18 00:00:00 2023-05-18 00:00:00 Orders Only Doctor Unassigned, [place] [facility] 1.840.114 350.1.13.10 4.2.7.2.686 [id number] [facility] 2023-05-17 09:00:00 2023-05-17 14:51:24 Outpatient R ADONAY CHAMPAGNE [facility] [id number] [facility] 2023-05-17 12:24:00 2023-05-17 14:08:00 Outpatient P HALLIE SOSA [facility] [id number] [facility] 2023-05-17 12:24:00 2023-05-17 14:08:00 Hospital Encounter Saad [facility] 1.840.114 350.1.13.10 4.2.7.2.686 [id number] [facility] 2023-05-17 09:00:00 2023-05-17 09:15:00 Routine Visit Adonay Champagne [facility] CONTROL PANEL ASSEMBLER [facility] [place] 1.2.840.114 350.1.13.10 4.2.7.2.686 [id number] 107 [id number] [facility] 2023-05-17 08:00:00 2023-05-17 08:37:48 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 Ultrasound, Ernestina Rinaldi [facility] CONTROL PANEL ASSEMBLER [facility] [place] 1.2.840.114 350.1.13.10 4.2.7.2.686 [id number] [facility] 2023-05-17 00:00:00 2023-05-17 00:00:00 Patient Secure Msg Adonay Champagne [facility] 1.840.114 350.1.13.10 4.2.7.2.686 [id number] 107 [id number] [facility] 2023-05-03 09:30:00 2023-05-03 09:30:00 Routine Visit Jennifer Stanton [facility] 1.0.114 350.1.13.10 4.2.7.2.686 [id number] 107 [id number] [facility] 2023-05-03 09:30:00 2023-05-03 09:10:11 Outpatient R JENNIFER STANTON [facility] [id number] [facility] 2023-05-03 00:00:00 2023-05-03 00:00:00 Orders Only Doctor Unassigned, [place] [facility] 1.840.114 350.1.13.10 4.2.7.2.686 [id number] [facility] 2023-05-01 00:00:00 2023-05-01 00:00:00 Patient Secure Msg Adonay Champagne [facility] CONTROL PANEL ASSEMBLER [facility] [place] 1.840.114 350.1.13.10 4.2.7.2.686 [id number] [facility] 2023-04-29 00:00:00 2023-04-29 00:00:00 Telephone Jennifer Stanton [facility] CONTROL PANEL ASSEMBLER [facility] [place] ..114 350.1.13.10 4.2.7.2.686 [id number] 107 [id number] [facility] 2023-04-28 08:30:00 2023-04-28 09:37:08 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 Lab, Ang-Rmchp Jennifer Stanton [facility] CONTROL PANEL ASSEMBLER [facility] [place] ..114 350.1.13.10 4.2.7.2.686 [id number] 107 [id number] [facility] 2023-04-28 08:30:00 2023-04-28 08:30:00 Outpatient R JENNIFER STANTON [facility] [id number] [facility] 2023-04-21 10:45:00 2023-04-21 11:12:45 Outpatient R ADONAY CHAMPAGNE [facility] [id number] [facility] 2023-04-21 10:45:00 2023-04-21 11:12:45 Routine Visit Adonay Champagne [facility] CONTROL PANEL ASSEMBLER [facility] [place] ..114 350.1.13.10 4.2.7.2.686 [id number] 107 [id number] [facility] 2023-04-20 00:00:00 2023-04-20 00:00:00 Abstract Adonay Champagne [facility] CONTROL PANEL ASSEMBLER [facility] [place] ..114 350.1.13.10 4.2.7.2.686 [id number] 107 [id number] [facility] 2023-04-18 00:00:00 2023-04-18 00:00:00 Telephone [facility] 1..114 350.1.13.10 4.2.7.2.686 [id number] [facility] 2023-04-17 00:00:00 2023-04-17 00:00:00 Case Management CjAmanda lemus [facility] 1..840.114 350.1.13.10 4.2.7.2.686 [id number] [facility] 2023-04-15 13:48:00 2023-04-15 16:35:00 Outpatient X AMANDA SCHREIBER [facility] [id number] [facility] 2023-04-15 13:48:00 2023-04-15 16:35:00 Emergency HeavenJatin, Maurice Meneses Adallan, Amanda Dacosta [facility] 1..840.114 350.1.13.10 4.2.7.2.686 [id number] [facility] 2023-04-15 00:00:00 2023-04-15 00:00:00 Patient Secure Msg Adonay Champagne [facility] CONTROL PANEL ASSEMBLER [facility] 1..840.114 350.1.13.10 4.2.7.2.686 [id number] 107 [id number] [facility] 2023-04-11 09:45:00 2023-04-11 09:45:00 Outpatient R ADONAY CHAMPAGNE [facility] [id number] [facility] 2023-04-07 10:30:00 2023-04-07 10:30:00 Outpatient P [facility] [id number] [facility] 2023-04-07 09:00:00 2023-04-07 09:17:57 Outpatient P JOHN NAVAS [facility] [id number] [facility] 2023-04-07 09:00:00 2023-04-07 09:17:57 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 Ultrasound, Yaneth Jonessergio John Guerrero [facility] CONTROL PANEL ASSEMBLER [facility] HE[facility] 1.2.840.114 350.1.13.10 4.2.7.2.686 [id number] [facility] 2023-03-24 00:00:00 2023-03-24 00:00:00 Patient Secure Adonay Antoine [facility] CONTROL PANEL ASSEMBLER [facility] HE[facility] 1.2.840.114 350.1.13.10 4.2.7.2.686 [id number] [facility] 2023-03-17 00:00:00 2023-03-17 00:00:00 Telephone Teena Whaley [facility] CONTROL PANEL ASSEMBLER [facility] [place] 1.2.840.114 350.1.13.10 4.2.7.2.686 [id number] [facility] 2023-03-16 00:00:00 2023-03-16 00:00:00 [facility] 1.[facility].840.114 350.1.13.10 4.2.7.2.686 [id number] [facility] 2023-03-14 09:30:00 2023-03-14 10:20:11 Outpatient TEENA OLIVEIRA [facility] [id number] [facility] 2023-03-14 09:30:00 2023-03-14 10:20:11 Routine Visit Provider, Akilachmelly Whaley [facility] CONTROL PANEL ASSEMBLER [facility] [place] 1.2.840.114 350.1.13.10 4.2.7.2.686 [id number] 107 [id number] [facility] 2023-02-28 16:00:00 2023-02-28 16:00:00 Outpatient ADONAY KOCH [facility] [id number] [facility] 2023-02-24 10:45:00 2023-02-24 11:25:49 Outpatient P TEETEE WHIPPLE [facility] [id number] [facility] 2023-02-24 10:45:00 2023-02-24 11:25:49 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 2, [facility] Room Teetee Whipple [facility] CONTROL PANEL ASSEMBLER [facility] HEALTH [facility] 1.2840.114 350.1.13.10 4.2.7.2.686 [id number] [facility] 2023-02-24 00:00:00 2023-02-24 00:00:00 Abstract Adonay Champagne [facility] CONTROL PANEL ASSEMBLER [facility] HE[facility] 1.2840.114 350.1.13.10 4.2.7.2.686 [id number] 107 [id number] [facility] 2023-02-18 10:45:00 2023-02-18 10:45:00 Outpatient R ADONAY CHAMPAGNE [facility] [id number] [facility] 2023-02-07 19:40:00 2023-02-07 20:17:00 Emergency X RAMIN NICE [facility] ERT [id number] [facility] 2023-02-07 19:40:00 2023-02-07 20:17:00 Emergency Ramin Nice [facility] 1.2840.114 350.1.13.10 4.2.7.2.686 [id number] [facility] 2023-02-07 00:00:00 2023-02-07 00:00:00 Letter (Out) Negra Cowart [facility] 1.84.114 350.1.13.10 4.2.7.2.686 [id number] [facility] 2023-02-07 00:00:00 2023-02-07 00:00:00 Patient Secure Msg Adonay Champagne [facility] CONTROL PANEL ASSEMBLER [facility] 1.2840.114 350.1.13.10 4.2.7.2.686 [id number] [facility] 2023-02-03 00:00:00 2023-02-03 00:00:00 Telephone Adonay Champagne [facility] CONTROL PANEL ASSEMBLER [facility] 1.2840.114 350.1.13.10 4.2.7.2.686 [id number] [facility] 2023-02-01 00:00:00 2023-02-01 00:00:00 Telephone Adonay Champagne [facility] CONTROL PANEL ASSEMBLER [facility] 1.0.114 350.1.13.10 4.2.7.2.686 [id number] 107 [id number] [facility] 2023-01-27 16:00:00 2023-01-27 16:24:25 Outpatient R ADONAY CHAMPAGNE [facility] [id number] [facility] 2023-01-27 16:00:00 2023-01-27 16:24:25 Routine Visit Adonay Champagne [facility] CONTROL PANEL ASSEMBLER [facility] 1.0.114 350.1.13.10 4.2.7.2.686 [id number] 107 [id number] [facility] 2023-01-25 00:00:00 2023-01-25 00:00:00 Orders Only Doctor Unassigned, [place] [facility] 1.840.114 350.1.13.10 4.2.7.2.686 [id number] [facility] 2023-01-14 00:00:00 2023-01-14 00:00:00 Telephone Adonay Champagne [facility] CONTROL PANEL ASSEMBLER [facility] 1.2.840.114 350.1.13.10 4.2.7.2.686 [id number] 107 [id number] [facility] 2023-01-14 00:00:00 2023-01-14 00:00:00 Abstract Adonay Champagne [facility] CONTROL PANEL ASSEMBLER [facility] 1.2.840.114 350.1.13.10 4.2.7.2.686 [id number] 107 [id number] [facility] 2023-01-13 10:00:00 2023-01-13 10:00:00 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 Lab, kAilaErnestina Maza [facility] CONTROL PANEL ASSEMBLER [facility] 1.2840.114 350.1.13.10 4.2.7.2.686 [id number] 107 [id number] [facility] 2023-01-13 09:15:00 2023-01-13 09:34:11 Outpatient P ERNESTINA ARCE [facility] [id number] [facility] 2023-01-13 09:15:00 2023-01-13 09:34:11 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 Ultrasound, RafiqErnestina Rocha [facility] CONTROL PANEL ASSEMBLER [facility] 1.840.114 350.1.13.10 4.2.7.2.686 [id number] [facility] 2023-01-13 00:00:00 2023-01-13 00:00:00 Case Management Adonay Champagne [facility] CONTROL PANEL ASSEMBLER [facility] 1.2840.114 350.1.13.10 4.2.7.2.686 [id number] 107 [id number] [facility] 2022-12-31 00:00:00 2022-12-31 00:00:00 Telephone Adonay Champagne [facility] CONTROL PANEL ASSEMBLER [facility] 1.2.840.114 350.1.13.10 4.2.7.2.686 [id number] [facility] 2022-12-28 10:30:00 2022-12-28 11:00:17 Outpatient R ADONAY CHAMPAGNE [facility] [id number] [facility] 2022-12-28 10:30:00 2022-12-28 11:00:17 Routine Visit Ihsan Adonay C [facility] CONTROL PANEL ASSEMBLER [facility] 1.2.840.114 350.1.13.10 4.2.7.2.686 [id number] 107 [id number] [facility] 2022-12-03 00:00:00 2022-12-03 00:00:00 Telephone JavonfreddieAdonay baez [facility] CONTROL PANEL ASSEMBLER [facility] 1.2.840.114 350.1.13.10 4.2.7.2.686 [id number] 107 [id number] [facility] 2022-12-03 00:00:00 2022-12-03 00:00:00 Patient Secure Msg Adonay Champagne Lorri [facility] CONTROL PANEL ASSEMBLER [facility] 1.2.840.114 350.1.13.10 4.2.7.2.686 [id number] 107 [id number] [facility] 2022-12-02 10:30:00 2022-12-02 10:30:00 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 Lab, Ang-Rmchp Adonay Champagne Lorri [facility] CONTROL PANEL ASSEMBLER [facility] 1.2.840.114 350.1.13.10 4.2.7.2.686 [id number] [facility] 2022-12-02 09:30:00 2022-12-02 09:30:00 Outpatient R [facility] [id number] [facility] 2022-12-02 10:30:00 2022-12-02 08:32:06 Outpatient R ADONAY CHAMPAGNE [facility] [id number] [facility] 2022-11-30 13:45:00 2022-11-30 15:29:31 Initial Visit Adonay Champagne Lorri [facility] CONTROL PANEL ASSEMBLER [facility] CH[facility] HEALTH [facility] 1.2.840.114 350.1.13.10 4.2.7.2.686 [id number] 107 [id number] [facility] 2022-11-30 13:15:00 2022-11-30 13:15:00 Outpatient R ADONAY CHAMPAGNE [facility] [id number] [facility] 2022-11-30 00:00:00 2022-11-30 00:00:00 Orders Only Doctor Unassigned, [place] [facility] 1..840.114 350.1.13.10 4.2.7.2.686 [id number] [facility] 2022-11-13 09:31:09 2022-11-13 09:31:09 Outpatient [facility] [id number] Justus 2022-08-25 10:46:55 2022-08-25 10:46:55 Outpatient [facility] [id number] Jerome 2021-07-07 23:56:00 2021-07-08 01:21:00 Emergency [facility] 1..840.114 350.1.13.10 4.2.7.2.686 [id number] [facility] 2021-07-07 23:56:00 2021-07-08 01:21:00 Emergency X RAMIN NICE [facility] ERT [id number] [facility] Results Test Description Test Time Test Comments Results Result Co mments [facility] I[facility] [id number] 20:56:54* Test Item Value Reference Range Interpretation Comme nts RHIG CANDIDATE? (test code = 5188) No- see comment Patient is not a candidate for RhIg- Patient is Rh Positive.Performed at [facility] Laboratory Services - [facility] Blood [address] [id number] Free: [phone] No. [id number] [facility] ONLY - SYPHILIS [id number] 18:02:55* Test Item Value Reference Range Interpretation Comme nts Syphilis IgG/IgM (test code = 47603-0) Non-reactive Non-reactive ERIS (test code = ERIS) Non-reactive - No serologic evidence of T. pallidum infection. Cannot exclude incubating or early syphilis. Submit a second specimen in 2-4 weeks if syphilis is clinically suspected. Equivocal - Further testing to follow. Reactive - Further testing to follow. Lab Interpretation (test code = 49669-1) Normal [facility] ONLY - SYPHILIS [id number] 18:02:55* Test Item Value Reference Range Interpretation Comme nts Syphilis IgG/IgM (test code = 39698-8) Non-reactive Non-reactive ERIS (test code = ERIS) Non-reactive - No serologic evidence of T. pallidum infection. Cannot exclude incubating or early syphilis. Submit a second specimen in 2-4 weeks if syphilis is clinically suspected. Equivocal - Further testing to follow. Reactive - Further testing to follow. Lab Interpretation (test code = 79802-2) [facility] [id number] 17:12:15* Test Item Value Reference Range Interpretation Comme nts VENOUS BASE EXCESS, CORD (test code = 8139798508) -5.5 mEq/L VENOUS PH, CORD (test code = 2465924557) 7.26 7.25-7.45 VENOUS PC02, CORD (test code = 8928965336) 51 See_Comment H [Automated me ssage] The system which generated this result transmitted reference range: 27 - 49 mmHg. The reference range was not used to interpret this result as normal/abnormal. VENOUS PO2, CORD (test code = 9610709648) 19 See_Comment [Automated me ssage] The system which generated this result transmitted reference range: 17 - 41 mmHg. The reference range was not used to interpret this result as normal/abnormal. VENOUS BICARBONATE, CORD (test code = 4460243755) 22 See_Comment [Automa roslyn message] The system which generated this result transmitted reference range: 12 - 29 mEq/L. The reference range was not used to interpret this result as normal/abnormal. Lab Interpretation (test code = 77880-4) [facility]normal [facility] [id number] 17:12:15* Test Item Value Reference Range Interpretation Comme nts VENOUS BASE EXCESS, CORD (test code = 1019908106) -5.5 mEq/L VENOUS PH, CORD (test code = 9996158058) 7.26 7.25-7.45 VENOUS PC02, CORD (test code = 9689769950) 51 See_Comment H [Automated me ssage] The system which generated this result transmitted reference range: 27 - 49 mmHg. The reference range was not used to interpret this result as normal/abnormal. VENOUS PO2, CORD (test code = 6410405936) 19 See_Comment [Automated me ssage] The system which generated this result transmitted reference range: 17 - 41 mmHg. The reference range was not used to interpret this result as normal/abnormal. VENOUS BICARBONATE, CORD (test code = 6019940014) 22 See_Comment [Automa roslyn message] The system which generated this result transmitted reference range: 12 - 29 mEq/L. The reference range was not used to interpret this result as normal/abnormal. Lab Interpretation (test code = 53632-0) Abnormal [facility] Ngxdb3566-94-98 00:40:00 Jamaal Pierce DO ? ? 06/16/2023 ?7:11 PM Central Neuraxial Block Date/Time: 06/16/2023 6:40 PM Performed by: Indigo Hirsch, MDAuthorized by: Henrry Liz MD ?Patient Location: OBReasonfor Block: OB request, Patient request, Labor analgesia, Surgical anesthesia and Post-op pain managementStaff: ?Anesthesiologist: Henrry Phan MD ?Resident/UNIT MANAGER RN: Jamaal Pierce DO ?Performed by: resident/CRNAPreanesthetic Checklist: patient identified, IV checked, risks and benefits explained, monitors and equipment checked, timeout performed, pre-op evaluation, site marked and anesthesia consentProcedure: ?Type of Neuraxial: Epidural ?Epidural Description: 1st attempt ? Sterility Prep cap, drape, gloves, hand hygiene and mask ? ?Sedation Level no sedation ?Patient Position: sitting ?Prep: Betadine and patient draped ? ?Monitoring: heart rate, continuous pulse ox, heartrate / toco and NIBP ?Location: lumbar (1-5) ?Lumbar: L4-L5 ?Approach: midline ? ?Technique: catheter and SHANITA saline ?Guidance with: landmark technique}Epidural/Spinal Rye and/or Catheter: ?Epidural/Spinal Kit: BBraun ?Needle Type: Tuohy ?Needle Gauge: 17 G ?Needle Length: 3.5 in (8.89 cm) ?Needle Insertion Depth: 7 ?Catheter Type: multiport ? ?Catheter Size: 19 G ? ?Catheter at Skin Depth: 12 ?Number of Attempts: 1 ?Test Dose: lidocaine 1.5% with epinephrine 1-to-200,000 and negative ? ?Dose: 5 cc ? ?Catheter Securement Method: surgical tape, Tegaderm, clear occlusive dressing and liquidmedical adhesiveAssessment: ?Block Outcome: a full evaluation is pending and patient tolerated procedure well ? ?Procedure Assessment: patient tolerated procedure well with no complicationsNotes: ? Timeout performed.Patient prepped with betadine x3 and draped. Local anesthetic infiltrated in skin. N eedle inserted to depth of 7cm, attempt x1, negative aspiration x3, test dose given and negative, catheter secured at 12cm, patient laid down and remained HDS. There was no unintentional dural puncture.PCEA pump and button explained, fall precautions given. Settings: 11ml/hr and bolus of 4mL given.Level to be assessed.[facility] 1/2 AG-AB WITH [id number] 22:31:09* Test Item Value Reference Range Interpretation Comme nts HIV Semi-quantitative (test code = 15850-9) 0.09 Negative ERIS (test code = ERIS) Non-reactive for HIV-1 antigen and HIV-1/HIV-2 antibodies. ?No laboratory evidence of HIV infection. ?Repeat in 2-4 weeks if acute HIV infection is suspected. [facility] 1/2 AG-AB WITH [id number] 22:31:09* Test Item Value Reference Range Interpretation Comme nts HIV Semi-quantitative (test code = 94026-7) 0.09 Negative ERIS (test code = ERIS) Non-reactive for HIV-1 antigen and HIV-1/HIV-2 antibodies. ?No laboratory evidence of HIV infection. ?Repeat in 2-4 weeks if acute HIV infection is suspected. [facility] B Surface Dgqsfxq9796-62-23 21:12:53 * Test Item Value Reference Range Interpretation Comme nts HBsAg Semi-Quantitative (joaquim t code = 5195-3) 0.07 Negative [facility] B Surface Ltiidol2415-88-08 21:12:53 * Test Item Value Reference Range Interpretation Comme nts HBsAg Semi-Quantitative (joaquim t code = 5195-3) 0.07 Negative [facility] and Screen - ONCE PSSZ8790-03-26 20:21:00 * Test Item Value Reference Range Interpretation Comme nts ABO & RH (test code = 20) A POSITIVE IAT (test code = 1185) Negative [facility] and Screen - ONCE [id number] 20:21:00 * Test Item Value Reference Range Interpretation Comme nts ABO & RH (test code = 20) A POSITIVE IAT (test code = 1185) Negative [facility] HospitalU[facility] Acid Acavv6853-16-19 18:18:39* Test Item Value Reference Range Interpretation Comme [facility] URIC ACID (test code = 6153828065) 5.3 mg/dL 2.9-6.0 Lab Interpretation (test cod e = 69295-6) Normal [facility] Enwptyccck4182-61-83 18:18:39* Test Item Value Reference Range Interpretation Comme [facility] CREATININE (test code = 7376071881) 0.52 mg/dL 0.50-1.04 eGFR (test code = 13415-1) 128.4 mL/min/1.73m2 CKD-EPI eGFR (20 21). Assuming creatinine has been stable day-to-day for at least three months, the eGFR indicates Category G1 (>= 90 mL/min/1.73 m2) [facility] (Asparate Amino Transfer)2023-06-16 18:18:39* Test Item Value Reference Range Interpretation Comme [facility] AST(SGOT) (test code = 9327474838) 20 U/L 13-40 Lab Interpretation (test cod e = 96282-5) Normal [facility] HospitalAlanine Amino Transferase (SGPT)2023-06-16 18:18:39* Test Item Value Reference Range Interpretation Comme nts ALTv (test code = 1742-6) 14 U/L 5-35 Lab Interpretation (test cod e = 50507-3) Normal [facility] HospitalUric Acid Qbzuz2931-04-86 18:18:39* Test Item Value Reference Range Interpretation Comme nts URIC ACID (test code = 6892093610) 5.3 mg/dL 2.9-6.0 Lab Interpretation (test cod e = 52105-6) Normal [facility] HospitalSerum Tfafvdpwtf4746-99-30 18:18:39* Test Item Value Reference Range Interpretation Comme [facility] CREATININE (test code = 9759768213) 0.52 mg/dL 0.50-1.04 eGFR (test code = 59537-5) 128.4 mL/min/1.73m2 CKD-EPI eGFR (20 21). Assuming creatinine has been stable day-to-day for at least three months, the eGFR indicates Category G1 (>= 90 mL/min/1.73 m2) [facility] (Asparate Amino Transfer)2023-06-16 18:18:39* Test Item Value Reference Range Interpretation Comme [facility] AST(SGOT) (test code = 9598712854) 20 U/L 13-40 Lab Interpretation (test cod e = 37657-8) Normal [facility] HospitalAlanine Amino Transferase (SGPT)2023-06-16 18:18:39* Test Item Value Reference Range Interpretation Comme nts ALTv (test code = 1742-6) 14 U/L 5-35 Lab Interpretation (test cod e = 74491-1) Normal [facility] HospitalLactate Zvljnqswlzxhe8821-68-57 18:18:18* Test Item Value Reference Range Interpretation Comme nts LDH (test code = 5004798609) 169 U/L 120-246 Lab Interpretation (test cod e = 54483-3) Normal [facility] HospitalLactate Iqafgmwpujxvf6173-82-91 18:18:18* Test Item Value Reference Range Interpretation Comme nts LDH (test code = 0188972563) 169 U/L 120-246 Lab Interpretation (test cod e = 06409-8) Normal [facility] with Uptvsthbjlvy2383-84-03 17:52:30* Test Item Value Reference Range Interpretation Comme nts WBC (test code = 6690-2) 7.90 See_Comment [Automated messa ge] The system which generated this result transmitted reference range: 4.30 - 11.10 10*3/?L. The reference range was not used to interpret this result as normal/abnormal. RBC (test code = 789-8) 3.03 See_Comment L [Automated messa ge] The system which generated this result transmitted reference range: 3.93 - 5.25 10*6/?L. The reference range was not used to interpret this result as normal/abnormal. HGB (test code = 718-7) 9.9 g/dL 11.6-15.0 L HCT (test code = 4544-3) 28.4 % 35.7-45.2 L MCV (test code = 787-2) 93.7 fL 80.6-95.5 MCH (test code = 785-6) 32.7 pg 25.9-32.8 MCHC (test code = 786-4) 34.9 g/dL 31.6-35.1 RDW-SD (test code = 01911-2) 42.5 fL 39.0-49.9 RDW-CV (test code = 788-0) 12.5 % 12.0-15.5 PLT (test code = 777-3) 261 See_Comment [Automated messa ge] The system which generated this result transmitted reference range: 166 - 358 10*3/?L. The reference range was not used to interpret this result as normal/abnormal. MPV (test code = 38584-0) 10.8 fL 9.5-12.9 NRBC/100 WBC (test code = 3784762897) 0.0 See_Comment [Automated me ssage] The system which generated this result transmitted reference range: 0.0 - 10.0 /100 WBCs. The reference range was not used to interpret this result as normal/abnormal. NRBC x10^3 (test code = 3212449437) See_Comment [Automated messa ge] The system which generated this result transmitted reference range: 10*3/?L. The reference range was not used to interpret this result as normal/abnormal. GRAN MAT (NEUT) % (test code = 770-8) 69.4 % IMM GRAN % (test code = 8940608975) 0.60 % LYMPH % (test code = 736-9) 24.6 % MONO % (test code = 5905-5) 3.8 % EOS % (test code = 713-8) 1.3 % BASO % (test code = 706-2) 0.3 % GRAN MAT x10^3(ANC) (test code = 1305038930) 5.49 10*3/uL 1.88-7.09 IMM GRAN x10^3 (test code = 0326104186) 0.05 10*3/uL 0.00-0.06 LYMPH x10^3 (test code = 731-0) 1.94 10*3/uL 1.32-3.29 MONO x10^3 (test code = 742-7) 0.30 10*3/uL 0.33-0.92 L EOS x10^3 (test code = 711-2) 0.10 10*3/uL 0.03-0.39 BASO x10^3 (test code = 704-7) 0.01-0.07 Lab Interpretation (test code = 91632-8) Abnormal [facility] with Ytqanxpktmlh8575-80-04 17:52:30* Test Item Value Reference Range Interpretation Comme nts WBC (test code = 6690-2) 7.90 See_Comment [Automated messa ge] The system which generated this result transmitted reference range: 4.30 - 11.10 10*3/?L. The reference range was not used to interpret this result as normal/abnormal. RBC (test code = 789-8) 3.03 See_Comment L [Automated messa ge] The system which generated this result transmitted reference range: 3.93 - 5.25 10*6/?L. The reference range was not used to interpret this result as normal/abnormal. HGB (test code = 718-7) 9.9 g/dL 11.6-15.0 L HCT (test code = 4544-3) 28.4 % 35.7-45.2 L MCV (test code = 787-2) 93.7 fL 80.6-95.5 MCH (test code = 785-6) 32.7 pg 25.9-32.8 MCHC (test code = 786-4) 34.9 g/dL 31.6-35.1 RDW-SD (test code = 39920-7) 42.5 fL 39.0-49.9 RDW-CV (test code = 788-0) 12.5 % 12.0-15.5 PLT (test code = 777-3) 261 See_Comment [Automated messa ge] The system which generated this result transmitted reference range: 166 - 358 10*3/?L. The reference range was not used to interpret this result as normal/abnormal. MPV (test code = 43969-8) 10.8 fL 9.5-12.9 NRBC/100 WBC (test code = 6526255049) 0.0 See_Comment [Automated CueSongs ssage] The system which generated this result transmitted reference range: 0.0 - 10.0 /100 WBCs. The reference range was not used to interpret this result as normal/abnormal. NRBC x10^3 (test code = 5939887083) See_Comment [Automated messa ge] The system which generated this result transmitted reference range: 10*3/?L. The reference range was not used to interpret this result as normal/abnormal. GRAN MAT (NEUT) % (test code = 770-8) 69.4 % IMM GRAN % (test code = 3109432381) 0.60 % LYMPH % (test code = 736-9) 24.6 % MONO % (test code = 5905-5) 3.8 % EOS % (test code = 713-8) 1.3 % BASO % (test code = 706-2) 0.3 % GRAN MAT x10^3(ANC) (test code = 7886259163) 5.49 10*3/uL 1.88-7.09 IMM GRAN x10^3 (test code = 7592139942) 0.05 10*3/uL 0.00-0.06 LYMPH x10^3 (test code = 731-0) 1.94 10*3/uL 1.32-3.29 MONO x10^3 (test code = 742-7) 0.30 10*3/uL 0.33-0.92 L EOS x10^3 (test code = 711-2) 0.10 10*3/uL 0.03-0.39 BASO x10^3 (test code = 704-7) 0.01-0.07 Lab Interpretation (test code = 11858-7) Abnormal [facility] URINALYSIS W SPECIFIC QEHRQGB6790-75-30 14:47:00* Test Item Value Reference Range Interpretation Comme nts POCT U SP GRAV (test code = 3255) . 1.005-1.025 POCT PH U (test code = 3254) 6 mg/dl 5-8 POCT U LEUK EST (test code = 3263) Trace Negative - Negative POCT U NIT (test code = 3262) Neg Negative - Negati ve POCT U PROT (test code = 3259) 2+ Negative - Negat will POCT U GLU (test code = 3256) Nml Negative - Negati ve POCT U KETONE (test code = 3258) None Negative - Neg ative POCT U UROBILI (test code = 3260) . 0.2-1 POCT U BILI (test code = 3261) . Negative - Negat will POCT U BLD (test code = 3257) Trace Negative - Negati ve POCT U COLOR (test code = 3266) . POCT U APPEAR (test code = 3267) ... [facility] acute hospital URINALYSIS W SPECIFIC JZVBBBW4425-81-56 14:47:00* Test Item Value Reference Range Interpretation Comme nts POCT U SP GRAV (test code = 3255) . 1.005-1.025 POCT PH U (test code = 3254) 6 mg/dl 5-8 POCT U LEUK EST (test code = 3263) Trace Negative - Negative POCT U NIT (test code = 3262) Neg Negative - Negati ve POCT U PROT (test code = 3259) 2+ Negative - Negat will POCT U GLU (test code = 3256) Nml Negative - Negati ve POCT U KETONE (test code = 3258) None Negative - Neg ative POCT U UROBILI (test code = 3260) . 0.2-1 POCT U BILI (test code = 3261) . Negative - Negat will POCT U BLD (test code = 3257) Trace Negative - Negati ve POCT U COLOR (test code = 3266) . POCT U APPEAR (test code = 3267) ... [facility] SPECIFIC JIHOXMA5573-78-80 14:38:00* Test Item Value Reference Range Interpretation Comme nts POCT U SP GRAV (test code = 3255) . 1.005-1.025 POCT PH U (test code = 3254) . 5-8 POCT U LEUK EST (test code = 3263) . Negative - N egative POCT U NIT (test code = 3262) . Negative - Negati ve POCT U PROT (test code = 3259) 2+ Negative - Negat will POCT U GLU (test code = 3256) neg Negative - Negati ve POCT U KETONE (test code = 3258) . Negative - Neg ative POCT U UROBILI (test code = 3260) . 0.2-1 POCT U BILI (test code = 3261) . Negative - Negat will POCT U BLD (test code = 3257) . Negative - Negati ve POCT U COLOR (test code = 3266) . POCT U APPEAR (test code = 3267) . [facility] HospitalU[facility] Acid Noeio0694-00-29 19:52:47* Test Item Value Reference Range Interpretation Comme [facility] URIC ACID (test code = 1465712833) 4.7 mg/dL 2.9-6.0 Lab Interpretation (test cod e = 28951-8) Normal [facility] (Asparate Amino Transfer)2023-06-08 19:52:47* Test Item Value Reference Range Interpretation Comme [facility] AST(SGOT) (test code = 8388653282) 34 U/L 13-40 Slight hemolysis Lab Interpretation (test cod e = 32638-6) Normal [facility] Ovnxyuvvbz9945-61-02 19:52:46* Test Item Value Reference Range Interpretation Comme [facility] CREATININE (test code = 3390577083) 0.54 mg/dL 0.50-1.04 eGFR (test code = 14446-5) 127.2 mL/min/1.73m2 CKD-EPI eGFR (20 21). Assuming creatinine has been stable day-to-day for at least three months, the eGFR indicates Category G1 (>= 90 mL/min/1.73 m2) [facility] HospitalAl[facility] Amino Transferase (SGPT)2023-06-08 19:52:46* Test Item Value Reference Range Interpretation Comme nts ALTv (test code = 1742-6) 15 U/L 5-35 Lab Interpretation (test cod e = 79825-9) Normal [facility] HospitalLactate Ingatmcvycyqf6435-15-76 19:51:24* Test Item Value Reference Range Interpretation Comme nts LDH (test code = 5864250229) 217 U/L 120-246 Lab Interpretation (test cod e = 70729-4) Normal [facility] HospitalCBC with Absubenfklhr5703-61-34 19:27:39* Test Item Value Reference Range Interpretation Comme nts WBC (test code = 6690-2) 8.16 See_Comment [Automated comScore] The system which generated this result transmitted reference range: 4.30 - 11.10 10*3/?L. The reference range was not used to interpret this result as normal/abnormal. RBC (test code = 789-8) 3.07 See_Comment L [Automated [employer]] The system which generated this result transmitted reference range: 3.93 - 5.25 10*6/?L. The reference range was not used to interpret this result as normal/abnormal. HGB (test code = 718-7) 10.3 g/dL 11.6-15.0 L HCT (test code = 4544-3) 29.0 % 35.7-45.2 L MCV (test code = 787-2) 94.5 fL 80.6-95.5 MCH (test code = 785-6) 33.6 pg 25.9-32.8 H MCHC (test code = 786-4) 35.5 g/dL 31.6-35.1 H RDW-SD (test code = 11019-0) 43.7 fL 39.0-49.9 RDW-CV (test code = 788-0) 12.7 % 12.0-15.5 PLT (test code = 777-3) 281 See_Comment [Automated messa ge] The system which generated this result transmitted reference range: 166 - 358 10*3/?L. The reference range was not used to interpret this result as normal/abnormal. MPV (test code = 53868-7) 10.8 fL 9.5-12.9 NRBC/100 WBC (test code = 1283707566) 0.0 See_Comment [Automated me ssage] The system which generated this result transmitted reference range: 0.0 - 10.0 /100 WBCs. The reference range was not used to interpret this result as normal/abnormal. NRBC x10^3 (test code = 6647194970) See_Comment [Automated messa ge] The system which generated this result transmitted reference range: 10*3/?L. The reference range was not used to interpret this result as normal/abnormal. GRAN MAT (NEUT) % (test code = 770-8) 71.2 % IMM GRAN % (test code = 5473452058) 0.50 % LYMPH % (test code = 736-9) 23.2 % MONO % (test code = 5905-5) 3.3 % EOS % (test code = 713-8) 1.6 % BASO % (test code = 706-2) 0.2 % GRAN MAT x10^3(ANC) (test code = 6865508530) 5.81 10*3/uL 1.88-7.09 IMM GRAN x10^3 (test code = 5436200248) 0.04 10*3/uL 0.00-0.06 LYMPH x10^3 (test code = 731-0) 1.89 10*3/uL 1.32-3.29 MONO x10^3 (test code = 742-7) 0.27 10*3/uL 0.33-0.92 L EOS x10^3 (test code = 711-2) 0.13 10*3/uL 0.03-0.39 BASO x10^3 (test code = 704-7) 0.01-0.07 Lab Interpretation (test code = 16283-6) Abnormal [facility] acute hospital URINALYSIS W SPECIFIC OMVWYSY6387-45-43 14:46:00* Test Item Value Reference Range Interpretation Comme nts POCT U SP GRAV (test code = 3255) . 1.005-1.025 POCT PH U (test code = 3254) . 5-8 POCT U LEUK EST (test code = 3263) . Negative - N egative POCT U NIT (test code = 3262) . Negative - Negati ve POCT U PROT (test code = 3259) 2+ Negative - Negat will POCT U GLU (test code = 3256) neg Negative - Negati ve POCT U KETONE (test code = 3258) . Negative - Neg ative POCT U UROBILI (test code = 3260) . 0.2-1 POCT U BILI (test code = 3261) . Negative - Negat will POCT U BLD (test code = 3257) . Negative - Negati ve POCT U COLOR (test code = 3266) . POCT U APPEAR (test code = 3267) . [facility] SPECIFIC YGSJZKY1571-57-32 14:46:00* Test Item Value Reference Range Interpretation Comme nts POCT U SP GRAV (test code = 3255) . 1.005-1.025 POCT PH U (test code = 3254) . 5-8 POCT U LEUK EST (test code = 3263) . Negative - N egative POCT U NIT (test code = 3262) . Negative - Negati ve POCT U PROT (test code = 3259) 2+ Negative - Negat will POCT U GLU (test code = 3256) neg Negative - Negati ve POCT U KETONE (test code = 3258) . Negative - Neg ative POCT U UROBILI (test code = 3260) . 0.2-1 POCT U BILI (test code = 3261) . Negative - Negat will POCT U BLD (test code = 3257) . Negative - Negati ve POCT U COLOR (test code = 3266) . POCT U APPEAR (test code = 3267) . [facility] - STAT Odkcpzq1458-51-61 03:27:00* Test Item Value Reference Range Interpretation Comme nts ABO & RH (test code = 20) A POSITIVE IAT (test code = 1185) Negative [facility]CBC with Dpdywxyyxlbq8029-10-57 01:55:26* Test Item Value Reference Range Interpretation Comme nts WBC (test code = 6690-2) 7.88 See_Comment [Automated messa ge] The system which generated this result transmitted reference range: 4.30 - 11.10 10*3/?L. The reference range was not used to interpret this result as normal/abnormal. RBC (test code = 789-8) 2.91 See_Comment L [Automated messa ge] The system which generated this result transmitted reference range: 3.93 - 5.25 10*6/?L. The reference range was not used to interpret this result as normal/abnormal. HGB (test code = 718-7) 9.7 g/dL 11.6-15.0 L HCT (test code = 4544-3) 28.3 % 35.7-45.2 L MCV (test code = 787-2) 97.3 fL 80.6-95.5 H MCH (test code = 785-6) 33.3 pg 25.9-32.8 H MCHC (test code = 786-4) 34.3 g/dL 31.6-35.1 RDW-SD (test code = 87266-4) 44.9 fL 39.0-49.9 RDW-CV (test code = 788-0) 13.0 % 12.0-15.5 PLT (test code = 777-3) 256 See_Comment [Automated messa ge] The system which generated this result transmitted reference range: 166 - 358 10*3/?L. The reference range was not used to interpret this result as normal/abnormal. MPV (test code = 36193-2) 11.1 fL 9.5-12.9 NRBC/100 WBC (test code = 0492451803) 0.0 See_Comment [Automated [employer] ssage] The system which generated this result transmitted reference range: 0.0 - 10.0 /100 WBCs. The reference range was not used to interpret this result as normal/abnormal. NRBC x10^3 (test code = 3289241531) See_Comment [Automated messa ge] The system which generated this result transmitted reference range: 10*3/?L. The reference range was not used to interpret this result as normal/abnormal. GRAN MAT (NEUT) % (test code = 770-8) 64.5 % IMM GRAN % (test code = 3822173431) 0.50 % LYMPH % (test code = 736-9) 28.3 % MONO % (test code = 5905-5) 4.1 % EOS % (test code = 713-8) 2.3 % BASO % (test code = 706-2) 0.3 % GRAN MAT x10^3(ANC) (test code = 5665233607) 5.09 10*3/uL 1.88-7.09 IMM GRAN x10^3 (test code = 1488522565) 0.04 10*3/uL 0.00-0.06 LYMPH x10^3 (test code = 731-0) 2.23 10*3/uL 1.32-3.29 MONO x10^3 (test code = 742-7) 0.32 10*3/uL 0.33-0.92 L EOS x10^3 (test code = 711-2) 0.18 10*3/uL 0.03-0.39 BASO x10^3 (test code = 704-7) 0.01-0.07 Lab Interpretation (test code = 47006-5) Abnormal [facility] HospitalLactate Jiaefxaoyxcps1468-60-43 01:24:41* Test Item Value Reference Range Interpretation Comme [facility] LDH (test code = 8184473938) 152 U/L 120-246 Lab Interpretation (test cod e = 44659-3) Normal [facility] HospitalUric Acid Fconw4478-81-47 01:24:20* Test Item Value Reference Range Interpretation Comme [facility] URIC ACID (test code = 0329974199) 4.3 mg/dL 2.9-6.0 Lab Interpretation (test cod e = 36435-6) Normal [facility] Phyvnoecse0033-87-39 01:24:20* Test Item Value Reference Range Interpretation Comme [facility] CREATININE (test code = 9858840864) 0.58 mg/dL 0.50-1.04 eGFR (test code = 26976-5) 125.0 mL/min/1.73m2 CKD-EPI eGFR (20 21). Assuming creatinine has been stable day-to-day for at least three months, the eGFR indicates Category G1 (>= 90 mL/min/1.73 m2) [facility] (Asparate Amino Transfer)2023-06-02 01:24:20* Test Item Value Reference Range Interpretation Comme nts AST(SGOT) (test code = 8205034031) 23 U/L 13-40 Lab Interpretation (test cod e = 67276-4) Normal [facility] HospitalAlanine Amino Transferase (SGPT)2023-06-02 01:24:20* Test Item Value Reference Range Interpretation Comme nts ALTv (test code = 1742-6) 15 U/L 5-35 Lab Interpretation (test cod e = 61680-4) Normal [facility] HospitalPOCT URINALYSIS W SPECIFIC FBARJKE0897-83-51 19:21:00* Test Item Value Reference Range Interpretation Comme nts POCT U SP GRAV (test code = 3255) . 1.005-1.025 POCT PH U (test code = 3254) . 5-8 POCT U LEUK EST (test code = 3263) . Negative - N egative POCT U NIT (test code = 3262) . Negative - Negati ve POCT U PROT (test code = 3259) 1+ Negative - Negat will POCT U GLU (test code = 3256) Nml Negative - Negati ve POCT U KETONE (test code = 3258) . Negative - Neg ative POCT U UROBILI (test code = 3260) . 0.2-1 POCT U BILI (test code = 3261) . Negative - Negat will POCT U BLD (test code = 3257) . Negative - Negati ve POCT U COLOR (test code = 3266) . POCT U APPEAR (test code = 3267) [facility] [id number] 19:21:00* Test Item Value Reference Range Interpretation Comme nts POCT U SP GRAV (test code = 3255) . 1.005-1.025 POCT PH U (test code = 3254) . 5-8 POCT U LEUK EST (test code = 3263) . Negative - N egative POCT U NIT (test code = 3262) . Negative - Negati ve POCT U PROT (test code = 3259) 1+ Negative - Negat will POCT U GLU (test code = 3256) Nml Negative - Negati ve POCT U KETONE (test code = 3258) . Negative - Neg ative POCT U UROBILI (test code = 3260) . 0.2-1 POCT U BILI (test code = 3261) . Negative - Negat will POCT U BLD (test code = 3257) . Negative - Negati ve POCT U COLOR (test code = 3266) . POCT U APPEAR (test code = 3267) General acute hospital URINALYSIS W SPECIFIC [id number] 14:58:00* Test Item Value Reference Range Interpretation Comme nts POCT U SP GRAV (test code = 3255) . 1.005-1.025 POCT PH U (test code = 3254) . 5-8 POCT U LEUK EST (test code = 3263) . Negative - N egative POCT U NIT (test code = 3262) . Negative - Negati ve POCT U PROT (test code = 3259) trace Negative - Negat will POCT U GLU (test code = 3256) neg Negative - Negati ve POCT U KETONE (test code = 3258) . Negative - Neg ative POCT U UROBILI (test code = 3260) . 0.2-1 POCT U BILI (test code = 3261) . Negative - Negat will POCT U BLD (test code = 3257) . Negative - Negati ve POCT U COLOR (test code = 3266) . POCT U APPEAR (test code = 3267) . General acute hospital URINALYSIS W SPECIFIC [id number] 14:58:00* Test Item Value Reference Range Interpretation Comme nts POCT U SP GRAV (test code = 3255) . 1.005-1.025 POCT PH U (test code = 3254) . 5-8 POCT U LEUK EST (test code = 3263) . Negative - N egative POCT U NIT (test code = 3262) . Negative - Negati ve POCT U PROT (test code = 3259) trace Negative - Negat will POCT U GLU (test code = 3256) neg Negative - Negati ve POCT U KETONE (test code = 3258) . Negative - Neg ative POCT U UROBILI (test code = 3260) . 0.2-1 POCT U BILI (test code = 3261) . Negative - Negat will POCT U BLD (test code = 3257) . Negative - Negati ve POCT U COLOR (test code = 3266) . POCT U APPEAR (test code = 3267) . General acute hospital URINALYSIS W SPECIFIC [id number] 14:58:00* Test Item Value Reference Range Interpretation Comme nts POCT U SP GRAV (test code = 3255) . 1.005-1.025 POCT PH U (test code = 3254) . 5-8 POCT U LEUK EST (test code = 3263) . Negative - N egative POCT U NIT (test code = 3262) . Negative - Negati ve POCT U PROT (test code = 3259) trace Negative - Negat will POCT U GLU (test code = 3256) neg Negative - Negati ve POCT U KETONE (test code = 3258) . Negative - Neg ative POCT U UROBILI (test code = 3260) . 0.2-1 POCT U BILI (test code = 3261) . Negative - Negat will POCT U BLD (test code = 3257) . Negative - Negati ve POCT U COLOR (test code = 3266) . POCT U APPEAR (test code = 3267) . General acute hospital URINALYSIS W SPECIFIC [id number] 14:39:00* Test Item Value Reference Range Interpretation Comme nts POCT U SP GRAV (test code = 3255) . 1.005-1.025 POCT PH U (test code = 3254) 6 mg/dl 5-8 POCT U LEUK EST (test code = 3263) 1+ Negative - Negative POCT U NIT (test code = 3262) neg Negative - Negati ve POCT U PROT (test code = 3259) trace Negative - Negat will POCT U GLU (test code = 3256) neg Negative - Negati ve POCT U KETONE (test code = 3258) neg Negative - Neg ative POCT U UROBILI (test code = 3260) . 0.2-1 POCT U BILI (test code = 3261) . Negative - Negat will POCT U BLD (test code = 3257) neg Negative - Negati ve POCT U COLOR (test code = 3266) . POCT U APPEAR (test code = 3267) . General acute hospital URINALYSIS W SPECIFIC [id number] 14:37:00* Test Item Value Reference Range Interpretation Comme nts POCT U SP GRAV (test code = 3255) . 1.005-1.025 POCT PH U (test code = 3254) 6 mg/dl 5-8 POCT U LEUK EST (test code = 3263) 1+ Negative - Negative POCT U NIT (test code = 3262) Neg Negative - Negati ve POCT U PROT (test code = 3259) Trace Negative - Negat will POCT U GLU (test code = 3256) Nml Negative - Negati ve POCT U KETONE (test code = 3258) None Negative - Neg ative POCT U UROBILI (test code = 3260) . 0.2-1 POCT U BILI (test code = 3261) . Negative - Negat will POCT U BLD (test code = 3257) Trace Negative - Negati ve POCT U COLOR (test code = 3266) . POCT U APPEAR (test code = 3267) . General acute hospital URINALYSIS W SPECIFIC [id number] 16:46:00* Test Item Value Reference Range Interpretation Comme nts POCT U SP GRAV (test code = 3255) . 1.005-1.025 POCT PH U (test code = 3254) . 5-8 POCT U LEUK EST (test code = 3263) . Negative - N egative POCT U NIT (test code = 3262) . Negative - Negati ve POCT U PROT (test code = 3259) trace Negative - Negat will POCT U GLU (test code = 3256) neg Negative - Negati ve POCT U KETONE (test code = 3258) . Negative - Neg ative POCT U UROBILI (test code = 3260) . 0.2-1 POCT U BILI (test code = 3261) . Negative - Negat will POCT U BLD (test code = 3257) . Negative - Negati ve POCT U COLOR (test code = 3266) . POCT U APPEAR (test code = 3267) . General acute hospital URINALYSIS W SPECIFIC [id number] 14:30:00* Test Item Value Reference Range Interpretation Comme nts POCT U SP GRAV (test code = 3255) . 1.005-1.025 POCT PH U (test code = 3254) 7 mg/dl 5-8 POCT U LEUK EST (test code = 3263) Trace Negative - Negative POCT U NIT (test code = 3262) POS Negative - Negati ve POCT U PROT (test code = 3259) 1+ Negative - Negat will POCT U GLU (test code = 3256) Trace Negative - Negati ve POCT U KETONE (test code = 3258) None Negative - Neg ative POCT U UROBILI (test code = 3260) . 0.2-1 POCT U BILI (test code = 3261) . Negative - Negat will POCT U BLD (test code = 3257) Trace Negative - Negati ve POCT U COLOR (test code = 3266) POCT U APPEAR (test code = 3267) General acute hospital URINALYSIS W SPECIFIC [id number] 20:59:00* Test Item Value Reference Range Interpretation Comme nts POCT U SP GRAV (test code = 3255) . 1.005-1.025 POCT PH U (test code = 3254) . 5-8 POCT U LEUK EST (test code = 3263) . Negative - Negative POCT U NIT (test code = 3262) . Negative - Negati ve POCT U PROT (test code = 3259) 1+ Negative - Negat will POCT U GLU (test code = 3256) negative Negative - Negati ve POCT U KETONE (test code = 3258) . Negative - Neg ative POCT U UROBILI (test code = 3260) . 0.2-1 POCT U BILI (test code = 3261) . Negative - Negat will POCT U BLD (test code = 3257) . Negative - Negati ve POCT U COLOR (test code = 3266) . POCT U APPEAR (test code = 3267) . General acute hospital URINALYSIS W SPECIFIC [id number] 20:59:00* Test Item Value Reference Range Interpretation Comme nts POCT U SP GRAV (test code = 3255) . 1.005-1.025 POCT PH U (test code = 3254) . 5-8 POCT U LEUK EST (test code = 3263) . Negative - Negative POCT U NIT (test code = 3262) . Negative - Negati ve POCT U PROT (test code = 3259) 1+ Negative - Negat will POCT U GLU (test code = 3256) negative Negative - Negati ve POCT U KETONE (test code = 3258) . Negative - Neg ative POCT U UROBILI (test code = 3260) . 0.2-1 POCT U BILI (test code = 3261) . Negative - Negat will POCT U BLD (test code = 3257) . Negative - Negati ve POCT U COLOR (test code = 3266) . POCT U APPEAR (test code = 3267) . General acute hospital URINALYSIS W SPECIFIC [id number] 15:33:00* Test Item Value Reference Range Interpretation Comme nts POCT U SP GRAV (test code = 3255) . 1.005-1.025 POCT PH U (test code = 3254) . 5-8 POCT U LEUK EST (test code = 3263) . Negative - N egative POCT U NIT (test code = 3262) . Negative - Negati ve POCT U PROT (test code = 3259) 2+ Negative - Negat will POCT U GLU (test code = 3256) neg Negative - Negati ve POCT U KETONE (test code = 3258) . Negative - Neg ative POCT U UROBILI (test code = 3260) . 0.2-1 POCT U BILI (test code = 3261) . Negative - Negat will POCT U BLD (test code = 3257) . Negative - Negati ve POCT U COLOR (test code = 3266) . POCT U APPEAR (test code = 3267) . General acute hospital URINALYSIS W/O SPECIFIC [id number] 19:13:00* Test Item Value Reference Range Interpretation Comme nts POCT PH U (test code = 3254) 6 mg/dl 5-8 POCT U LEUK EST (test code = 3263) 1+ Negative - Negative POCT U NIT (test code = 3262) pos Negative - Negati ve POCT U PROT (test code = 3259) 2+ Negative - Negat will POCT U GLU (test code = 3256) neg Negative - Negati ve POCT U KETONE (test code = 3258) neg Negative - Neg ative POCT U BLD (test code = 3257) 50 Negative - Negati ve [facility] [id number] 19:13:00* Test Item Value Reference Range Interpretation Comme nts POCT PH U (test code = 3254) 6 mg/dl 5-8 POCT U LEUK EST (test code = 3263) 1+ Negative - Negative POCT U NIT (test code = 3262) pos Negative - Negati ve POCT U PROT (test code = 3259) 2+ Negative - Negat will POCT U GLU (test code = 3256) neg Negative - Negati ve POCT U KETONE (test code = 3258) neg Negative - Neg ative POCT U BLD (test code = 3257) 50 Negative - Negati ve [facility] [id number] 19:12:00* Test Item Value Reference Range Interpretation Comme nts POCT PREG (test code = 1605) Positive On board controls acceptable with C Line (test code = 3574) Yes POCT PREG LOT # (test code = 3575) POCT PREG TEST DATE ( test code = 3576) [facility] [id number] 19:12:00* Test Item Value Reference Range Interpretation Comme nts POCT PREG (test code = 1605) Positive On board controls acceptable with C Line (test code = 3574) Yes POCT PREG LOT # (test code = 3575) POCT PREG TEST DATE ( test code = 3576) [facility] History and Physical Notes Date/Time Note Provider Source 2023-06-16 11:34:38 TRIAGE/L&D HISTORY & PHYSICAL IDENTIFYING DATA Robert Jefferson is 28 year old, /White, 35w0d, female with KATHY 07/21/2023, by Last Menstrual Period. : 1995 Primary Care Physician: Adonay Champagne CHIEF COMPLAINT High BP in clinic HISTORY OF PRESENT ILLNESS Robert Jefferson is a 28 year old at 35w0d who presents from clinic due to elevated BP. Patient denies vaginal bleeding, denies leakage of fluid, denies contractions. Patient denies headache, denies nausea/vomiting, denies RUQ pain, denies visual abnormalities. Endorses normal movement. PAST OBSTETRIC HISTORY OB History Para Term AB Living 3 2 2 0 0 2 SAB IAB Ectopic Multiple Live Births 0 0 0 0 2 # Outcome Date GA Lbr Marshall/2nd Weight Sex Delivery Anes PTL Lv 3 Current 2 Term 07/09/16 37w0d 2770 g M VAGINAL EPI CHET Comments: Maternal Age: 23; :2; Parity:2 Mother's Blood Type:A pos Maternal Serological Test:normal Maternal Group B Strep Screening:negative; Adequate Treatment:not applicable Complications:Maternal Anemia, Maternal PreEclampsia on magnesi 1 Term 04/26/15 39w0d 4309 g M NSVB LOW CHET Complications: Pre-eclampsia PAST MEDICAL HISTORY Problem list: Patient Active Problem List Diagnosis Date Noted 35 weeks gestation of 06/16/2023 Preeclampsia, third trimester 06/01/2023 Obesity (BMI 30-39.9) 05/17/2023 Tubal ligation status 05/03/2023 Declines flu vaccine 05/03/2023 Abnormal maternal glucose tolerance, antepartum 04/29/2023 Anemia of mother in , antepartum 04/29/2023 Recurrent UTI (urinary tract infection) complicating 12/03/2022 Susceptible to varicella (non-immune), currently 12/01/2022 Supervision of high-risk 11/30/2022 Multiparity 11/30/2022 History of pre-eclampsia 11/30/2022 History of depression 11/30/2022 Obesity in 07/08/2016 Operations: Past Surgical History: Procedure Laterality Date CHOLECYSTECTOMY 05/19/2015 TONSILLECTOMY Past Medical History: Diagnosis Date Anemia Anxiety Depression 2020 not on medication at this time, resolved at this time Pre-eclampsia in third trimester 07/08/2016 CURRENT HEALTH STATUS Medications: Current Facility-Administered Medications Medication Dose Route Frequency Last Rate Last Admin calcium gluconate 100 mg/mL (10%) injection 1,000 mg 1,000 mg Slow IV Push PRN - SEE INSTRUCTIONS D5W-LR IV infusion 1,000 mL 1,000 mL IV Infusion CONTINUOUS D5W-LR IV infusion 1,000 mL 1,000 mL IV Infusion TITRATE 125 mL/hr at 06/16/23 1338 1,000 mL at 06/16/23 1338 lactated ringers IV infusion 500 mL 500 mL IV Infusion PRN - SEE INSTRUCTIONS lidocaine 1% (PF) (XYLOCAINE) injection 0.3 mL 0.3 mL Infiltration PRN - SEE INSTRUCTIONS lidocaine 1% (XYLOCAINE) 10 mg/mL (1 %) injection 50 mL 50 mL Infiltration PRN - SEE INSTRUCTIONS magnesium sulfate 4 mEq/mL (50 %) injection 16.24 mEq 2 g Slow IV Push PRN - SEE INSTRUCTIONS magnesium sulfate 4 mEq/mL (50 %) injection 32.48 mEq 4 g Slow IV Push PRN - SEE INSTRUCTIONS magnesium sulfate loading dose from bag 6 g IV Infusion ONCE And magnesium sulfate in water for injection 20 gram/500 mL (4 %) IV infusion 2 g/hr IV Infusion CONTINUOUS oxytocin (PITOCIN) 30 units in NS 500 mL IV infusion 2-40 hector-units/min IV Infusion TITRATE sodium citrate-citric acid (BICITRA) 500-334 mg/5 mL solution 30 mL 30 mL Oral PRE-PROCEDURE ONCE Allergies and drug reactions: Pcn [penicillins] HOME MEDICATIONS Medications Prior to Admission Medication Sig Dispense Refill Last Dose Nitrofurantoin&Nit. Macrocryst (MACROBID) 100 mg capsule Take 1 capsule by mouth in the morning for 30 days. 30 capsule 0 buPROPion XL (WELLBUTRIN XL) 150 mg 24 hr tablet Take 1 tablet by mouth in the morning. 30 tablet 0 SERTraline (ZOLOFT) 50 mg tablet Take 1 tablet by mouth in the morning. 30 tablet 0 Iron Fum & P-FA-Vit B & C No.9 (INTEGRA PLUS) 125 mg iron- 1 mg Cap Take 1 capsule by mouth in the morning. 30 capsule 6 Nitrofurantoin&Nit. Macrocryst 100 mg capsule Take 1 capsule by mouth in the morning and 1 capsule in the evening. 14 capsule 0 multivitamin ( VITAMIN) tablet Take 1 tablet by mouth in the morning. 90 tablet 3 vit no.124/iron/folic ( VITAMIN ORAL) Take by mouth. Taking ondansetron 4 mg disintegrating tablet Take 1 tablet by mouth every 8 (eight) hours as needed for Nausea and Vomiting (N/V). 20 tablet 0 Not Taking SOCIAL HISTORY Tobacco History: Social History Tobacco Use Smoking Status Never Smokeless Tobacco Never Drug History: Social History Substance and Sexual Activity Drug Use No Alcohol History: Social History Substance and Sexual Activity Alcohol Use No Alcohol/week: 0.0 standard drinks of alcohol FAMILY HISTORY Family History Problem Relation Age of Onset Depression Mother Hypertension Mother Asthma Father Arthritis Father Depression Paternal Aunt Breast Cancer Maternal Grandmother Arthritis Paternal Grandfather Diabetes Paternal Grandfather Heart Paternal Grandfather High cholesterol Paternal Grandfather defects NoFHx Colon Cancer NoFHx Ovarian Cancer NoFHx Uterine Cancer NoFHx Cancer NoFHx Genetic NoFHx Mental retardation NoFHx Neurological NoFHx Osteoporosis NoFHx Psychiatry NoFHx REVIEW OF SYSTEMS General: (-) fever, (-) chills Skin: negative HEENT: (-) headache, - change in vision Neck: negative HEME: negative Resp: (-) cough, (-) shortness of breath Cardio: (-) chest pain, (-) palpitations GI: (-) abdominal pain, (-) nausea, (-) vomiting : See HPI Endo: negative Neuro: negative Back: (-) pain NNAMDI: negative Psych: negative VITAL SIGNS BP: (137-166)/(90-101) Temp: [35.8 ?C (96.5 ?F)-36.1 ?C (97 ?F)] Temp source: Axillary (06/16 1115) Pulse: [74-89] Resp: [17-18] SpO2: [98 %-99 %] Height: [149.9 cm (4' 11")-149.9 cm (4' 11.02")] Weight: [88.6 kg (195 lb 4 oz)-89 kg (196 lb 1.6 oz)] BMI (calculated): [39.44-39.59] PHYSICAL EXAMINATIONS General: patient alert and in no acute distress HEENT: symmetric, negative for masses Lungs: unlabored breathing Cardiology: peripheral pulses intact and regular Abdomen: soft, non-tender, non-distended, no liver, spleen or abnormal masses palpated and Gravid Extremities: no clubbing, cyanosis, or edema Neuro: patient moving all extremities, no facial droop : Deferred to FB placement REVIEW OF LABORATORY, PATHOLOGY, AND RADIOLOGY DATA Lab results: Type & Screen Lab Results Component Value Date/Time IABORH A POSITIVE 06/08/2023 01:06 PM IAT Negative 06/08/2023 01:06 PM Serologies Lab Results Component Value Date/Time VZVIGG Equivocal 11/30/2022 03:28 PM RUBG Positive 11/30/2022 03:28 PM SYPIGG Non-reactive 05/17/2023 09:39 AM SYPIGG Nonreactive 07/09/2016 12:30 AM HBSAG Negative 11/30/2022 03:28 PM HBSAG 0.06 11/30/2022 03:28 PM Chlamydia Lab Results Component Value Date/Time VCAA Negative 04/15/2023 02:50 PM Group B Strep Lab Results Component Value Date/Time CGB Negative 07/01/2016 03:14 PM GTT Lab Results Component Value Date/Time GLUF 96 05/03/2023 08:36 AM LHQI1FX 150 05/03/2023 09:35 AM GLU3H 104 05/03/2023 11:35 AM CBC Lab Results Component Value Date/Time HGB 9.9 (L) 06/16/2023 11:39 AM HCT 28.4 (L) 06/16/2023 11:39 AM PLT 261 06/16/2023 11:39 AM Active Hospital Problems Diagnosis Date Noted 35 weeks gestation of 06/16/2023 Preeclampsia, third trimester 06/01/2023 Recurrent UTI (urinary tract infection) complicating 12/03/2022 Pending chloe-still positive Susceptible to varicella (non-immune), currently 12/01/2022 Address pp Supervision of high-risk 11/30/2022 Multiparity 11/30/2022 History of pre-eclampsia 11/30/2022 In both History of depression 11/30/2022 Reports last on meds x1year ago Obesity in 07/08/2016 Resolved Hospital Problems No resolved problems to display. Present on Admission: Obesity in Supervision of high-risk Multiparity History of pre-eclampsia History of depression Susceptible to varicella (non-immune), currently Recurrent UTI (urinary tract infection) complicating Preeclampsia, third trimester 35 weeks gestation of ASSESSMENT AND PLAN Robert Jefferson is a 28 year old at 35w0d by d/u(13) who presents from clinic due to elevated BPs. PreE with severe features - Diagnosed with PreE on 06/01 based on mild ranging BP >4h apart and P/Cr 0.9 - Sent from clinic today for BP of 150-160s/90-100s - BP in arrival to triage: intermittently severe, persisted at 1330, 20 of labetalol was given - Baseline 24hr urine (12/02/22): 320mg protein - Repeat preE labs Recent Labs 06/16/23 1139 HGB 9.9* PLT 261 CREAT 0.52 URICACID 5.3 ALT 14 AST 20 LDH 169 - plan: admit for delivery due to preEwSF at 35 weeks. Plan for FB and pitocin. MPDPS - consent signed 05/03/23 - counseled and desires, see separate counseling note - 196lb - No past SHx Hx depression - mood stable, denies SI/HI Recurrent UTI - Klebsiella Uti on 05/17/23 - was erx macrobid suppression, reports compliance Antepartum course reviewed - 1 h 145, 3 hr nml, sero neg, Ri, VZVequiv, A+/neg, GBS unk, Pap NIL 11/30/22 - H/H, plt: 10.5 / 30.6, 260 on 04/28/23 - [facility] Fetus - Presentation on admission: cephalic - anterior placenta - EFW: 2445 g, 62%tile by BSUS - LIN 13.62 cm - FHT reactive and reassuring - Normal anatomy scan Placenta Accreta Screening Prior ? : No Prior Uterine Surgery?: No Placenta low lying/previa in current ? : No Ultrasound suspicion of PASD in current ?: No Screening outcome: A positive screening outcome indicates a history of prior delivery or prior uterine surgery, AND the presence of either a placenta low lying/previa or ultrasound suspicion of PASD in the current . Negative screening. Rana Lahham, MD OBGYN PGY-4 06/16/2023 1:40 PM Informed consent discussed with the patient, including: condition, proposed care, treatments and services, alternative forms of treatment, and risks of no treatment. Details discussed around the procedures to be used, and the risks and hazards involved, potential benefits, and side effects of the patient s proposed care, treatment, and services; the likelihood of the patient achieving his or her goals; and any potential problems that might occur during recuperation. Reasonable alternative also discussed with the patient s proposed care, treatment, and services. The discussion encompasses risks, benefits, and side effects related to the alternative and risks related to not receiving the proposed care, treatment, and services. Informed consent discussed with the patient, including: condition, proposed care, treatments and services, alternative forms of treatment, and risks of no treatment. Details discussed around the procedures to be used, and the risks and hazards involved, potential benefits, and side effects of the patient s proposed care, treatment, and services; the likelihood of the patient achieving his or her goals; and any potential problems that might occur during recuperation. [employer] Associated attestation - Natalio Burrows MD - 06/16/2023 5:17 PM [employer] Admitted for delivery, severe preeclampsia at 35 weeks. [facility] 2023-06-01 16:53:20 TRIAGE/L&D HISTORY & PHYSICAL IDENTIFYING DATA Robert Jefferson is 28 year old, /White, 32w6d, female with KATHY 07/21/2023, by Last Menstrual Period. : 1995 Primary Care Physician: Adonay Champagne CHIEF COMPLAINT Elevated blood pressure HISTORY OF PRESENT ILLNESS Robert Jefferson is a 28 year old at 32w6d who presents for elevated blood pressures. Patient was seen in clinic today where she had elevated blood pressures of 152/101 and 144/106. She reports having a headache during her visit however it has now resolved. She denies any vision changes, RUQ pain, n/v. She denies any contractions, DFM, LOF or VB. PAST OBSTETRIC HISTORY OB History Para Term AB Living 3 2 2 0 0 2 SAB IAB Ectopic Multiple Live Births 0 0 0 0 2 # Outcome Date GA Lbr Marshall/2nd Weight Sex Delivery Anes PTL Lv 3 Current 2 Term 07/09/16 37w0d 2770 g M VAGINAL EPI CHET Comments: Maternal Age: 23; :2; Parity:2 Mother's Blood Type:A pos Maternal Serological Test:normal Maternal Group B Strep Screening:negative; Adequate Treatment:not applicable Complications:Maternal Anemia, Maternal PreEclampsia on magnesi 1 Term 04/26/15 39w0d 4309 g M NSVB LOW CHET Complications: Pre-eclampsia PAST MEDICAL HISTORY Problem list: Patient Active Problem List Diagnosis Date Noted 32 weeks gestation of 06/01/2023 Elevated blood pressure affecting , antepartum 06/01/2023 30 weeks gestation of 05/17/2023 Obesity (BMI 30-39.9) 05/17/2023 Tubal ligation status 05/03/2023 Declines flu vaccine 05/03/2023 Abnormal maternal glucose tolerance, antepartum 04/29/2023 Anemia of mother in , antepartum 04/29/2023 Recurrent UTI (urinary tract infection) complicating 12/03/2022 Susceptible to varicella (non-immune), currently 12/01/2022 Supervision of high-risk 11/30/2022 Multiparity 11/30/2022 History of pre-eclampsia 11/30/2022 History of depression 11/30/2022 Obesity in 07/08/2016 Operations: Past Surgical History: Procedure Laterality Date CHOLECYSTECTOMY 05/19/2015 TONSILLECTOMY Past Medical History: Diagnosis Date Anemia Anxiety Depression 2020 not on medication at this time, resolved at this time Pre-eclampsia in third trimester 07/08/2016 CURRENT HEALTH STATUS Medications: No current facility-administered medications for this encounter. Allergies and drug reactions: Pcn [penicillins] HOME MEDICATIONS Medications Prior to Admission Medication Sig Dispense Refill Last Dose Nitrofurantoin&Nit. Macrocryst (MACROBID) 100 mg capsule Take 1 capsule by mouth in the morning for 30 days. 30 capsule 0 buPROPion XL (WELLBUTRIN XL) 150 mg 24 hr tablet Take 1 tablet by mouth in the morning. 30 tablet 0 SERTraline (ZOLOFT) 50 mg tablet Take 1 tablet by mouth in the morning. 30 tablet 0 Iron Fum & P-FA-Vit B & C No.9 (INTEGRA PLUS) 125 mg iron- 1 mg Cap Take 1 capsule by mouth in the morning. 30 capsule 6 Nitrofurantoin&Nit. Macrocryst 100 mg capsule Take 1 capsule by mouth in the morning and 1 capsule in the evening. 14 capsule 0 multivitamin ( VITAMIN) tablet Take 1 tablet by mouth in the morning. 90 tablet 3 vit no.124/iron/folic ( VITAMIN ORAL) Take by mouth. Taking ondansetron 4 mg disintegrating tablet Take 1 tablet by mouth every 8 (eight) hours as needed for Nausea and Vomiting (N/V). 20 tablet 0 Not Taking SOCIAL HISTORY Tobacco History: Social History Tobacco Use Smoking Status Never Smokeless Tobacco Never Drug History: Social History Substance and Sexual Activity Drug Use No Alcohol History: Social History Substance and Sexual Activity Alcohol Use No Alcohol/week: 0.0 standard drinks of alcohol FAMILY HISTORY Family History Problem Relation Age of Onset Depression Mother Hypertension Mother Asthma Father Arthritis Father Depression Paternal Aunt Breast Cancer Maternal Grandmother Arthritis Paternal Grandfather Diabetes Paternal Grandfather Heart Paternal Grandfather High cholesterol Paternal Grandfather defects NoFHx Colon Cancer NoFHx Ovarian Cancer NoFHx Uterine Cancer NoFHx Cancer NoFHx Genetic NoFHx Mental retardation NoFHx Neurological NoFHx Osteoporosis NoFHx Psychiatry NoFHx REVIEW OF SYSTEMS General: negative Skin: negative HEENT: negative Neck: negative HEME: negative Resp: negative Cardio: negative GI: negative : negative Endo: negative Neuro: negative Back: negative NNAMDI: negative Psych: negative VITAL SIGNS BP: (122-152)/(80-106) Temp: [36.3 ?C (97.4 ?F)-36.6 ?C (97.9 ?F)] Temp source: Oral (06/01 1700) Pulse: [70-80] Resp: [18-20] SpO2: [99 %-100 %] Height: [149.9 cm (4' 11")] Weight: [87.6 kg (193 lb 3 oz)-88.6 kg (195 lb 4.8 oz)] BMI (calculated): [39.02-39.45] PHYSICAL EXAMINATIONS General: patient alert and in no acute distress HEENT: symmetric, negative for masses Lungs: unlabored breathing Cardiology: peripheral pulses intact and regular Abdomen: soft, non-tender, non-distended, and Gravid Extremities: no clubbing, cyanosis, or edema Neuro: patient moving all extremities, no facial droop : deferred REVIEW OF LABORATORY, PATHOLOGY, AND RADIOLOGY DATA Lab results: Type & Screen Lab Results Component Value Date/Time IABORH A POSITIVE 11/30/2022 03:28 PM IAT Negative 11/30/2022 03:28 PM Serologies Lab Results Component Value Date/Time VZVIGG Equivocal 11/30/2022 03:28 PM RUBG Positive 11/30/2022 03:28 PM SYPIGG Non-reactive 05/17/2023 09:39 AM SYPIGG Nonreactive 07/09/2016 12:30 AM HBSAG Negative 11/30/2022 03:28 PM HBSAG 0.06 11/30/2022 03:28 PM Chlamydia Lab Results Component Value Date/Time VCAA Negative 04/15/2023 02:50 PM Group B Strep Lab Results Component Value Date/Time CGB Negative 07/01/2016 03:14 PM GTT Lab Results Component Value Date/Time GLUF 96 05/03/2023 08:36 AM IASS1WV 150 05/03/2023 09:35 AM GLU3H 104 05/03/2023 11:35 AM CBC Lab Results Component Value Date/Time HGB 10.5 (L) 04/28/2023 09:30 AM HCT 30.6 (L) 04/28/2023 09:30 AM PLT 260 04/28/2023 09:30 AM Active Hospital Problems Diagnosis Date Noted 32 weeks gestation of 06/01/2023 Elevated blood pressure affecting , antepartum 06/01/2023 Tubal ligation status 05/03/2023 Recurrent UTI (urinary tract infection) complicating 12/03/2022 Pending chloe-still positive Susceptible to varicella (non-immune), currently 12/01/2022 Address pp Supervision of high-risk 11/30/2022 Multiparity 11/30/2022 History of pre-eclampsia 11/30/2022 In both History of depression 11/30/2022 Reports last on meds x1year ago Resolved Hospital Problems No resolved problems to display. Present on Admission: Supervision of high-risk Multiparity History of pre-eclampsia History of depression Susceptible to varicella (non-immune), currently Recurrent UTI (urinary tract infection) complicating Tubal ligation status 32 weeks gestation of Elevated blood pressure affecting , antepartum ASSESSMENT AND PLAN Robert Jefferson is a 28 year old at 32w6d by d/u(13) who presents for elevated blood pressures. Elevated BP Hx preeclampsia - Sent from clinic due to elevated BP 152/101 and 144/106 - Baseline BP 120-130s/60-90s - Baseline 24hr urine 320mg protein - Denies headache, vision changes, RUQ pain currently - BP in triage: 120-130s/80s - Plan: Will continue to monitor BP MPDPS - consent signed 05/03/23 - will need counseling on admission Hx depression - mood stable, denies SI/HI Recurrent UTI - Klebsiella Uti on 05/17/23 - was erx macrobid, currently on day 6 per pt Anemia in - H/H, plt: 10.5/30.6, 260, on 04/28/23 - reports compliance with iron Antepartum course reviewed - 1 h 145, 3 hr nml, sero neg, Ri, VZVequiv, A+/neg, GBS unk, Pap NIL 11/30/22 - H/H, plt: 10.5 / 30.6, 260 on 04/28/23 - [facility] F[facility] - Presentation on admission: cephalic - anterior placenta - EFW: 1778 g, 61%tile by M US on 05/17/23 - FHT reactive and reassuring - Normal anatomy scan Placenta Accreta Screening Prior ? : No Prior Uterine Surgery?: No Placenta low lying/previa in current ? : No Screening outcome: Negative screening. Dispo: Patient with elevated blood pressures in clinic however normotensive here and is asymptomatic. Will continue BP monitor and check out to night team. Janett Guallpa MD [employer] Associated attestation - Natalio Burrows MD - 06/02/2023 9:54 AM [employer] Agree with plan, discussed with resident. [facility] Procedure Notes Date/Time Note Provider Source 2023-06-16 18:54:28 Associated Order(s): Central Neuraxial Block Central Neuraxial Block Date/Time: 06/16/2023 6:40 PM Performed by: Indigo Hirsch MD Authorized by: Henrry Phan MD Patient Location: OB Reason for Block: OB request, Patient request, Labor analgesia, Surgical anesthesia and Post-op pain management Staff: Anesthesiologist: Henrry Phan MD Resident/UNIT MANAGER RN: Jamaal Pierce DO Performed by: resident/UNIT MANAGER RN Preanesthetic Checklist: patient identified, IV checked, risks and benefits explained, monitors and equipment checked, timeout performed, pre-op evaluation, site marked and anesthesia consent Procedure: Type of Neuraxial: Epidural Epidural Description: 1st attempt Sterility Prep cap, drape, gloves, hand hygiene and mask Sedation Level no sedation Patient Position: sitting Prep: Betadine and patient draped Monitoring: heart rate, continuous pulse ox, heart rate / toco and NIBP Location: lumbar (1-5) Lumbar: L4-L5 Approach: midline Technique: catheter and SHANITA saline Guidance with: landmark technique} Epidural/Spinal Rye and/or Catheter: Epidural/Spinal Kit: Miriam Needle Type: Tuohy Needle Gauge: 17 G Needle Length: 3.5 in (8.89 cm) Needle Insertion Depth: 7 Catheter Type: multiport Catheter Size: 19 G Catheter at Skin Depth: 12 Number of Attempts: 1 Test Dose: lidocaine 1.5% with epinephrine 1-to-200,000 and negative Dose: 5 cc Catheter Securement Method: surgical tape, Tegaderm, clear occlusive dressing and liquid medical adhesive Assessment: Block Outcome: a full evaluation is pending and patient tolerated procedure well Procedure Assessment: patient tolerated procedure well with no complications Notes: Timeout performed. Patient prepped with betadine x3 and draped. Local anesthetic infiltrated in skin. Needle inserted to depth of 7cm, attempt x1, negative aspiration x3, test dose given and negative, catheter secured at 12cm, patient laid down and remained HDS. There was no unintentional dural puncture. PCEA pump and button explained, fall precautions given. Settings: 11ml/hr and bolus of 4mL given. Level to be assessed. [employer] AN-ANESTHESIOLOGY [facility] 2023-06-16 15:49:57 Robert Jefferson is a 28 year old female 35w0d Diaz Insertion: Insertion date and time: 06/16/23 3:30 PM Diaz catheter inserted through cervix in sterile fashion using sterile technique and inflated with 60 cc sterile saline. Diaz bulb firmly in place inside internal os. Catheter taped to patient leg under traction. Patient tolerated procedure well. Please use the table below for: SVE Fingertip/25/-3 CERVIX: Consistency : soft; Position: median, Station: -3 Score 0 1 2 3 Dilation (cm) 0 cm 1-2 cm 3-4 cm >5 cm Effacement 0 - 30 % 40 - 50 % 60 - 70 % > 80 % Consistency of the cervix Stiff Moderately soft Very soft Position of the cervix Posterior Median Anterior Station -3 -2 -1 to 0 +1, +2 Jose Marina MD CONTROL PANEL ASSEMBLER Resident Physician 06/16/23 3:50 PM [employer] OG-OBSTETRICS & GYNECOLOGY [facility]
[2024-05-28] MEDS ORDERED: NA CHLORIDE 0.9% 1,000 ML ONE (01:28)
[2024-05-28] MEDS ORDERED: ACETAMINOPHEN 500 MG TAB ONE (01:28)
[2024-05-28 02:14] LABS: Absolute Eosinophils 0.1 K/uL (0-0.5); Absolute Lymphocytes (CBC) 0.3 K/uL (0.7-4.9); Absolute Monocytes 0.2 K/uL (0.1-1.3); Absolute Neutrophil 3.9 K/uL (1.8-8.0); Basophils % 0.8 % (0-1.3); Eosinophils % 2.4 % (0-4.4); Hematocrit 34.8 % (36.0-45.0); Hemoglobin 11.4 g/dL (12.0-15.0); Lymphocytes % 7.5 % (15.3-44.8); MCH 27.9 pg (27.0-35.0); MCHC 32.8 g/dL (32.0-36.0); MCV 85.1 fL (80-100); MPV 8.6 fL (7.6-11.3); Monocytes % 3.7 % (3.3-12.3); Neutrophils % 85.6 % (41.7-73.7); Platelets 216 thou/uL (152-406); RBC Red Blood Cell Count 4.09 M/uL (3.86-4.86); Red Cell Distribution Width 15.3 % (12.1-15.2)
[2024-05-28 02:17] LABS: Albumin 3.6 g/dL (3.4-5.0); Albumin/Globulin Ratio 0.8 (1.1-1.8); Anion Gap 11.5 mEq/L (5.0-15.0); Bilirubin Total 0.8 mg/dL (0.2-1.0); Globulin 4.6 g/dL (2.3-3.5); Potassium 3.5 mEq/L (3.5-5.1); Protein, Total 8.2 g/dL (6.4-8.2)
[2024-05-28 02:35] LABS: SARS-CoV-2 Antigen CONTROL BLUE LINE VIS/BG OK; SARS-CoV-2 Antigen Rapid Res Negative (Negative)
[2024-05-28 02:37] LABS: Monoscreen NEG (NEG)
[2024-05-28] MEDS ORDERED: OSELTAMIVIR 75 MG CAP PO ONE (03:01)
[2024-05-28] MEDS ORDERED: IBUPROFEN 400 MG TAB ONE (03:01)
--- NOTE | 2024-05-28 03:23 | EDPHYS ---
Physician Documentation [facility] Name: Mckenzie Ornelas Age: 29 yrs Sex: Female : 1995 Arrival Date: 05/28/2024 Time: 01:03 Bed 5 Private MD: ED Physician Lauri Doyle HPI: 05/28 01:20 This 29 yrs old Female presents to ER via Ambulatory with complaints of Fever, cp Vomiting, Shortness Of Breath. 01:20 The patient has shortness of breath with light activity. cp 01:20 Associated signs and symptoms: Pertinent positives: productive cough, fever, times 4 cp days. The patient reports fever, with an emergency department temperature of 101.5 degrees Fahrenheit. Associated signs and symptoms: Pertinent negatives: abdominal pain, headache, sore throat. 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 - Infectious Disease History:: Denies. - Social history:: Smoking status: Patient denies any tobacco usage or history of. Patient/guardian denies using alcohol, street drugs. ROS: 01:25 Constitutional: Positive for body aches, fever, cp 01:25 Eyes: Negative for injury, pain, redness, and discharge, cp 01:25 ENT: Negative for drainage from ear(s), ear pain, sore throat, difficulty swallowing, difficulty handling secretions, 01:25 Cardiovascular: Negative for chest pain, 01:25 Respiratory: Positive for cough, shortness of breath, 01:25 Abdomen/GI: Positive for nausea and vomiting, diarrhea, Negative for abdominal pain, 01:25 Neuro: Negative for altered mental status, numbness, syncope, weakness, cp 01:25 All other systems are negative, cp Exam: 01:33 Constitutional: The patient appears in no acute distress, alert, awake, cp non-diaphoretic, non-toxic, well developed, well nourished, obese, 01:33 Head/Face: Normocephalic, atraumatic. cp 01:33 Eyes: Periorbital structures: appear normal, Conjunctiva: normal, no exudate, no injection, Sclera: no appreciated abnormality, Lids and lashes: appear normal, bilaterally, :33 ENT: External ear(s): are unremarkable, Ear canal(s): are normal, clear, TM's: dullness, bilaterally, Nose: is normal, Mouth: Lips: moist, Oral mucosa: pink and intact, moist, Posterior pharynx: Airway: no evidence of obstruction, patent, :33 Chest/axilla: Inspection: normal, :33 Cardiovascular: Rate: tachycardic, Rhythm: regular, :33 Respiratory: the patient does not display signs of respiratory distress, Respirations: normal, no use of accessory muscles, no retractions, labored breathing, is not present, Breath sounds: bronchial sounds, that are mild, are heard diffusely, stridor, is not appreciated, wheezing: is not appreciated, 33 Abdomen/GI: Inspection: obese Palpation: abdomen is soft and non-tender, in all quadrants, Back: CVA tenderness, is absent, :33 Neuro: Orientation: to person, place \T\ time. Mentation: is normal, :43 ECG was reviewed by the Attending Physician. cp Vital Signs: 01:13 BP 160 / 98; Pulse 125; Resp 18 S; Temp 101.5(O); Pulse Ox 96% on R/A; Weight 140.61 kg lg3 (R); Height 4 ft. 11 in. (R); 02:43 BP 130 / 75; Pulse 111; Resp 16 S; Temp 100.4(O); Pulse Ox 96% on R/A; lg3 03:41 BP 135 / 72; Pulse 91; Resp 17 S; Temp 99.9(O); Pulse Ox 97% on R/A; lg3 01:13 Body Mass Index 62.61 (140.61 kg, 149.86 cm) lg3 MDM: 01:09 Medical Screening Exam initiated yamil 02:00 Differential diagnosis: viral Infection, bacterial infection, URI, bronchitis, cp pneumonia UTI. 03:22 Data reviewed: vital signs, nurses notes, lab test result(s), EKG, radiologic studies, cp plain films, and as a result, I will discharge patient. 03:23 I considered the following discharge prescriptions or medication management in the emergency department Medications were administered in the Emergency Department. See AUG. 03:23 Counseling: I had a detailed discussion with the patient and/or guardian regarding the historical points, exam findings, and any diagnostic results supporting the discharge/admit diagnosis, lab results, radiology results, to return to the emergency department if symptoms worsen or persist or if there are any questions or concerns that arise at home. Response to treatment: the patient's symptoms have markedly improved after treatment, and as a result, I will discharge patient. 05/28 01:16 Order name: Influenza Screen (a \T\ B); Complete Time: 02:51 05/28 02:51 Interpretation: Reviewed. 05/28 01:16 Order name: SARS RAPID; Complete Time: 02:51 05/28 02:51 Interpretation: Reviewed. 05/28 01:16 Order name: Urinalysis W/Microscopic 05/28 01:16 Order name: Strep; Complete Time: 02:51 05/28 01:16 Order name: [place] Screen Profile; Complete Time: 02:51 05/28 01:16 Order name: CBC with Diff 05/28 02:26 Interpretation: Normal except: HGB 11.4; HCT 34.8; RDW 15.3; KVNG% 85.6; LYM% 7.5; LYMA cp 0.3. 05/28 01:16 Order name: CMP; Complete Time: 02:25 05/28 02:26 Interpretation: Normal except: NA 133; GLUC 214; GFR 76; AST 191; ALT 166; ALK 137; cp GLOB 4.6; A/G 0.8. 05/28 01:16 Order name: Lipase; Complete Time: 02:25 05/28 02:21 Order name: Manual Differential EDWI 05/28 02:37 Order name: Throat Culture EDMS 05/28 01:16 Order name: XRAY Chest (1 view) 05/28 01:29 Order name: EKG; Complete Time: 01:29 05/28 01:16 Order name: IV Saline Lock; Complete Time: 01:42 05/28 01:16 Order name: Labs collected and sent; Complete Time: 01:42 05/28 01:29 Order name: EKG - Nurse/Tech; Complete Time: 01:42 cp EC:43 Rate is 122 beats/min. Rhythm is regular. SC interval is normal. QRS interval is cp normal. QT interval is normal. T waves are Inverted in leads aVR, V2, V3. Interpreted by me. Reviewed by me. Administered Medications: 01:30 Drug: Acetaminophen PO 1000 mg PO once Route: PO; lg3 03:03 Follow up: Response: No adverse reaction; Marked relief of symptoms; Temperature is lg3 decreased 01:42 Drug: NS 0.9% IV 1000 ml IV at 1000 ml once; to be given as a bolus over 60 minutes lg3 Route: IV; Rate: 1000 ml; Site: right antecubital; 03:03 Follow up: Response: No adverse reaction; IV Status: Completed infusion; IV Intake: lg3 1000ml 03:03 Drug: Oseltamivir PO 75 mg PO once Route: PO; lg3 03:42 Follow up: Response: No adverse reaction lg3 03:03 Drug: Ibuprofen PO 800 mg PO once Route: PO; lg3 03:42 Follow up: Response: No adverse reaction; Marked relief of symptoms lg3 Disposition Summary: 05/28/24 03:23 Discharge Ordered Notes: Location: Home cp Problem: new cp Symptoms: have improved cp Condition: Stable cp Diagnosis - Influenza due to identified novel influenza A virus with other manifestations cp - Fever presenting with conditions classified elsewhere cp - Nausea with vomiting, unspecified cp Followup: cp - With: Private Physician - When: 2 - 3 days - Reason: Worsening of condition Discharge Instructions: - Discharge Summary Sheet cp - Fever, Adult cp - Influenza, Adult cp - Nausea and Vomiting, Adult cp Forms: - Work release form cp - Medication Reconciliation Form cp - Antibiotic Education cp - Prescription Opioid Use cp - Patient Portal Instructions cp - Leadership Thank You Letter cp Prescriptions: - Bromfed DM 2-30-10 mg/5 mL Oral syrup - administer 10 milliliter ORAL route 4 times per day as needed for cold cp symptoms; 240 milliliter; Refills: 0, Product Selection Permitted - Ibuprofen 800 mg Oral Tablet - take 1 tablet ORAL route every 8 hours As needed take with food; 30 tablet; cp Refills: 0, Product Selection Permitted - Zithromax Z-Fidel 250 mg Oral Tablet - take 1 tablet ORAL route as directed for 5 days Day 1 - take two (2) tablets cp one time. Day 2, 3, 4 , 5 take one (1) tablet once daily.; 6 tablet; Refills: 0, Product Selection Permitted - Tamiflu 75 mg Oral capsule - take 1 tablet ORAL route every 12 hours for 5 days; 10 tablet; Refills: 0, cp Product Selection Permitted - ondansetron 8 mg Oral Tablet,disintegrating - take 1 tablet ORAL route every 12 hours; 10 tablet; Refills: 0, Product cp Selection Permitted Signatures: Dispatcher [employer] EDLauri Christianson MD MD cha Page, Corey PA PA Dyan Cunningham RN RN lg3 Corrections: (The following items were deleted from the chart) 01:15 01:15 PSHx: tubal ligation (Tonsillectomy); lg3 lg3 01:17 01:17 Chest Single View+[id number].BRZ ordered. [facility] EDWI
--- NOTE | 2024-05-28 03:23 | ER ---
Nurse's Notes [facility] Name: Mckenzie Ornelas Age: 29 yrs Sex: Female : 1995 Arrival Date: 05/28/2024 Time: 01:03 Bed 5 Private MD: Diagnosis: Influenza due to identified novel influenza A virus with other manifestations;Fever presenting with conditions classified elsewhere;Nausea with vomiting, unspecified Presentation: 05/28 01:13 Chief complaint: Patient states: cough, congestion, fever X4 days. Coronavirus screen: lg3 Client denies travel out of the [place] in the last 14 days. Client presents with at least one sign or symptom that may indicate coronavirus-19. Standard/surgical mask placed on the client. Ebola Screen: No symptoms or risks identified at this time. Initial Sepsis Screen: Does the patient meet any 2 criteria? Temp <36.0*C (96.8*F)) or > 38.3*C (100.9*F). HR > 90 bpm. Yes Does the patient have a suspected source of infection? No. Patient's initial sepsis screen is negative. Risk Assessment: Do you want to hurt yourself or someone else? Patient reports no desire to harm self or others. Onset of symptoms was May 24, 2024. 01:13 Method Of Arrival: Ambulatory lg3 01:13 Acuity: MARY BETH 3 lg3 Triage Assessment: 01:15 General: Appears in no apparent distress. comfortable, Behavior is calm, cooperative. lg3 Pain: Complains of pain in back. EENT: No deficits noted. Parent/caregiver reports the patient having nasal congestion nasal discharge. Neuro: No deficits noted. De Guzman Agitation-Sedation Scale (RASS): 0 - Alert and Calm Level of Consciousness is awake, alert, obeys commands, Oriented to person, place, time, situation. Cardiovascular: No deficits noted. Denies chest pain, Capillary refill < 3 seconds Clubbing of nail beds is absent JVD is absent Patient's skin is warm and dry. Respiratory: Reports shortness of breath cough that is dry, pain with cough Airway is patent Respiratory effort is even, unlabored, Respiratory pattern is regular, symmetrical, Breath sounds are clear bilaterally. GI: Abdomen is round non-distended, obese, Bowel sounds present X 4 quads. Abd is soft and non tender X 4 quads. Reports diarrhea, nausea. : No signs and/or symptoms were reported regarding the genitourinary system. Derm: No deficits noted. No signs and/or symptoms reported regarding the dermatologic system. Skin is intact, is healthy with good turgor, Skin is dry, Skin is normal, Skin temperature is warm. Musculoskeletal: No deficits noted. Circulation, motion, and sensation intact. Range of motion: intact in all extremities. 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 - Infectious Disease History:: Denies. - Social history:: Smoking status: Patient denies any tobacco usage or history of. Patient/guardian denies using alcohol, street drugs. Screenin:17 [facility] ED Fall Risk Assessment (Adult) History of falling in the last 3 months, lg3 including since admission No falls in past 3 months (0 pts) Confusion or Disorientation No (0 pts) Intoxicated or Sedated No (0 pts) Impaired Gait No (0 pts) Mobility Assist Device Used No (0 pt) Altered Elimination No (0 pt) Score/Fall Risk Level 0 - 2 = Low Risk Oriented to surroundings, Maintained a safe environment, Educated pt \T\ family on fall prevention, incl call for assistance when getting out of bed, Assessed \T\ reinforced patient's understanding of fall precautions. Abuse screen: Denies threats or abuse. Denies injuries from another. Nutritional screening: No deficits noted. Tuberculosis screening: No symptoms or risk factors identified. Assessment: 01:17 General: see triage assessment. GI: Abdomen is round non-distended, obese, Bowel sounds lg3 present X 4 quads. Abd is soft and non tender X 4 quads. Reports diarrhea, nausea. 02:43 Reassessment: Patient appears in no apparent distress at this time. No changes from lg3 previously documented assessment. Patient and/or family updated on plan of care and expected duration. Pain level reassessed. Patient is alert, oriented x 3, equal unlabored respirations, skin warm/dry/pink. 03:41 Reassessment: Patient appears in no apparent distress at this time. No changes from lg3 previously documented assessment. Patient and/or family updated on plan of care and expected duration. Pain level reassessed. Patient is alert, oriented x 3, equal unlabored respirations, skin warm/dry/pink. Patient states feeling better. Patient states symptoms have improved. Vital Signs: 01:13 BP 160 / 98; Pulse 125; Resp 18 S; Temp 101.5(O); Pulse Ox 96% on R/A; Weight 140.61 kg lg3 (R); Height 4 ft. 11 in. (R); 02:43 BP 130 / 75; Pulse 111; Resp 16 S; Temp 100.4(O); Pulse Ox 96% on R/A; lg3 03:41 BP 135 / 72; Pulse 91; Resp 17 S; Temp 99.9(O); Pulse Ox 97% on R/A; lg3 01:13 Body Mass Index 62.61 (140.61 kg, 149.86 cm) lg3 ED Course: 01:05 Patient arrived in ED. im 01:08 Lauri López PA is PHCP. cp 01:08 Lauri Doyle MD is Attending Physician. cp 01:15 Triage completed. lg3 01:15 Arm band placed on right wrist. lg3 01:17 Patient has correct armband on for positive identification. Placed in gown. Bed in low lg3 position. Call light in reach. Side rails up X 1. Client placed on continuous cardiac and pulse oximetry monitoring. NIBP monitoring applied. Door closed. Noise minimized. Pillow given. 01:17 Patient maintains SpO2 saturation greater than 95% on room air. lg3 01:24 XRAY Chest (1 view) In Process Unspecified. EDMS 01:42 Initial lab(s) drawn, by ED staff, sent to lab. EKG done, by ED staff, reviewed by lg3 Lauri YE COVID swab sent to lab. Flu and/or RSV swab sent to lab. Strep swab sent to lab. Inserted saline lock: 20 gauge in right antecubital area, using aseptic technique. Blood collected. Flushed with 10 mL NS. 01:42 CBC with Diff Sent. lg3 01:42 CMP Sent. lg3 01:42 Lipase Sent. lg3 01:42 [place] Screen Profile Sent. lg3 01:42 Strep Sent. lg3 01:42 SARS RAPID Sent. lg3 01:42 Influenza Screen (a \T\ B) Sent. lg3 02:43 Dyan Lopez, RN is Primary Nurse. lg3 03:03 Urinalysis W/Microscopic Sent. lg3 03:42 No provider procedures requiring assistance completed. IV discontinued, intact, lg3 bleeding controlled, No redness/swelling at site. Pressure dressing applied. Administered Medications: 01:30 Drug: Acetaminophen PO 1000 mg PO once Route: PO; lg3 03:03 Follow up: Response: No adverse reaction; Marked relief of symptoms; Temperature is lg3 decreased 01:42 Drug: NS 0.9% IV 1000 ml IV at 1000 ml once; to be given as a bolus over 60 minutes lg3 Route: IV; Rate: 1000 ml; Site: right antecubital; 03:03 Follow up: Response: No adverse reaction; IV Status: Completed infusion; IV Intake: lg3 1000ml 03:03 Drug: Oseltamivir PO 75 mg PO once Route: PO; lg3 03:42 Follow up: Response: No adverse reaction lg3 03:03 Drug: Ibuprofen PO 800 mg PO once Route: PO; lg3 03:42 Follow up: Response: No adverse reaction; Marked relief of symptoms lg3 Medication: 03:43 VIS not applicable for this client. lg3 Intake: 03:03 IV: 1000ml; Total: 1000ml. lg3 Outcome: 03:23 Discharge ordered by MD. cp 03:42 Discharged to home ambulatory, lg3 03:42 Condition: stable 03:42 Discharge instructions given to patient, Instructed on discharge instructions, follow up and referral plans. medication usage, Demonstrated understanding of instructions, follow-up care, medications, Prescriptions given X 5 03:43 Patient left the ED. lg3 Signatures: Dispatcher [employer] EDMS Lauri López PA PA cp Able, Lacie, JEFFERY RN lg3 Eulalia Ott Corrections: (The following items were deleted from the chart) 01:15 01:15 PSHx: tubal ligation (Tonsillectomy); lg3 lg3 02:56 02:43 BP 130 / 75; Pulse 111bpm; Resp 16bpm; Spontaneous; Pulse Ox 96% RA; lg3 lg3
[2024-05-28 03:38] LABS: Specific Gravity 1.027 (1.005-1.030); Urine Bacteria <20 /HPF (<20); Urine Bilirubin NEGATIVE (Negative); Urine Blood 1+ (Negative); Urine Clarity Extremely Turbid (Clear); Urine Color Yellow (Yellow); Urine Culture Reflex Order NOT NEEDED; Urine Glucose 1+ (Negative); Urine Ketones NEGATIVE (Negative); Urine Micro Reflex YN NO BILL MICROSCOPIC; Urine Mucus Slight /HPF (None Seen); Urine Nitrite NEGATIVE (Negative); Urine Protein 3+ (Negative); Urine RBC None Seen /HPF (None Seen); Urine Urobilinogen Normal (Normal); Urine WBC <5 /HPF (<5)
[2024-05-28 04:14] VITALS: BP 135/72; TEMP 99.9; O2SAT 97
[2024-05-28 04:25] LABS: Band Neutrophils 15 % (0-1); Blood Morphology Comment NOT SEEN (NOT SEEN); Differential Total Cells Count 100; Eosinophils 1 % (0-3); Lymphocytes 7 % (15-42); Monocytes 3 % (0-10); Platelet Estimate ADEQ; Segmented Neutrophils 74 % (40-80)
--- NOTE | 2024-05-28 07:08 | RAD REPORT ---
EXAMINATION: XR CHEST 1 VIEW INDICATION: Female, 29 years old, Cough;Fever TECHNIQUE: 1 view COMPARISON(S): None. FINDINGS: Soft tissue attenuation and beam underpenetration limit assessment. SUPPORT DEVICES: None. LUNGS/PLEURA: Low lung volumes with associated vascular crowding. No evident pleural effusion or pneu mothorax. HEART/MEDIASTINUM: Normal size and configuration. OTHER: No acute osseous findings. IMPRESSION: Low lung volumes without acute cardiopulmonary findings. Electronically signed by: Ac Carrera MD 05/28/2024 02:14 AM [facility] Due to temporary technical issues with the [employer] reporting system, reports are being matias d by the in-house radiologist without review as a courtesy to ensure prompt reporting the interpreting radiologist is fully responsible for the content of the report. Transcribed Date/Time: 05/28/2024 7:08 AM
--- NOTE | 2024-05-29 12:01 | EKG ---
Test Date: 2024-05-28 Test Time: 01:39:22 Schedule Clerk: LA MEASUREMENT RESULTS: Intervals: Rate: 122 CT: 124 QRSD: 80 QT: 302 QTc: 430 [place]: P: 49 CT: 124 QRS: 46 T: 37 INTERPRETIVE STATEMENTS: Sinus tachycardia Septal infarct, age undetermined Abnormal ECG Compared to ECG 10/05/2017 08:14:39 Myocardial infarct finding now present Electronically Signed On 05-29-24 12:00:30 SKIP LOADER by Kar Kendall
== END 2024-05-28 03:43 | disposition home or self-care (01) ==
LOC: ER 01:03
DX: J10.89 Influenza due to other identified influenza virus with other manifestations (principal); R11.2 Nausea with vomiting, unspecified; Z11.52 Encounter for screening for COVID-19
CPT/HCPCS: 36415; 71045; 80053; 81001; 83690; 85025; 86308; 87070; 87081; 87804; 87811; 93005; 96360; 99285; J7030